=== PATIENT | female | born 1935 | race Caucasian/White ===

== ENCOUNTER 2017-03-14 02:17 | Inpatient (IN) | payer OTHER ==
[2017-03-14] VITALS (41 sets, daily range): BP systolic 102–166; BP diastolic 43–86; PULSE 61–97; TEMP 36.6–36.8; O2SAT 90–100; Ht 152.4 cm; Wt 71.9 kg
[~2017-03-14] VITALS: Ht 152.4 cm; Wt 71.9 kg
[~2017-03-14 02:17] MED LIST: ASPI81TA28 PO; CLC100 PO; GLC5 PO; LOSA1TAB38 PO; METO50TA7 PO; MRLP17 PO; NOTE:; OMEP20CA9 PO; PATADAY 2% OPB; TRAM-10 PO; TRIA0.1C20; XNX25 PO
[2017-03-14] MEDS ORDERED: NITROGLYCERIN 0.4 MG SL PER TAB CHARGE ONE (02:41)
--- NOTE | 2017-03-14 02:53 | EMERGENCY ROOM VISIT NOTE ---
History Report prepared by Wilman: Mino Ferreira Under the Supervision of: Dr. Clara Alexander D.O. First contact with patient: 02:27 Chief Complaint: CHEST PAIN Stated Complaint: CHEST PAIN History of Present Illness The patient is an 81 year old female who presents to the Emergency Room with complaints of intermittent chest pain that started around midnight. The patient has also been experiencing bilateral arm pain and shoulder pain. Her pain was rated 8/10 in severity at its worst. The patient has had the same pain three times over the past month. She notes that the pain was worse tonight. She was given 1 dose of Nitroglycerin and 324 mg Aspirin en route to the ED. The patient's pain initially resolved after receiving nitroglycerin but returned upon arrival to the ED. The patient had a heart attack with a stent placed in the mid LAD on 08/10/11. She also has a pacemaker. The patient follows up with Dr. Sanz (Livestock Showman) and Dr. Pino (Family Medicine). The patient also complains of a dry mouth. She notes that she was sick recently. Source of History: patient Onset: midnight Position: chest Symptom Intensity: 8/10 Timing: intermittent Note: Patient also complains of arm / shoulder pain. Review of Systems See HPI for pertinent positives & negatives. A total of 10 systems reviewed and were otherwise negative. Past Medical & Surgical Medical Problems: (1) ACS (acute coronary syndrome) (2) Benign hypertension (3) Carpal tunnel syndrome (4) Coronary artery disease (5) Diabetes mellitus type 2 (6) Diverticular disease of colon (7) H/O cardiac pacemaker (8) History of cholecystectomy (9) History of total hysterectomy (10) Hyperlipidemia Surgical Problems: (1) H/O percutaneous transluminal coronary angioplasty (2) Stented coronary artery Family History Cancer Diabetes mellitus Gallbladder disease Heart disease Hypertension Social History Smoking Status: Former Smoker Alcohol Use: none Marital Status: Housing Status: lives with family Occupation Status: unemployed Current/Historical Medications Scheduled Aspirin (Aspirin Ec), 81 MG PO DAILY Bioflavonoid Products (Vitamin C), 1 TAB PO DAILY Cholecalciferol (Vitamin D 400), 400 UNIT PO DAILY Docusate Sodium (Colace), 100 MG PO QAM Docusate Sodium (Colace), 200 MG PO HS Fish Oil ([place]-3), 1 CAP PO DAILY Ketoconazole (Ketoconazole), 1 APPLN TOP BID Losartan Potassium (Cozaar), 100 MG PO DAILY Metoprolol Succ (Toprol Xl) (Toprol-Xl), 50 MG PO DAILY Omeprazole (Prilosec), 40 MG PO BID Polyethylene Glycol 3350 (Miralax), 8.5 GM PO DAILY Tramadol (Ultram), 50 MG PO Q6HR PRN Triamcinolone Acetonide (Topic (Triderm), 1 APPLN TOP BID Vitamin E (Vitamin E 100 Iu), 100 INTER.UNIT PO DAILY Scheduled PRN Alprazolam (Xanax), 0.25 MG PO BID PRN for Anxiety Allergies Coded Allergies: MILADY Inhibitors (Verified Allergy, Unknown, ., 03/14/17) Adhesives (Verified Allergy, Unknown, ., 03/14/17) Doxycycline (Verified Allergy, Unknown, ., 03/14/17) Ethylene Diamine Tetraacetic Acid (Verified Allergy, Unknown, ., 03/14/17) Iodinated Diagnostic Agents (Verified Allergy, Unknown, ., 03/14/17) Methylparaben (Verified Allergy, Unknown, ., 03/14/17) Nystatin (Verified Allergy, Unknown, 03/14/17) Penicillins (Verified Allergy, Unknown, 03/14/17) Simvastatin (Verified Allergy, Unknown, ., 03/14/17) Tetracyclines (Verified Allergy, Unknown, 03/14/17) Triamcinolone (Verified Allergy, Unknown, ., 03/14/17) Physical Exam Vital Signs Date Time Temp Pulse Resp B/P Pulse Ox O2 Delivery O2 Flow Rate FiO2 03/14/17 05:40 80 16 165/82 96 Room Air 03/14/17 05:25 85 16 171/87 96 Room Air 03/14/17 04:00 157/68 03/14/17 03:52 92 18 100 Nasal Cannula 2.0 03/14/17 03:45 144/68 03/14/17 03:42 84 23 145/64 95 Room Air 03/14/17 03:42 145/64 03/14/17 03:37 84 22 97 03/14/17 03:32 79 20 98 03/14/17 03:22 63 25 97 03/14/17 03:20 106/53 03/14/17 03:12 66 21 97 03/14/17 03:07 68 17 98 03/14/17 03:00 118/69 03/14/17 02:59 92/75 03/14/17 02:57 78 22 95 03/14/17 02:49 03/14/17 02:48 93 20 154/82 96 Room Air 03/14/17 02:47 98 26 96 03/14/17 02:37 93 20 96 03/14/17 02:30 154/102 03/14/17 02:28 97 03/14/17 02:27 89 19 96 03/14/17 02:23 Room Air 03/14/17 02:20 171/86 03/14/17 02:17 96 Room Air 03/14/17 02:17 97 Room Air 03/14/17 02:17 36.9 93 24 171/86 96 Room Air Physical Exam HEENT: Head - normocephalic and atraumatic Pupils are equal, round, and reactive to light. Extraocular eye muscles are intact, and sclera are anicteric. Nose - moist nasal mucosa without discharge. Mouth - moist buccal mucosa. Oropharynx is nonerythematous and there is no tonsillar exudate or edema noted. Neck: Supple; no JVD, nuchal rigidity, cervical lymphadenopathy. Heart: Regular rate and rhythm. There is a normal S1 and S2 with no murmurs, clicks, or gallops appreciated. Lungs: Clear to auscultation bilaterally with no wheezes, rales, or rhonchi. Abdomen: Soft, completely nontender, nondistended, with good bowel sounds. There are no palpable pulsatile masses or hepatosplenomegaly. There is no guarding, rigidity, or rebound noted. Extremities: Trace pedal edema bilaterally. No evidence of cyanosis, or clubbing. There are easily palpable peripheral pulses. Skin: warm and dry with good turgor and no rashes. Medical Decision & Procedures ER Provider Diagnostic Interpretation: X-ray results as stated below per interpretation by me. Chest One View Portable: Pacemaker in place, narrow mediastinum, no pulmonary infiltrates, mild congestive heart failure. Laboratory Results Test 03/14/17 01:50 03/14/17 05:10 Prothrombin Time 10.7 SECONDS (9.0-12.0) Prothromb Time International Ratio 1.0 (0.9-1.1) Activated Partial Thromboplast Time 24.6 SECONDS (21.0-31.0) Partial Thromboplastin Ratio 0.9 Magnesium Level 2.2 mg/dl (1.8-2.4) Total Bilirubin 0.3 mg/dl (0.2-1) Aspartate Amino Transf (AST/SGOT) 19 U/L (15-37) Alanine Aminotransferase (ALT/SGPT) 26 U/L (12-78) Alkaline Phosphatase 81 U/L (45-117) Total Creatine Kinase 113 U/L (26-192) Creatine Kinase MB 2.6 ng/ml (0.5-3.6) Creatine Kinase MB Ratio 2.3 (0-3.0) Troponin I 0.090 ng/ml (0-0.045) Pro-B-Type Natriuretic Peptide 716 pg/ml (0-1800) Total Protein 7.3 gm/dl (6.4-8.2) Albumin 3.7 gm/dl (3.4-5.0) Globulin 3.6 gm/dl (2.5-4.0) Albumin/Globulin Ratio 1.0 (0.9-2) Kaolin Activated Coagulation Time 497 SECONDS (94-140) Laboratory results per my review. Medications Administered Medications (Trade) Dose Ordered Sig/Lucio Route Start Time Stop Time Status Last Admin Dose Admin Nitroglycerin (Nitrostat Tab) 0.4 mg STK-MED ONCE .ROUTE 03/14/17 02:41 03/14/17 02:42 DC 03/14/17 02:43 0.4 MG Morphine Sulfate (MoRPHine SULFATE INJ) 2 mg STK-MED ONCE .ROUTE 03/14/17 03:04 03/14/17 03:05 DC 03/14/17 03:08 2 MG Ondansetron HCl (Zofran Inj) 4 mg NOW STAT IV 03/14/17 03:05 03/14/17 03:06 DC 03/14/17 03:08 4 MG Heparin Sodium (Porcine) 5000 unit 5,000 unit STK-MED ONCE .ROUTE 03/14/17 03:25 03/14/17 03:26 DC 03/14/17 03:29 5,000 UNIT Heparin Sodium/ Dextrose (Heparin 25,000 Unit/500ml D5W) 500 ml @ 21 mls/hr [id number] PRN IV 03/14/17 03:30 03/14/17 06:00 DC 03/14/17 03:30 21 MLS/HR Heparin Sodium (Porcine) (Heparin Iv Bolus) 10,000 unit STK-MED ONCE .ROUTE 03/14/17 03:49 03/14/17 03:50 DC 03/14/17 03:49 6,000 UNIT Midazolam HCl (Versed Inj) 2 mg STK-MED ONCE .ROUTE 03/14/17 03:50 03/14/17 03:51 DC 03/14/17 03:50 1 MG Fentanyl Citrate (Fentanyl Inj) 100 mcg STK-MED ONCE .ROUTE 03/14/17 03:50 03/14/17 03:51 DC 03/14/17 03:50 100 MCG Methylprednisolone Sodium Succinate (Solu-Medrol IV) 125 mg STK-MED ONCE .ROUTE 03/14/17 03:54 03/14/17 03:55 DC 03/14/17 04:04 125 MG Diphenhydramine HCl (Benadryl Inj) 50 mg STK-MED ONCE .ROUTE 03/14/17 03:54 03/14/17 03:55 DC 03/14/17 04:04 50 MG Labetalol HCl (Normodyne IV) 5 mg STK-MED ONCE IV 03/14/17 04:43 03/14/17 04:44 DC 03/14/17 04:43 5 MG Eptifibatide (Integrilin Inj) 40 mg STK-MED ONCE IV 03/14/17 04:53 03/14/17 04:54 DC 03/14/17 04:53 40 MG Eptifibatide (Integrilin Inj) 75 mg STK-MED ONCE IV 03/14/17 04:53 03/14/17 04:54 DC 03/14/17 04:53 75 MG Procedure Medications administered include Nitroglycerin SL, Morphine Sulfate IV, Zofran IV. ECG Indication: chest pain Rate (beats per minute): 95 Rhythm: normal sinus Findings: ST depression (Lateral), no ectopy Comparison ECG Date: 2013 Change: ST depressions are new. ED Course 0240: Past medical records reviewed. The patient was evaluated in room A3. A complete history and physical exam was performed. An IV lock was initiated and labs are drones above. A twelve-lead EKG was obtained as described above. 0241: Nitroglycerin 0.4 mg SL. 0245: Repeat EKG obtained and compared to first EKG. Repeat EKG shows normal sinus at 93, worsened ST depression in the lateral leads and ST leads inferiorly , no ectopy. 0305: The patient is having increased pain. Third EKG will be acquired. 0305: Zofran 4 mg IV, Morphine Sulfate 2 mg IV. 0310: Third EKG: Normal sinus at 72, deeper ST segment depression with T wave inversions inferiorly. 0318: Discussed the case with Bairon Haji Livestock Showman. He recommends contacting Dr. Phillip (Interventional Cardiology). 0319: Heparin bolus and drip 0320: The patient is not feeling better after Morphine. Pain is currently rated 9/10 in severity. 0322: Discussed the case with Bairon [place]. He will be in the see the patient. 0325: Heparin Sodium 5000 unit/syringe 5 ml @ 10 mls/min. 0330: Heparin Sodium / Dextrose 500 ml @ 21 mls/hr. 0335: Heart Alert was called. 0345: The patient is still having severe discomfort. She is on a heparin drip. laboratory secretary team is assembling. 0351: Dr. Phillip is at bedside evaluating the patient. Medical Decision The patient is an 81 year old female who presents to the ED with chest pain. Differential diagnosis includes unstable angina, acute coronary syndrome, STEMI , GERD, aortic dissection. Laboratory interpretation: normal white count, stable H&H, BUN 21, creatinine 0.8, glucose 125, troponin 0.09, LFTs normal, coagulation studies normal. This is an 81-year-old female patient who presents to the emergency department with substernal chest discomfort that radiates to both arms since midnight. The patient has an elevated troponin. Her EKG was done and may Concerning for ischemia. I discussed the case with the trouble clerk and we have called a heart alert. The patient will go to the [facility] shortly. Consults Time Called: [phone] Consulting Physician: Bairon Haji Livestock Showman. Returned Call: [phone] Phillip (Interventional Cardiology). Additional Consults: Time Called: [phone] Consulted Physician: Bairon [place]. Returned Call: [phone] Additional Comments: He will be in the see the patient. Impression Primary Impression: NSTEMI (non-ST elevated myocardial infarction) Critical Care I have personally spent greater than 60 minutes of critical care time in the direct management of this patient. This includes bedside care, interpretation of diagnostic studies, and testing, discussion with consultants, patient, and family members, and other required patient management activities. This 60 minutes is in excess of all separately billable procedures. Scribe Attestation The scribe's documentation has been prepared under my direction and personally reviewed by me in its entirety. I confirm that the note above accurately reflects all work, treatment, procedures, and medical decision making performed by me. Departure Information Dispostion Other (Cardiac Catherization Lab) Referrals No Doctor, Assigned (PCP) Patient Instructions [facility]
[2017-03-14 02:59] LABS: BASO % 0.4 %; BASO ABS # 0.03 K/uL (0-0.2); COMPLETE YES; EOS % 1.7 %; HEMATOCRIT 43.6 % (37-47); IG% 0.2 %; LYMPH % 27.2 %; LYMPH ABS # 2.28 K/uL (1.2-3.4); MEAN CELL VOLUME 94.6 fL (80-100); MEAN CORPUSCULAR HEMOGLOBIN 31.7 pg (25-34); MEAN CORPUSCULAR HGB CONC 33.5 g/dl (32-36); MEAN PLATELET VOLUME 10.3 fL (7.4-10.4); NEUT % 59.5 %; PLATELET COUNT 270 K/uL (130-400); RED BLOOD COUNT 4.61 M/uL (4.2-5.4); WHITE BLOOD COUNT 8.39 K/uL (4.8-10.8)
[2017-03-14] MEDS ORDERED: MoRPHine SULFATE 2 MG/ML CARP ONE (03:04)
[2017-03-14] MEDS ORDERED: ONDANSETRON INJ 2 MG/ML 2 ML VIAL IV STA (03:05)
[2017-03-14] MEDS ORDERED: ONDANSETRON INJ 2 MG/ML 2 ML VIAL ONE (03:05)
[2017-03-14] MEDS ORDERED: MoRPHine SULFATE 4 MG/ML 1 ML CARP\\VIAL IV STA (03:05)
[2017-03-14 03:06] LABS: PARTIAL THROMBOPLASTIN RATIO 0.9; PROTHROMBIN TIME (PATIENT) 10.7 SECONDS (9.0-12.0)
[2017-03-14 03:12] LABS: BUN/CREATININE RATIO 23.9 (10-20); CALCIUM 9.7 mg/dl (8.5-10.1); CREATININE 0.89 mg/dl (0.60-1.20)
[2017-03-14] MEDS ORDERED: HEPARIN SOD 5000 UNIT/0.5 ML CARP ONE (03:25)
[2017-03-14] MEDS ORDERED: HEPARIN IV BOLUS 5,000 UNIT in SYRINGE 0 ML IV STA (03:25)
[2017-03-14] MEDS ORDERED: HEPARIN 25000 UNIT/500 ML D5W ONE (03:25)
[2017-03-14 03:30] LABS: CKMB/CK RATIO 2.3 (0-3.0); POTASSIUM 4.4 mmol/L (3.5-5.1)
[2017-03-14] MEDS ORDERED: HEPARIN 25,000 UNIT/500ML D5W 500 ML IV PRN (03:30)
[2017-03-14] MEDS ORDERED: OMEP40CA41 PO (03:30)
[2017-03-14] MEDS ORDERED: ALPR0.25 PO (03:30)
[2017-03-14] MEDS ORDERED: CHOL400C10 PO (03:32)
[2017-03-14] MEDS ORDERED: BIOF500C2 PO (03:32)
[2017-03-14] MEDS ORDERED: OMEG10007 PO (03:33)
[2017-03-14] MEDS ORDERED: VITA100C2 PO (03:33)
[2017-03-14] MEDS ORDERED: NZRCR TOP (03:35)
[2017-03-14] MEDS ORDERED: POLY335019 PO (03:36)
[2017-03-14] MEDS ORDERED: DOCU-94 PO ×2 (03:37)
[2017-03-14] MEDS ORDERED: TRIA0.1C2 TOP (03:39)
[2017-03-14] MEDS ORDERED: HEPARIN SOD (PORCINE) 1000 UNIT/ML 10 ML VIAL ONE (03:49)
[2017-03-14] MEDS ORDERED: NiCARDipine HCL INJ 2.5 MG/ML 10 ML AMP ONE (03:49)
[2017-03-14] MEDS ORDERED: NITROGLYCERIN/D5W 100MCG/ML 20ML SYR ONE (03:49)
[2017-03-14] MEDS ORDERED: FENTANYL CITRATE INJ 50 MCG/1 ML 2 ML VIAL ONE ×2 (03:50→05:27)
[2017-03-14] MEDS ORDERED: MIDAZOLAM HCL 1 MG/ML 2ML VIAL ONE (03:50)
[2017-03-14] MEDS ORDERED: METHYLPREDNISOLONE 125 MG VIAL ONE (03:54)
[2017-03-14] MEDS ORDERED: DiphenhydrAMINE HCL 50 MG/ML VIAL ONE (03:54)
[2017-03-14 04:09] LABS: MAGNESIUM 2.2 mg/dl (1.8-2.4)
--- NOTE | 2017-03-14 04:14 | Procedure Note ---
Pre-Mod Sedation Assessment General Date of Moderate Sedation: March 14, 2017. Vital Signs: Vital Signs Past 12 Hours Date Time Temp Pulse Resp B/P Pulse Ox O2 Delivery O2 Flow Rate FiO2 03/14/17 04:00 157/68 03/14/17 03:52 92 18 100 Nasal Cannula 2.0 03/14/17 03:45 144/68 03/14/17 03:42 84 23 145/64 95 Room Air 03/14/17 03:42 145/64 03/14/17 03:37 84 22 97 03/14/17 03:32 79 20 98 03/14/17 03:22 63 25 97 03/14/17 03:20 106/53 03/14/17 03:12 66 21 97 03/14/17 03:07 68 17 98 03/14/17 03:00 118/69 03/14/17 02:59 92/75 03/14/17 02:57 78 22 95 03/14/17 02:49 03/14/17 02:48 93 20 154/82 96 Room Air 03/14/17 02:47 98 26 96 03/14/17 02:37 93 20 96 03/14/17 02:30 154/102 03/14/17 02:28 97 03/14/17 02:27 89 19 96 03/14/17 02:23 Room Air 03/14/17 02:20 171/86 03/14/17 02:17 96 Room Air 03/14/17 02:17 97 Room Air 03/14/17 02:17 36.9 93 24 171/86 96 Room Air Review Cardiovascular: regular rate, rhythm, no edema, no JVD, + systolic murmur Abdomen: normal bowel sounds, non tender, soft, no pulsatile mass Lungs: lungs clear Pre-Sedation Airway Assessment Oral Cavity: Dentures Able to Visualize Vocal Cords: No Short Thick Neck: No Hx of Sleep Apnea: No Smoking Status: Former Smoker ASA Classification: Class III Procedure Planning Contraindications-for Mod Sed: None Yes Notes The planned sedation has been discussed with the patient and consent obtained. I have identified the patient, determined the appropriateness of sedation and have assessed the patient immediately prior to the procedure. All medicine(s) and interventions are by my order.
[2017-03-14] MEDS ORDERED: LABETALOL HCL IV 5 MG/ML 20ML IV ONE (04:43)
[2017-03-14] MEDS ORDERED: EPTIFIBATIDE 0.75 MG/ML 75MG VIAL IV ONE (04:53)
[2017-03-14] MEDS ORDERED: EPTIFIBATIDE 2 MG/ML 10 ML VIAL IV ONE (04:53)
[2017-03-14] MEDS ORDERED: CLOPIDOGREL BISULFATE 300 MG TAB PO ONE (05:27)
[2017-03-14] MEDS ORDERED: ALPRAZOLAM 0.25 MG TAB PO PRN (06:00)
[2017-03-14] MEDS ORDERED: TRAMADOL HCL 50 MG TAB PO PRN (06:00)
[2017-03-14] MEDS ORDERED: ATROPINE SULFATE 0.1 MG/ML 5ML SYR IV PRN (06:00)
[2017-03-14] MEDS ORDERED: DEXTROSE 50% 50 ML SYR IV PRN (06:00)
[2017-03-14] MEDS ORDERED: LORAZEPAM INJ 0.5 MG in SYRINGE 0 ML IV PRN (06:00)
[2017-03-14] MEDS ORDERED: POLYETHYLENE (MIRALAX) 17 GM PACK PO PRN (06:00)
[2017-03-14] MEDS ORDERED: EPTIFIBATIDE BOLUS / DRIP IV ONE (06:00)
[2017-03-14] MEDS ORDERED: GLUCOSE 40% GEL 15 GM TUBE PO PRN (06:00)
[2017-03-14] MEDS ORDERED: GLUCOSE 10 TABS/TUBE PO PRN (06:00)
[2017-03-14] MEDS ORDERED: MoRPHine SULFATE 2 MG/ML CARP IV PRN ×2 (06:00)
[2017-03-14] MEDS ORDERED: ACETAMINOPHEN 325 MG TAB PO PRN (06:00)
[2017-03-14] MEDS ORDERED: GLUCAGON FOR INJ 1 MG VIAL SQ PRN (06:00)
[2017-03-14] MEDS ORDERED: ONDANSETRON INJ 2 MG/ML 2 ML VIAL IV PRN ×2 (06:00→16:00)
--- NOTE | 2017-03-14 06:03 | Procedure Note ---
Post-Mod Sedation Assessment General Date of Moderate Sedation March 14, 2017. Vital Signs: Vital Signs Past 12 Hours Date Time Temp Pulse Resp B/P Pulse Ox O2 Delivery O2 Flow Rate FiO2 03/14/17 05:40 80 16 165/82 96 Room Air 03/14/17 05:25 85 16 171/87 96 Room Air 03/14/17 04:00 157/68 03/14/17 03:52 92 18 100 Nasal Cannula 2.0 03/14/17 03:45 144/68 03/14/17 03:42 84 23 145/64 95 Room Air 03/14/17 03:42 145/64 03/14/17 03:37 84 22 97 03/14/17 03:32 79 20 98 03/14/17 03:22 63 25 97 03/14/17 03:20 106/53 03/14/17 03:12 66 21 97 03/14/17 03:07 68 17 98 03/14/17 03:00 118/69 03/14/17 02:59 92/75 03/14/17 02:57 78 22 95 03/14/17 02:49 03/14/17 02:48 93 20 154/82 96 Room Air 03/14/17 02:47 98 26 96 03/14/17 02:37 93 20 96 03/14/17 02:30 154/102 03/14/17 02:28 97 03/14/17 02:27 89 19 96 03/14/17 02:23 Room Air 03/14/17 02:20 171/86 03/14/17 02:17 96 Room Air 03/14/17 02:17 97 Room Air 03/14/17 02:17 36.9 93 24 171/86 96 Room Air Review - Discharge Criteria Vital Signs Stable: Yes Alert/Oriented/Conversant: Yes Returned to Baseline Mental St: Yes Nausea Absent/Minimal: Yes Pain/Discomfort/Absent/Minimal: Yes Normal/Baseline Respirations: Yes Active Bleeding?: No Pt Received D/C Instructions: N/A Prescriptions Given: None Specific Proced. D/C Criteria Distal Pulses Present (Cardiac: Yes Groin site assessed-Card Cath: N/A Voided Prior To Discharge: N/A Discharged Patients Adult Escort/Transportation: N/A
[2017-03-14] MEDS ORDERED: LORAZEPAM 2 MG/ML 1 ML VIAL IV PRN (06:15)
[2017-03-14] MEDS ORDERED: EPTIFIBATIDE INJ 75 MG PREMIXED IV SCH (06:30)
[2017-03-14 06:31] LABS: BASO % 0.2 %; BASO ABS # 0.03 K/uL (0-0.2); EOS % 0.1 %; HEMATOCRIT 41.7 % (37-47); IG% 0.3 %; LYMPH % 4.7 %; MEAN CELL VOLUME 94.1 fL (80-100); MEAN CORPUSCULAR HEMOGLOBIN 30.7 pg (25-34); MEAN PLATELET VOLUME 10.3 fL (7.4-10.4); MONO % 1.7 %; PLATELET COUNT 247 K/uL (130-400); RED BLOOD COUNT 4.43 M/uL (4.2-5.4); WHITE BLOOD COUNT 14.77 K/uL (4.8-10.8)
[2017-03-14 06:32] LABS: COMPLETE YES; MEAN CORPUSCULAR HGB CONC 32.6 g/dl (32-36)
[2017-03-14] MEDS: INSULIN ASPART 100 UNITS/ML 3 ML PEN SC SCH ×4 (06:45→20:49)
[2017-03-14] MEDS ORDERED: SODIUM CHLORIDE 0.9% 1000ML 1,000 ML IV ONE (06:45)
--- NOTE | 2017-03-14 06:48 | Cardiac Catheterization ---
Procedure Note Procedure Date March 14, 2017. Pre-Procedure Diagnosis Non STEMI, Acute Coronary Syndrome, CAD AUC Score 9 Procedure(s) Performed Coronary Angiography, Left Heart Cath, LV Angiography, PTCA, Drug Eluting Stent Community Educator Dr. Phillip Group President(s) Estimated Blood Loss 25 ml Medication(s) Clopidogrel (600 mg orally post PCI), Fentanyl, Heparin, Integrilin, Labetalol, Nicardipine (Intra-arterial and intracoronary), Versed, Lidocaine 1% The patient was given 125 mg of intravenous methylprednisolone and 50 mg of intravenous diphenhydramine in the emergency department prior to going to the labor economics professor. This was because of a history of contrast dye allergy. She had also received aspirin prior to the procedure. Summary of Findings Clinical indications: Non ST elevation myocardial infarction. Inferior and anterolateral ST segment depressions on electrocardiogram. Persistent chest pain despite nitroglycerin and morphine. History of coronary artery disease. 2.5 x 12 mm Xience drug-eluting stent in mid LAD deployed in 2010. Mild atherosclerotic disease in left circumflex and right coronary artery at that time. CAD risk factors include hypertension, dyslipidemia, diabetes mellitus. Intolerant of statins. The patient is followed for primary care by Dr. Diaz Morton and for her cardiology care by Mr. Paras Sanz. She presented to the emergency department tonight with recurrent anginal chest and arm discomfort. Electrocardiogram with inferior and anterolateral ST depressions. History of dual-chamber pacemaker. Catheterization site: 6 Indonesian slender glide sheath right radial artery. Diagnostic catheter: 6 Indonesian brachial 3.5 diagnostic catheter. Interventional equipment: 6 Indonesian EBU 3.5 guide catheter, [place] guidewire, Medtronic Sprinter 2.5 x 12 mm balloon dilatation catheter, Medtronic Resolute Integrity 3.0 x 22 mm drug-eluting stent, Medtronic NC Euphora balloon dilatation catheter. Protocol: Following angiography coronary intervention was performed. Four balloon inflations to the proximal left circumflex maximum pressure of 8 atmospheres and maximum duration of 20 seconds. The stent was deployed at a pressure of 9 atmospheres for 45 seconds. It was redilated with the stent delivery balloon to a pressure of 14 atmospheres for 20 seconds. Three balloon inflations were performed with the noncompliant balloon to the stent to a maximum pressure of 20 atmospheres and maximum duration of 33 seconds. Intravenous heparin and Integrilin were administered prior to intervention. A therapeutic activated clotting time was documented. Intravenous labetalol was administered because of hypertension and elevated heart rate. Intra-arterial and intracoronary nicardipine were administered during the procedure. Hemostasis: Terumo TR band. Complications: None Findings: Fluoroscopy revealed the presence of the atrial and ventricular pacemaker leads, coronary calcifications, pacemaker generator, and LAD stent. The coronary circulation was right dominant. Large caliber left main coronary artery giving rise to medium caliber left anterior descending left circumflex coronary arteries. The proximal LAD had a 10% stenosis. The proximal LAD gave rise to very small caliber 1st diagonal artery. The early mid LAD had a 30% stenosis prior to the stent. In stent 0-10% restenosis. 30% stenosis following the stent. The stented region gave rise to a small caliber 2nd diagonal artery which had an 80% ostial stenosis. After the stent remainder of the mid and distal LAD had no obstructive disease. The LAD terminates at the apex as a small-caliber vessel. The proximal left circumflex coronary artery had a 99% stenosis. This was preceded by a long area of atherosclerotic disease. BHARTI 2 flow past the stenosis. The mid circumflex gave rise to a very small caliber 1st marginal artery and a long small caliber 2nd marginal artery. Following PCI the residual stenosis in the proximal circumflex was 0%. There is BHARTI 3 flow into the circumflex and its marginal branches. No evidence of dissection, thrombus, perforation, or distal embolic event. The right coronary was a medium caliber vessel. 10-20% proximal stenosis. Diffuse 20-30% stenoses in the mid segment. The distal RCA had a 20-30% stenosis. The distal RCA gave rise to very small caliber bifurcating posterior descending artery. It then gave rise to long small caliber 1st and 2nd posterolateral branches. Left ventricular angiography was performed prior to coronary angiography. It was performed with a hand injection using the brachial 3.5 catheter. This was a limited angiogram. The. All LV segments contracted normally. Estimated LV ejection fraction 65%. No significant mitral regurgitation. plan: The patient will be continued on aspirin, metoprolol, and losartan. She was given a loading dose of clopidogrel post PCI. She should remain on dual antiplatelet therapy for minimum of 6 months. Aspirin therapy indefinitely. She has a history of adverse reaction to statins. She will be admitted to the intensive care unit. Intravenous Integrilin for 6 hours post PCI. She will be admitted to the [facility] hospitalist service. [facility] cardiology consultation. The patient is followed by both [facility] primary care and [facility] cardiology. Serial electrocardiograms, cardiac enzymes, CBCs , metabolic profiles. Echocardiogram to further assess LV systolic function. Further management by the [facility] Hospitalist and Cardiology Services. The case was discussed by me with the [facility]. Hemodynamics Rest Ao: 149/65/103 mm Hg Final Ao: 136/61/95 mm Hg LV: 148/19 mm Hg. This was at rest prior to angiography. Recommendations Medical therapy and/or Counseling, PCI without planned CABG Specimens None Radiation Exposure (mGy) 2459 Contrast (mls) 190 mL of Visipaque Fluids (cc crystalloids) 143 Drains None Anesthesia Intravenous Versed and fentanyl. Lidocaine 1%. Procedural Complication(s) None Disposition ICU ACC Data Cardiac Status Clinical evaluation leading to the procedure CAD Presntation: Unstable angina, Non STEMI Anginal Classification: CCS IV Heart Failure: No Cardiogenic Shock w/in 24Hrs: No Cardiac Arrest w/in 24Hrs: No Imaging studies past 6 months: No Stress studies past 6 months: No Standard Exercise Stress Test: No Stress Echocardiogram: No Stress Testing w/SPECT MPI: No Cardiac CTA: No Coronary Anatomy Dominant: Right Left Main (% Stenosis): Normal LAD (% Stenosis): Proximal (10), Mid (30% stenoses before and after stent. In stent 0-10.) D1 (% Stenosis): Normal D2 (% Stenosis): Ostial (80) Circumflex (% Stenosis): Proximal (99) OM1 (% Stenosis): Normal OM2 (% Stenosis): Normal RCA (% Stenosis): Proximal (10-20), Mid (20-30), Distal (20-30) R PDA (% Stenosis): Normal R PL1 (% Stenosis): Normal R PL2 (% Stenosis): Normal Left Ventricular Angiography EF (%): 65 Wall Motion: Inferior (Normal), Apical (Normal), Anterior (Normal) Mitral Regurgitation: None Diagnostic Physician's Name: Sal Phillip M.D. Status: Emergency Closure Device Percutaneous Entry Location: Radial Closure Device: Radial Band Recommendations: Medical therapy and/or Counseling, PCI without planned CABG PCI Indication: PCI for high risk Non-STEMI Lesion Segment Name: Proximal left circumflex Culprit Artery: Yes Stenosis Prior to Rx (%): 99 Chronic Total Occlusion: No IVUS: No FFR: No Pre-Procedure BHARTI Flow: 2 Previously Treated Lesion: No Lesion Complexity: Non-High/Non-C Lesion Length (mm): 18 Thrombus Present: No Bifurcation Lesion: No Guidewire Across Lesion: Yes Guidewire: Stenosis Post-Procedure (%): 0 Post-Procedure BHARTI Flow: 3 Device(s) Deployed: Yes Type of Device(s): [place] [employer] 3 X 22 mm Resolute Integrity ANGELY. Post dilated with 3.25 X 12 mm non compliant balloon. Intraprocedure Events Significant Dissection: No Perforation: No
[2017-03-14 06:55] LABS: ESTIMATED AVERAGE GLUCOSE 134 mg/dl; HA1C FLAG Normal (Normal)
[2017-03-14 07:10] LABS: BUN/CREATININE RATIO 26.6 (10-20); CALCIUM 9.1 mg/dl (8.5-10.1); CREATININE 0.74 mg/dl (0.60-1.20)
--- NOTE | 2017-03-14 07:41 | DIAGNOSTIC IMAGING REPORT ---
CHEST ONE VIEW PORTABLE HISTORY: Central chest pain. COMPARISON: Chest 06/21/2014. FINDINGS: Calcified granuloma within the right lung apex. The heart is stable in size. Left-sided dual-chamber pacemaker. No focal lung consolidations to suggest pneumonia. No evidence for pulmonary edema. No pleural effusions. No pneumothorax. The lungs remain hyperexpanded. IMPRESSION: No significant change compared to the prior study. No acute process. Electronically signed by: Mane Garrido M.D. 03/14/2017 7:40 AM Dictated Date/Time: 03/14/2017 7:39 AM
[2017-03-14] MEDS: CLOPIDOGREL BISULFATE 75 MG TAB PO SCH ×2 (08:06→14:14)
[2017-03-14] MEDS: LOSARTAN POTASSIUM 50 MG TAB PO SCH ×2 (08:07→11:57)
[2017-03-14] MEDS: DOCUSATE SODIUM 100 MG CAP PO SCH ×3 (08:07→20:48)
[2017-03-14] MEDS: PANTOprazole SOD 40 MG TAB PO SCH ×2 (08:07→20:48)
[2017-03-14] MEDS: ASPIRIN 81 MG ECTAB PO SCH ×2 (08:07→14:14)
[2017-03-14] MEDS: METOPROLOL SUCC 50MG EXT REL TAB PO SCH (08:07)
[2017-03-14] MEDS: ONDANSETRON INJ 2 MG/ML 2 ML VIAL IV PRN ×2 (08:08→11:55)
--- NOTE | 2017-03-14 08:30 | HISTORY & PHYSICAL EXAMINATION ---
DATE OF ADMISSION: 03/14/2017 PRIMARY CARE DOCTOR: Dr. Pino. HX obtained from px and records. CHIEF COMPLAINT: Chest pain. HISTORY OF PRESENT ILLNESS: Medical history significant for CAD status post stenting, 3 AVB sp PPM<, hypertension, hyperlipidemia, statin intolerance, DM2, diet controlled, PVD as per records, anxiety disorder, chronic constipation. Recent confinement 2010 for non-ST elevation myocardial infarction sp LAD stent placement. PX also found to have third degree AVblock sp PPM. Retroperitoneal bleed complication during confinement. In the last month intermittent central chest pain symptoms during exertion, relieved by rest.rtion. Last night, the patient was reading when she had substernal discomfort, achy, going to both arms. No shortness of breath, no diaphoresis. Patient compliant with home medications. Given nitroglycerin, aspirin en route to the ER. Chest pain resolved upon arrival at the ER. At the Emergency Room, initial EKG showed ST depressions. Heart alert called because of recurrent chest pain symptoms. Patient brought to the cardiac geophysical laboratory supervisor. Occluded Left circumflex artery stented. MEDICAL HISTORY: As above. [place] [facility] [place]. Low dose Lipitor tried - px could not tolerate it. sinusitis episode sp Z-Trace last month. SURGICAL HISTORY: She has had hysterectomy, pacemaker placement, carpal tunnel surgery, hernia repair, and cholecystectomy. HOME MEDICATIONS: Include tramadol, vitamin D, fish oil, ketaconazole, Cozaar, Toprol, Prilosec, MiraLax, Triderm, Xanax, aspirin, vitamin C, vitamin D, and Colace. ALLERGIES: ADHESIVE, DOXYCYCLINE, METHYLPARABEN, NYSTATIN, TRIAMCINOLONE, SIMVASTATIN, PENICILLIN, TETRACYCLINE, MILADY INHIBITOR. FAMILY HISTORY: History of heart disease, cancer. PERSONAL AND SOCIAL HISTORY: Nonsmoker, no chronic intake of alcoholic beverages. Homemaker in her younger years. Lives alone. REVIEW OF SYSTEMS: As per HPI, all other ROS negative. PHYSICAL EXAMINATION: VITAL SIGNS: Blood pressure was noted to be 145/69, pulse rate 88, RR 22, temperature 36.9, sats 98 on 2 liters. GENERAL: Noted to be slightly anxious, obese, no respiratory distress. SKIN: Normal color. HEENT: Bayard palpebral conjunctivae, dry mucosa. NECK: Short neck. LUNGS: Decreased breath sounds. HEART: Regular rate and rhythm. ABDOMEN: Some distention, nontender. EXTREMITIES: No edema, no tenderness. NEUROLOGIC: No gross focality except for chronic lip asymmetry. LABORATORY DATA: Hemoglobin 14.6, hematocrit 33.6, white cells 8.39, platelets 270. Sodium 140, potassium 4.4, chloride 101, CO2 32, BUN 10, creatinine 0.8, glucose 125. Troponin was noted to be 0.09. IMAGING DATA: Chest x-ray as per my interpretation atelectasis, cardiomegaly. EKG on admission as per my interpretation : rate of 90, normal sinus rhythm, diffuse ST depression. ASSESSMENT: 1. Acute coronary syndrome status post percutaneous coronary intervention; history of coronary artery disease status post stenting 2. History of third-degree atrioventricular block status post pacemaker. 3. hypertension, slightly elevated 4. hyperlipidemia, statin intolerance 5. DM2, diet controlled well controlled as of A1c 6.2 last July 2016. 6. Chronic constipation. 7. History of retroperitoneal bleed (2010). PLAN: ICU monitoring post-PCI Management of cardiac issues as per Cardiology. ISS BG goal 140-180. Ppatient due for hemoglobin A1c check. Continue home laxative. DVT prophylaxis as per post-PCI orders. Full code. MTDD
[2017-03-14] MEDS ORDERED: ASPIRIN 81 MG ECTAB PO SCH (09:00)
--- NOTE | 2017-03-14 09:01 | ECHOCARDIOGRAM REPORT ---
*NOTICE TO RECEIVING REPUBLICAN AGENCY This information is strictly Confidential and protected under [place] law. [place] law prohibits you from making any further disclosure of this information unless further disclosure is expressly permitted by the written consent of the person to whom it pertains or is authorized by law. A general authorization for the release of medical or other information is not sufficient for this purpose. Hospital accepts no responsibility if the information is made available to any other person, INCLUDING THE PATIENT. Interpretation Summary * Name: ALEXANDER NICHOLSON Study Date: 03/14/2017 07:09 AM BP: 165/82 mmHg * Patient Location: [facility] HR: 80 * : 1935 (M/d/yyyy) Gender: Female Height: 60 in * Age: 81 yrs Ethnicity: CA Weight: 166 lb * Ordering Physician: Sal Phillip * Referring Physician: Self, Referred * Performed By: Liana Campbell RCS * * Reason For Study: AMI, S/P Cath * BSA: 1.7 m2 * The study was technically difficult. * Compared to prior study, changes are noted. * -- Conclusions -- * Ejection Fraction = 55-60%. * The base and mid lateral wall is hypokinetic. * There is mild mitral regurgitation. * Grade I diastolic dysfunction, (abnormal relaxation pattern). Procedure Details * A complete two-dimensional transthoracic echocardiogram was performed (2D, M-mode, Doppler and color flow Doppler). * Patient supine for imagining Left Ventricle * The left ventricle is normal in size. * There is mild concentric left ventricular hypertrophy. * Left ventricular systolic function is normal. * Ejection Fraction = 55-60%. * The base and mid lateral wall is hypokinetic. Right Ventricle * The right ventricle is normal size. * There is a pacemaker lead in the right ventricle. * The right ventricular systolic function is normal as assessed by tricuspid annular plane systolic excursion (TAPSE) (normal >1.5 cm). Atria * The left atrial size is normal. * Right atrial size is normal. * There is no evidence of atrial septal defect, but resolution does not allow assessment for a patent foramen ovale. Mitral Valve * The mitral valve is normal. * There is no mitral valve stenosis. * There is mild mitral regurgitation. Tricuspid Valve * The tricuspid valve is not well visualized. * There is no tricuspid stenosis. * Significant tricuspid regurgitation is absent. Aortic Valve * The aortic valve is not well visualized. * Aortic stenosis is absent. * There is no significant aortic regurgitation. Pulmonic Valve * The pulmonary valve is not well seen, but the Doppler examination is normal without significant regurgitation or stenosis. Great Vessels * The aortic root is normal size. Pericardium/Pleural * There is no pericardial effusion. Great Vessels * Normal inferior vena cava diameter and respiratory variation suggests normal central venous pressure. Left Ventricular Diastolic Function * Grade I diastolic dysfunction, (abnormal relaxation pattern). MMode 2D Measurements and Calculations IVSd 1.2 cm IVSs 1.6 cm LVIDd 4.7 cm LVIDs 2.8 cm LVPWd 1.2 cm LVPWs 1.8 cm IVS/LVPW 1.0 FS 39.0 % EDV(Teich) 100.0 ml ESV(Teich) 30.6 ml EF(Teich) 69.4 % EDV(cubed) 100.7 ml ESV(cubed) 22.9 ml EF(cubed) 77.3 % % IVS thick 32.6 % % LVPW thick 46.1 % LV mass(C)d 215.3 grams LV mass(C)dI 124.9 grams/m\S\2 LV mass(C)s 185.3 grams LV mass(C)sI 107.5 grams/m\S\2 CO(Teich) 5.9 l/min CI(Teich) 3.4 l/min/m\S\2 SV(Teich) 69.4 ml SI(Teich) 40.2 ml/m\S\2 CO(cubed) 6.6 l/min CI(cubed) 3.8 l/min/m\S\2 SV(cubed) 77.8 ml SI(cubed) 45.1 ml/m\S\2 Ao root diam 3.2 cm Ao root area 8.0 cm\S\2 ACS 1.9 cm LA dimension 3.7 cm LA/Ao 1.1 LVAd ap4 22.4 cm\S\2 LVLd ap4 7.0 cm EDV(MOD-sp4) 58.0 ml LVAs ap4 12.1 cm\S\2 LVLs ap4 6.3 cm ESV(MOD-sp4) 19.0 ml EF(MOD-sp4) 67.2 % LVAd ap2 26.7 cm\S\2 LVLd ap2 7.7 cm EDV(MOD-sp2) 77.0 ml LVAs ap2 14.0 cm\S\2 LVLs ap2 6.2 cm ESV(MOD-sp2) 27.0 ml EF(MOD-sp2) 64.9 % CO(MOD-sp4) 3.3 l/min CI(MOD-sp4) 1.9 l/min/m\S\2 SV(MOD-sp4) 39.0 ml SI(MOD-sp4) 22.6 ml/m\S\2 CO(MOD-sp2) 4.3 l/min CI(MOD-sp2) 2.5 l/min/m\S\2 SV(MOD-sp2) 50.0 ml SI(MOD-sp2) 29.0 ml/m\S\2 Doppler Measurements and Calculations MV E max krissy 80.2 cm/sec MV A max krissy 106.1 cm/sec MV E/A 0.76 MV P1/2t max krissy 100.2 cm/sec MV P1/2t 53.9 msec MVA(P1/2t) 4.1 cm\S\2 MV dec slope 544.3 cm/sec\S\2 MV dec time 0.15 sec Ao V2 max 138.2 cm/sec Ao max PG 7.6 mmHg Ao max PG (full) 3.2 mmHg LV V1 max PG 4.4 mmHg LV V1 max 104.9 cm/sec PA V2 max 103.5 cm/sec PA max PG 4.3 mmHg TR max krissy 155.9 cm/sec
[2017-03-14 09:37] LABS: CKMB/CK RATIO 11.9 (0-3.0); MAGNESIUM 1.8 mg/dl (1.8-2.4); PHOSPHORUS 3.3 mg/dl (2.5-4.9)
[2017-03-14] MEDS ORDERED: NURSING VERBAL MED ORDER ONE ×2 (09:45→13:30)
--- NOTE | 2017-03-14 10:21 | CARDIOLOGY CONSULTATION ---
DATE OF CONSULTATION: 03/14/2017 REFERRING PHYSICIAN: Dr. Goyo Norman. REASON FOR CONSULTATION: NSTEMI. HISTORY OF PRESENT ILLNESS: The patient is an 81-year-old female who presented to the Emergency Department with chest pain. The patient states she had 4 episodes of severe substernal chest pains in the days preceding her ER presentation. The pain typically lasted 15-30 minutes. She took an anxiety pill and sat down. The pain eventually resolved. She did not use any sublingual nitroglycerin. In the evening of her presentation, the patient awoke with severe chest pain radiating to her back. She became quite distressed and anxious. She came to the Emergency Department. She was treated with sublingual nitro, which initially relieved her discomfort; however, recurred promptly. Her ECG demonstrates diffuse ST depressions in the anterior lateral leads. I was contacted by the ER physician for further recommendations. Based on presentation and ECG findings, emergent cardiac catheterization was advised. Interventional cardiology, Dr. Phillip took the patient to the foundry laborer coreroom last night. The patient was found to have a 99% proximal circumflex stenosis. A drug-eluting stent was implanted without complication. Overnight, the patient has fared well. No recurrent chest pain this a.m. She has become nauseated after coughing up some phlegm. She received Zofran and is feeling somewhat better. There is a problem with a left anterior wrist hematoma related to her sheath insertion. TR band in place and a blood pressure cuff has been partially inflated for compression. Denies any shortness of breath. Denies any recent noncompliance with medications. No lightheadedness, dizziness, syncope or near syncope. Offers no other complaints at this time. REVIEW OF SYSTEMS: The pertinent positive noted above, a comprehensive 10-system review is otherwise negative. PAST MEDICAL HISTORY: 1. Atherosclerotic coronary artery disease, status post PCI to the LAD with a drug-eluting stent in the setting of an NSTEMI in August 2011. 2. Complete heart block, status post pacemaker implantation in August 2011. 3. Hypertension. 4. Dyslipidemia. 5. Diabetes type 2. 6. Colon polyps. 7. Moderately severe bilateral internal carotid artery disease. PAST SURGICAL HISTORY: 1. Cardiac catheterization with drug-eluting stent implantation in August 2011. 2. Pacemaker implantation in 2010. 3. Colonoscopy. 4. Laparoscopic tubal ligation. 5. Hysterectomy. 6. Cholecystectomy. 7. Hernia repair. SOCIAL HISTORY: She is . She is a nonsmoker. FAMILY HISTORY: Father with coronary artery disease. ALLERGIES: 1. ADHESIVE TAPE. 2. CHONDROITIN GLUCOSAMINE. 3. DOXYCYCLINE. 5. IODINE CONTRAST. 6. PENICILLIN. 7. SIMVASTATIN. 8. MILADY INHIBITORS. OUTPATIENT MEDICATIONS: 1. Nolan fish oil 1000 mg daily. 2. Atorvastatin 10 mg daily. 3. Glucotrol 2.5 mg daily. 4. Xanax 0.25 mg twice daily as needed. 5. Losartan 100 mg. 6. Toprol-XL 50 mg. 7. Aspirin 81 mg twice daily. 8. Omeprazole 20 mg daily. 9. Tramadol 50 mg every 6 hours as needed. 10. MiraLax as needed. EKG on admission is sinus rhythm with diffuse ST depressions in the anterior lateral leads. Repeat ECG performed this morning at 06:00 a.m. demonstrates sinus rhythm with inferior ST-T wave abnormality. LABORATORY DATA: Initial troponin 0.90. Sodium is 130, potassium 4.0, chloride 101, CO2 is 30, BUN is 20, and creatinine 0.74. White blood cell count 14.77, hemoglobin is 13.6, and platelet count is 247. INR is 1.0. Chest x-ray on admission: No significant findings. Telemetry demonstrates sinus rhythm, no dysrhythmia. Resting 2D transthoracic echo demonstrates preserved systolic function with lateral wall motion abnormality, no significant valvular disease. PHYSICAL EXAMINATION: VITAL SIGNS: Temperature is 36.9 degrees centigrade, pulse 84 beats per minute and regular, respiratory rate 20 breaths per minute, blood pressure 127/77 and SaO2 is 97% on room air. GENERAL: NAD, awake, alert and oriented x3. HEENT: Mucous membranes are moist. There is no scleral icterus. Conjunctivae are pink. NECK: Supple without JVD or HJR. No carotid bruit. HEART: Regular with a normal S1 and S2. No murmur, rub or gallop. LUNGS: Clear without rales, rhonchi or wheeze. ABDOMEN: Soft and nontender. No rebound or guarding. Normal bowel sounds. EXTREMITIES: Warm and dry without clubbing, cyanosis or edema. In the right upper extremity, anterior wrist hematoma noted. TR band in place. NEUROLOGIC: Demonstrates no focal deficit. FINAL IMPRESSION: 1. Non-ST elevation myocardial infarction with critical left circumflex culprit stenosis, status post drug-eluting stent implantation. 2. Lateral wall motion abnormality with preserved LV systolic function. 3. Dyslipidemia. 4. Hypertension -- controlled. 5. Diabetes type 2. 6. History of complete heart block status post pacemaker implantation. PLAN AND RECOMMENDATIONS: Plavix will be continued for a minimum of 1 year post-PCI uninterrupted. She will continue Toprol-XL, losartan, aspirin, and atorvastatin as previously ordered. I will not titrate her atorvastatin at this time due to history of prior intolerance. Management of TR band will be via interventional cardiology at this time. We will continue to monitor closely. Thank you for allowing me to take part in the care of your patient. JOSE LUIS
[2017-03-14] MEDS ORDERED: Integrelin infusion --> STOP ORDER ONE (12:00)
[2017-03-14] MEDS: POLYETHYLENE (MIRALAX) 17 GM PACK PO SCH (12:10)
--- NOTE | 2017-03-14 14:24 | Critical Care Progress Note ---
Critical Care Progress Note Date of Service March 14, 2017. ICU Day ICU Day Number: [address] Foster Subjective Patient complaining of nausea and vomiting this morning. She states that this is chronic but seems to be worse this morning. She denies any associated chest pain or back pain. She has chronic constipation and states that she does have some feelings of bloating this morning which is consistent with what she has had in the past. She is aware of no tachyarrhythmias. She has no shortness of breath and is oxygenating well on room air. She denies fever, chills, sweats, rigors. She has no other acute complaints at this time. Objective Vital Signs - as noted below Laboratory Data - as noted below Physical Exam: General - NAD Eyes - No icterus, gaze conjugate ENT - Mucosa moist, no lesions or candidiasis Neck - Supple, No JVD Lungs - No bronchospasm, rales, or rhonchi. Heart - Regular, rate controlled Abdomen - Soft, NT, ND, BS present Extremities - No edema, pedal pulses intact Neuro - A&OX3 Current SOFA Score SOFA Score Response (Comments) Value SaO2 / FIO2 67 - 141 3 Total 3 Assessment & Plan NSTEMI / CAD / ACS Status post percutaneous intervention by Dr. Phillip Drug-eluting stent placed to the proximal circumflex Patient developed postprocedure right radial hematoma Integrilin drip stopped secondary to hematoma Continue patient on aspirin and Plavix Patient was statin intolerance Continue losartan and metoprolol succinate Prior history CAD with PCI to the LAD with drug-eluting stent in August 2011 Further cardiac management by cardiology Appreciate cardiology comments by Dr. Hughes and Dr. Phillip Hemodynamically stable No further chest pain HISTORY OF COMPLETE HEART BLOCK IN THE PAST Pacemaker implantation August 2011 HISTORY OF RETROPERITONEAL BLEED No abdominal pain Hemodynamically stable Watch closely as patient received Integrilin DIABETES MELLITUS TYPE 2 Hemoglobin A1c 6.3 NovoLog sliding scale No home insulin CHRONIC CONSTIPATION Managed by Dr. Odette Wyman Continue bowel regimen Cautioned patient about bearing down GI Pantoprazole twice a day Patient reports that she has cut back to once daily at home Continue to monitor DVT PROPHYLAXIS No chemical prophylaxis secondary to Integrilin and radial hematoma TATIANA/SCDs CCT:0 minutes. Level for inpatient consult Thank you for including us in the care of this patient. Please refer to Dr. Foster's addendum for further recommendations I have personally evaluated and examined this patient. I agree with assessment and plan of Shawn Garcia PA-C. Integrilin infusion, Hx of spontaneous retroperitoneal bleed. ICU observation. Consults & Procedures Consultants: Cardiology - Dr. Phillip for cardiac catheterization. Dr. Hughes for management Procedures: Cardiac catheterization with placement of drug-eluting stent to proximal circumflex Data Medications: Current Inpatient Medications Medications (Trade) Dose Ordered Sig/Lucio Route Start Time Stop Time Status Last Admin Dose Admin Insulin Aspart (novoLOG ASPART) SLIDING SCALE If C... ACHS SC 03/14/17 06:45 04/13/17 06:59 Glucose (Glucose 40% Gel) 15-30 GRAMS 15 GRAMS... UD PRN PO 03/14/17 06:00 04/13/17 05:59 Glucose (Glucose Chew Tab) 4-8 Tablets 4 Tabl... UD PRN PO 03/14/17 06:00 04/13/17 05:59 Dextrose (Dextrose 50% 50ML Syringe) 25-50ML OF 50% DW IV FOR... UD PRN IV 03/14/17 06:00 04/13/17 05:59 Glucagon (Glucagon Inj) 1 mg UD PRN SQ 03/14/17 06:00 04/13/17 05:59 Alprazolam (Xanax Tab) 0.25 mg BID PRN PO 03/14/17 06:00 04/13/17 05:59 Docusate Sodium (coLACE CAP) 100 mg QAM PO 03/14/17 09:00 04/13/17 08:59 Docusate Sodium (coLACE CAP) 200 mg HS PO 03/14/17 21:00 04/13/17 20:59 Losartan Potassium (coZAAR TAB) 100 mg DAILY PO 03/14/17 09:00 04/13/17 08:59 03/14/17 11:57 100 MG Metoprolol Succinate (Toprol Xl Tab) 50 mg DAILY PO 03/14/17 09:00 04/13/17 08:59 03/14/17 08:07 50 MG Tramadol HCl (Ultram Tab) 50 mg Q6H PRN PO 03/14/17 06:00 04/13/17 05:59 Pantoprazole Sodium (Protonix Tab) 40 mg BID PO 03/14/17 09:00 04/13/17 08:59 03/14/17 08:07 40 MG Atropine Sulfate (Atropine Sulfate 0.1MG/Ml Inj) 0.5 mg ONE PRN IV 03/14/17 06:00 04/13/17 05:59 Ondansetron HCl (Zofran Inj) 4 mg Q6H PRN IV 03/14/17 06:00 04/13/17 05:59 03/14/17 11:55 4 MG Aspirin (Ecotrin Tab) 81 mg QAM PO 03/14/17 09:00 04/13/17 08:59 Clopidogrel Bisulfate (plAVix TAB) 75 mg QAM PO 03/14/17 09:00 04/13/17 08:59 Acetaminophen (Tylenol Tab) 650 mg Q4H PRN PO 03/14/17 06:00 04/13/17 05:59 Morphine Sulfate 2 mg 2 mg Q5M PRN IV 03/14/17 06:00 03/28/17 05:59 Lorazepam/Syringe (Ativan Inj/ Syringe) 0.25 ml @ 1 mls/min Q6H PRN IV 03/14/17 06:00 04/13/17 05:59 Lorazepam (Ativan Inj) 0.5 mg Q6H PRN IV 03/14/17 06:15 04/13/17 06:14 Polyethylene 17 gm 17 gm QAM PO 03/14/17 09:00 04/13/17 08:59 03/14/17 12:10 17 GM Sodium Chloride (Nss 1000ml) 1,000 ml @ 60 mls/hr [id number] ONCE IV 03/14/17 06:45 03/14/17 23:24 03/14/17 06:45 60 MLS/HR I & O: 24-Hour Column 03/14/17 07:59 Intake Total 46 ml Output Total 400 ml Balance -354 ml Vital Signs: Date Time Temp Pulse Resp B/P Pulse Ox O2 Delivery O2 Flow Rate FiO2 03/14/17 11:30 36.6 72 20 135/55 98 Nasal Cannula 2.0 03/14/17 11:30 83 97 03/14/17 11:30 Nasal Cannula 2.0 03/14/17 11:00 77 135/55 97 03/14/17 10:30 71 99 03/14/17 10:15 75 98 03/14/17 10:01 78 127/59 98 03/14/17 10:01 78 127/59 98 03/14/17 10:00 80 95 03/14/17 10:00 80 95 03/14/17 09:45 72 98 03/14/17 09:30 76 123/58 97 03/14/17 09:15 82 98 03/14/17 09:00 82 125/62 99 03/14/17 08:45 82 134/66 97 03/14/17 08:30 87 126/65 96 03/14/17 08:16 97 134/ 94 03/14/17 08:15 95 91 03/14/17 08:01 92 166/86 97 03/14/17 08:00 94 94 03/14/17 08:00 Nasal Cannula 03/14/17 07:46 88 141/73 98 03/14/17 07:45 85 96 03/14/17 07:31 90 102/69 98 03/14/17 07:30 86 98 03/14/17 07:30 Nasal Cannula 2.0 03/14/17 07:30 36.8 88 20 102/69 98 Nasal Cannula 2.0 03/14/17 07:15 82 134/59 03/14/17 07:00 87 146/59 97 03/14/17 06:35 84 20 127/77 97 Nasal Cannula 2.0 03/14/17 06:20 88 22 145/69 98 Nasal Cannula 2.0 03/14/17 06:13 89 20 150/70 99 Nasal Cannula 2.0 03/14/17 05:40 80 16 165/82 96 Room Air 03/14/17 05:25 85 16 171/87 96 Room Air 03/14/17 04:00 157/68 03/14/17 03:52 92 18 100 Nasal Cannula 2.0 03/14/17 03:45 144/68 03/14/17 03:42 84 23 145/64 95 Room Air 03/14/17 03:42 145/64 03/14/17 03:37 84 22 97 03/14/17 03:32 79 20 98 03/14/17 03:22 63 25 97 03/14/17 03:20 106/53 03/14/17 03:12 66 21 97 03/14/17 03:07 68 17 98 03/14/17 03:00 118/69 03/14/17 02:59 92/75 03/14/17 02:57 78 22 95 03/14/17 02:49 03/14/17 02:48 93 20 154/82 96 Room Air 03/14/17 02:47 98 26 96 03/14/17 02:37 93 20 96 03/14/17 02:30 154/102 03/14/17 02:28 97 03/14/17 02:27 89 19 96 03/14/17 02:23 Room Air 03/14/17 02:20 171/86 03/14/17 02:17 96 Room Air 03/14/17 02:17 97 Room Air 03/14/17 02:17 36.9 93 24 171/86 96 Room Air Laboratory Results: Last 24 Hours Test 03/14/17 01:50 03/14/17 04:40 03/14/17 04:54 03/14/17 05:10 White Blood Count 8.39 K/uL Red Blood Count 4.61 M/uL Hemoglobin 14.6 g/dL Hematocrit 43.6 % Mean Corpuscular Volume 94.6 fL Mean Corpuscular Hemoglobin 31.7 pg Mean Corpuscular Hemoglobin Concent 33.5 g/dl Platelet Count 270 K/uL Mean Platelet Volume 10.3 fL Neutrophils (%) (Auto) 59.5 % Lymphocytes (%) (Auto) 27.2 % Monocytes (%) (Auto) 11.0 % Eosinophils (%) (Auto) 1.7 % Basophils (%) (Auto) 0.4 % Neutrophils # (Auto) 5.00 K/uL Lymphocytes # (Auto) 2.28 K/uL Monocytes # (Auto) 0.92 K/uL Eosinophils # (Auto) 0.14 K/uL Basophils # (Auto) 0.03 K/uL RDW Standard Deviation 43.9 fL RDW Coefficient of Variation 12.7 % Immature Granulocyte % (Auto) 0.2 % Immature Granulocyte # (Auto) 0.02 K/uL Prothrombin Time 10.7 SECONDS Prothromb Time International Ratio 1.0 Activated Partial Thromboplast Time 24.6 SECONDS Partial Thromboplastin Ratio 0.9 Sodium Level 140 mmol/L Potassium Level 4.4 mmol/L Chloride Level 101 mmol/L Carbon Dioxide Level 32 mmol/L Anion Gap 7.0 mmol/L Blood Urea Nitrogen 21 mg/dl Creatinine 0.89 mg/dl Est Creatinine Clear Calc Drug Dose 45.0 ml/min Estimated GFR () 70.4 Estimated GFR (Non- 60.8 BUN/Creatinine Ratio 23.9 Random Glucose 125 mg/dl Calcium Level 9.7 mg/dl Magnesium Level 2.2 mg/dl Total Bilirubin 0.3 mg/dl Aspartate Amino Transf (AST/SGOT) 19 U/L Alanine Aminotransferase (ALT/SGPT) 26 U/L Alkaline Phosphatase 81 U/L Total Creatine Kinase 113 U/L Creatine Kinase MB 2.6 ng/ml Creatine Kinase MB Ratio 2.3 Troponin I 0.090 ng/ml Pro-B-Type Natriuretic Peptide 716 pg/ml Total Protein 7.3 gm/dl Albumin 3.7 gm/dl Globulin 3.6 gm/dl Albumin/Globulin Ratio 1.0 Kaolin Activated Coagulation Time 193 SECONDS 239 SECONDS 497 SECONDS Test 03/14/17 06:15 03/14/17 06:35 03/14/17 09:02 03/14/17 10:36 White Blood Count 14.77 K/uL Red Blood Count 4.43 M/uL Hemoglobin 13.6 g/dL Hematocrit 41.7 % Mean Corpuscular Volume 94.1 fL Mean Corpuscular Hemoglobin 30.7 pg Mean Corpuscular Hemoglobin Concent 32.6 g/dl Platelet Count 247 K/uL Mean Platelet Volume 10.3 fL Neutrophils (%) (Auto) 93.0 % Lymphocytes (%) (Auto) 4.7 % Monocytes (%) (Auto) 1.7 % Eosinophils (%) (Auto) 0.1 % Basophils (%) (Auto) 0.2 % Neutrophils # (Auto) 13.72 K/uL Lymphocytes # (Auto) 0.70 K/uL Monocytes # (Auto) 0.25 K/uL Eosinophils # (Auto) 0.02 K/uL Basophils # (Auto) 0.03 K/uL RDW Standard Deviation 43.7 fL RDW Coefficient of Variation 12.6 % Immature Granulocyte % (Auto) 0.3 % Immature Granulocyte # (Auto) 0.05 K/uL Sodium Level 138 mmol/L Potassium Level 4.0 mmol/L Chloride Level 101 mmol/L Carbon Dioxide Level 30 mmol/L Anion Gap 7.0 mmol/L Blood Urea Nitrogen 20 mg/dl Creatinine 0.74 mg/dl Est Creatinine Clear Calc Drug Dose 54.1 ml/min Estimated GFR () 88.1 Estimated GFR (Non- 76.0 BUN/Creatinine Ratio 26.6 Random Glucose 184 mg/dl Estimated Average Glucose 134 mg/dl Hemoglobin A1c 6.3 % Calcium Level 9.1 mg/dl Bedside Glucose 185 mg/dl 173 mg/dl Phosphorus Level 3.3 mg/dl Magnesium Level 1.8 mg/dl Total Creatine Kinase 435 U/L Creatine Kinase MB 51.9 ng/ml Creatine Kinase MB Ratio 11.9 Troponin I 13.300 ng/ml
--- NOTE | 2017-03-14 18:40 | Critical Care Consultation ---
Critical Care Consultation Date of Consultation: March 14, 2017. Attending Physician: Adiel Alvarez M.D. Reason for Consultation: Post PCI with drug-eluting stent to proximal circumflex History of Present Illness Attending: Dr. Foster This is a 81-year-old female was admitted for chest pain for the past 2-3 days and found to have 99% occlusion of the proximal circumflex artery. Intervention was performed by Dr. Phillip who place a drug-eluting stent to the proximal circumflex artery. The patient was transferred to intensive care unit postoperatively with Integrilin running. She developed a right radial hematoma and Integrilin.. The patient continues with ecchymosis at the right radial site but pain seems to be more improved. She does have pulse distal to the hematoma and no cyanosis of that hand. The patient also denies any significant edema that hand. The patient states that her chest pain is resolved. The patient does have history of prior CAD and prior stenting of the LAD. She also had complete heart block and had a pacemaker placed by Dr. Monteiro in 2010. She does report statin intolerance but cannot clearly calmly what that adverse reaction was. She has no shortness of breath. She is doing well on room air. The patient does report chronic constipation and states that sometimes she gets lightheaded when she is bearing down trying to have a bowel movement or pass gas. She does follow with Dr. Pino and states that he has been working with her in this regard. She did have a nuclear med scan which ruled out gastroparesis in 2010. She does complain of nausea and vomiting this morning with small amounts of food and states that this is happened in the past. She has no other recent illness. She denies history of thromboembolic disease. She has no recent recent travel. Past Medical/Surgical History Medical Problems: ACS (acute coronary syndrome) Benign hypertension Carpal tunnel syndrome Coronary artery disease Diabetes mellitus type 2 Diverticular disease of colon Hyperlipidemia Surgical Problems: H/O percutaneous transluminal coronary angioplasty Stented coronary artery LAD in 2010 Cardiac pacemaker placed in 2010 History of cholecystectomy History of total hysterectomy Family History Cancer Diabetes mellitus Gallbladder disease Heart disease Hypertension Social History Smoking Status: Never Smoker Smokeless Tobacco Use: No Alcohol Use: none Drug Use: none Marital Status: Housing Status: lives with family Occupation Status: unemployed Allergies Coded Allergies: MILADY Inhibitors (Verified Allergy, Unknown, ., 03/14/17) Adhesives (Verified Allergy, Unknown, ., 03/14/17) Doxycycline (Verified Allergy, Unknown, ., 03/14/17) Ethylene Diamine Tetraacetic Acid (Verified Allergy, Unknown, ., 03/14/17) Iodinated Diagnostic Agents (Verified Allergy, Unknown, ., 03/14/17) Methylparaben (Verified Allergy, Unknown, ., 03/14/17) Nystatin (Verified Allergy, Unknown, 03/14/17) Penicillins (Verified Allergy, Unknown, 03/14/17) Simvastatin (Verified Allergy, Unknown, ., 03/14/17) Tetracyclines (Verified Allergy, Unknown, 03/14/17) Triamcinolone (Verified Allergy, Unknown, ., 03/14/17) Home Medications Scheduled Aspirin (Aspirin Ec), 81 MG PO DAILY Bioflavonoid Products (Vitamin C), 1 TAB PO DAILY Cholecalciferol (Vitamin D 400), 400 UNIT PO DAILY Docusate Sodium (Colace), 100 MG PO QAM Docusate Sodium (Colace), 200 MG PO HS Fish Oil (Herrick-3), 1 CAP PO DAILY Ketoconazole (Ketoconazole), 1 APPLN TOP BID Losartan Potassium (Cozaar), 100 MG PO DAILY Metoprolol Succ (Toprol Xl) (Toprol-Xl), 50 MG PO DAILY Omeprazole (Prilosec), 40 MG PO BID Polyethylene Glycol 3350 (Miralax), 8.5 GM PO DAILY Tramadol (Ultram), 50 MG PO Q6HR PRN Triamcinolone Acetonide (Topic (Triderm), 1 APPLN TOP BID Vitamin E (Vitamin E 100 Iu), 100 INTER.UNIT PO DAILY Scheduled PRN Alprazolam (Xanax), 0.25 MG PO BID PRN for Anxiety Current Inpatient Medications Current Inpatient Medications Medications (Trade) Dose Ordered Sig/Lucio Route Start Time Stop Time Status Last Admin Dose Admin Insulin Aspart (novoLOG ASPART) SLIDING SCALE If C... ACHS SC 03/14/17 06:45 04/13/17 06:59 Glucose (Glucose 40% Gel) 15-30 GRAMS 15 GRAMS... UD PRN PO 03/14/17 06:00 04/13/17 05:59 Glucose (Glucose Chew Tab) 4-8 Tablets 4 Tabl... UD PRN PO 03/14/17 06:00 04/13/17 05:59 Dextrose (Dextrose 50% 50ML Syringe) 25-50ML OF 50% DW IV FOR... UD PRN IV 03/14/17 06:00 04/13/17 05:59 Glucagon (Glucagon Inj) 1 mg UD PRN SQ 03/14/17 06:00 04/13/17 05:59 Alprazolam (Xanax Tab) 0.25 mg BID PRN PO 03/14/17 06:00 04/13/17 05:59 Docusate Sodium (coLACE CAP) 100 mg QAM PO 03/14/17 09:00 04/13/17 08:59 03/14/17 14:14 100 MG Docusate Sodium (coLACE CAP) 200 mg HS PO 03/14/17 21:00 04/13/17 20:59 Losartan Potassium (coZAAR TAB) 100 mg DAILY PO 03/14/17 09:00 04/13/17 08:59 03/14/17 11:57 100 MG Metoprolol Succinate (Toprol Xl Tab) 50 mg DAILY PO 03/14/17 09:00 04/13/17 08:59 03/14/17 08:07 50 MG Tramadol HCl (Ultram Tab) 50 mg Q6H PRN PO 03/14/17 06:00 04/13/17 05:59 Pantoprazole Sodium (Protonix Tab) 40 mg BID PO 03/14/17 09:00 04/13/17 08:59 03/14/17 08:07 40 MG Atropine Sulfate (Atropine Sulfate 0.1MG/Ml Inj) 0.5 mg ONE PRN IV 03/14/17 06:00 04/13/17 05:59 Aspirin (Ecotrin Tab) 81 mg QAM PO 03/14/17 09:00 04/13/17 08:59 03/14/17 14:14 81 MG Clopidogrel Bisulfate (plAVix TAB) 75 mg QAM PO 03/14/17 09:00 04/13/17 08:59 03/14/17 14:14 75 MG Acetaminophen (Tylenol Tab) 650 mg Q4H PRN PO 03/14/17 06:00 04/13/17 05:59 Morphine Sulfate 2 mg 2 mg Q5M PRN IV 03/14/17 06:00 03/28/17 05:59 Lorazepam/Syringe (Ativan Inj/ Syringe) 0.25 ml @ 1 mls/min Q6H PRN IV 03/14/17 06:00 04/13/17 05:59 Lorazepam (Ativan Inj) 0.5 mg Q6H PRN IV 03/14/17 06:15 04/13/17 06:14 Polyethylene 17 gm 17 gm QAM PO 03/14/17 09:00 04/13/17 08:59 03/14/17 12:10 17 GM Sodium Chloride (Nss 1000ml) 1,000 ml @ 60 mls/hr [id number] ONCE IV 03/14/17 06:45 03/14/17 23:24 03/14/17 06:45 60 MLS/HR Ondansetron HCl (Zofran Inj) 4 mg Q4H PRN IV 03/14/17 16:00 04/13/17 15:59 Review of Systems A total of 12 systems was reviewed and is negative other than as listed above in the HPI Physical Exam Date Time Temp Pulse Resp B/P Pulse Ox O2 Delivery O2 Flow Rate FiO2 03/14/17 15:30 Nasal Cannula 2.0 03/14/17 15:30 36.6 65 20 132/56 95 Room Air 03/14/17 14:00 86 153/82 95 03/14/17 14:00 36.6 84 20 153/82 95 Room Air 03/14/17 13:21 75 94 03/14/17 13:16 83 148/64 92 03/14/17 13:03 74 126/67 03/14/17 13:01 82 135/65 93 03/14/17 13:00 76 03/14/17 12:00 87 157/78 97 03/14/17 11:30 36.6 72 20 135/55 98 Nasal Cannula 2.0 03/14/17 11:30 83 97 03/14/17 11:30 Nasal Cannula 2.0 03/14/17 11:00 77 135/55 97 03/14/17 10:30 71 99 03/14/17 10:15 75 98 03/14/17 10:01 78 127/59 98 03/14/17 10:01 78 127/59 98 03/14/17 10:00 80 95 03/14/17 10:00 80 95 03/14/17 09:45 72 98 03/14/17 09:30 76 123/58 97 03/14/17 09:15 82 98 03/14/17 09:00 82 125/62 99 03/14/17 08:45 82 134/66 97 03/14/17 08:30 87 126/65 96 03/14/17 08:16 97 134/ 94 03/14/17 08:15 95 91 03/14/17 08:01 92 166/86 97 03/14/17 08:00 94 94 03/14/17 08:00 Nasal Cannula 03/14/17 07:46 88 141/73 98 03/14/17 07:45 85 96 03/14/17 07:31 90 102/69 98 03/14/17 07:30 86 98 03/14/17 07:30 Nasal Cannula 2.0 03/14/17 07:30 36.8 88 20 102/69 98 Nasal Cannula 2.0 03/14/17 07:15 82 134/59 03/14/17 07:00 87 146/59 97 03/14/17 06:35 84 20 127/77 97 Nasal Cannula 2.0 03/14/17 06:20 88 22 145/69 98 Nasal Cannula 2.0 03/14/17 06:13 89 20 150/70 99 Nasal Cannula 2.0 03/14/17 05:40 80 16 165/82 96 Room Air 03/14/17 05:25 85 16 171/87 96 Room Air 03/14/17 04:00 157/68 03/14/17 03:52 92 18 100 Nasal Cannula 2.0 03/14/17 03:45 144/68 03/14/17 03:42 84 23 145/64 95 Room Air 03/14/17 03:42 145/64 03/14/17 03:37 84 22 97 03/14/17 03:32 79 20 98 03/14/17 03:22 63 25 97 03/14/17 03:20 106/53 03/14/17 03:12 66 21 97 03/14/17 03:07 68 17 98 03/14/17 03:00 118/69 03/14/17 02:59 92/75 03/14/17 02:57 78 22 95 03/14/17 02:49 03/14/17 02:48 93 20 154/82 96 Room Air 03/14/17 02:47 98 26 96 03/14/17 02:37 93 20 96 03/14/17 02:30 154/102 03/14/17 02:28 97 03/14/17 02:27 89 19 96 03/14/17 02:23 Room Air 03/14/17 02:20 171/86 03/14/17 02:17 96 Room Air 03/14/17 02:17 97 Room Air 03/14/17 02:17 36.9 93 24 171/86 96 Room Air GENERAL : No acute distress EYES: No icterus, gaze conjugate NOSE: No evidence of epistaxis MOUTH: No lesions or candidiasis NECK: Supple LUNGS: CTA B/L, no wheezes, rales or rhonchi HEART: Regular, rate controlled ABDOMEN: Soft, NT, ND, BS Present. No abdominal distention. No guarding. No flank or back pain EXTREMITIES: No LE edema, pedal pulses intact. TR band place a right radial artery with evidence of hematoma and ecchymosis. Pulses palpable distal to the TR band NEURO: A&OX3 Laboratory Results Last 24 Hours Test 03/14/17 01:50 03/14/17 04:40 03/14/17 04:54 03/14/17 05:10 White Blood Count 8.39 K/uL Red Blood Count 4.61 M/uL Hemoglobin 14.6 g/dL Hematocrit 43.6 % Mean Corpuscular Volume 94.6 fL Mean Corpuscular Hemoglobin 31.7 pg Mean Corpuscular Hemoglobin Concent 33.5 g/dl Platelet Count 270 K/uL Mean Platelet Volume 10.3 fL Neutrophils (%) (Auto) 59.5 % Lymphocytes (%) (Auto) 27.2 % Monocytes (%) (Auto) 11.0 % Eosinophils (%) (Auto) 1.7 % Basophils (%) (Auto) 0.4 % Neutrophils # (Auto) 5.00 K/uL Lymphocytes # (Auto) 2.28 K/uL Monocytes # (Auto) 0.92 K/uL Eosinophils # (Auto) 0.14 K/uL Basophils # (Auto) 0.03 K/uL RDW Standard Deviation 43.9 fL RDW Coefficient of Variation 12.7 % Immature Granulocyte % (Auto) 0.2 % Immature Granulocyte # (Auto) 0.02 K/uL Prothrombin Time 10.7 SECONDS Prothromb Time International Ratio 1.0 Activated Partial Thromboplast Time 24.6 SECONDS Partial Thromboplastin Ratio 0.9 Sodium Level 140 mmol/L Potassium Level 4.4 mmol/L Chloride Level 101 mmol/L Carbon Dioxide Level 32 mmol/L Anion Gap 7.0 mmol/L Blood Urea Nitrogen 21 mg/dl Creatinine 0.89 mg/dl Est Creatinine Clear Calc Drug Dose 45.0 ml/min Estimated GFR () 70.4 Estimated GFR (Non- 60.8 BUN/Creatinine Ratio 23.9 Random Glucose 125 mg/dl Calcium Level 9.7 mg/dl Magnesium Level 2.2 mg/dl Total Bilirubin 0.3 mg/dl Aspartate Amino Transf (AST/SGOT) 19 U/L Alanine Aminotransferase (ALT/SGPT) 26 U/L Alkaline Phosphatase 81 U/L Total Creatine Kinase 113 U/L Creatine Kinase MB 2.6 ng/ml Creatine Kinase MB Ratio 2.3 Troponin I 0.090 ng/ml Pro-B-Type Natriuretic Peptide 716 pg/ml Total Protein 7.3 gm/dl Albumin 3.7 gm/dl Globulin 3.6 gm/dl Albumin/Globulin Ratio 1.0 Kaolin Activated Coagulation Time 193 SECONDS 239 SECONDS 497 SECONDS Test 03/14/17 06:15 03/14/17 06:35 03/14/17 09:02 03/14/17 10:36 White Blood Count 14.77 K/uL Red Blood Count 4.43 M/uL Hemoglobin 13.6 g/dL Hematocrit 41.7 % Mean Corpuscular Volume 94.1 fL Mean Corpuscular Hemoglobin 30.7 pg Mean Corpuscular Hemoglobin Concent 32.6 g/dl Platelet Count 247 K/uL Mean Platelet Volume 10.3 fL Neutrophils (%) (Auto) 93.0 % Lymphocytes (%) (Auto) 4.7 % Monocytes (%) (Auto) 1.7 % Eosinophils (%) (Auto) 0.1 % Basophils (%) (Auto) 0.2 % Neutrophils # (Auto) 13.72 K/uL Lymphocytes # (Auto) 0.70 K/uL Monocytes # (Auto) 0.25 K/uL Eosinophils # (Auto) 0.02 K/uL Basophils # (Auto) 0.03 K/uL RDW Standard Deviation 43.7 fL RDW Coefficient of Variation 12.6 % Immature Granulocyte % (Auto) 0.3 % Immature Granulocyte # (Auto) 0.05 K/uL Sodium Level 138 mmol/L Potassium Level 4.0 mmol/L Chloride Level 101 mmol/L Carbon Dioxide Level 30 mmol/L Anion Gap 7.0 mmol/L Blood Urea Nitrogen 20 mg/dl Creatinine 0.74 mg/dl Est Creatinine Clear Calc Drug Dose 54.1 ml/min Estimated GFR () 88.1 Estimated GFR (Non- 76.0 BUN/Creatinine Ratio 26.6 Random Glucose 184 mg/dl Estimated Average Glucose 134 mg/dl Hemoglobin A1c 6.3 % Calcium Level 9.1 mg/dl Bedside Glucose 185 mg/dl 173 mg/dl Phosphorus Level 3.3 mg/dl Magnesium Level 1.8 mg/dl Total Creatine Kinase 435 U/L Creatine Kinase MB 51.9 ng/ml Creatine Kinase MB Ratio 11.9 Troponin I 13.300 ng/ml Test 03/14/17 15:25 Bedside Glucose 141 mg/dl Diagnostic Results CHEST ONE VIEW PORTABLE HISTORY: Central chest pain. COMPARISON: Chest 06/21/2014. FINDINGS: Calcified granuloma within the right lung apex. The heart is stable in size. Left-sided dual-chamber pacemaker. No focal lung consolidations to suggest pneumonia. No evidence for pulmonary edema. No pleural effusions. No pneumothorax. The lungs remain hyperexpanded. IMPRESSION: No significant change compared to the prior study. No acute process. Electronically signed by: Mane Garrido M.D. 03/14/2017 7:40 AM Assessment & Plan NSTEMI / CAD / ACS Status post percutaneous intervention by Dr. Phillip Drug-eluting stent placed to the proximal circumflex Troponin peaked at 13.3 post procedure Patient developed postprocedure right radial hematoma Integrilin drip stopped secondary to hematoma Continue patient on aspirin and Plavix Patient was statin intolerance Continue losartan and metoprolol succinate Prior history CAD with PCI to the LAD with drug-eluting stent in August 2011 Further cardiac management by cardiology Appreciate cardiology comments by Dr. Hughes and Dr. Phillip Hemodynamically stable No further chest pain HISTORY OF COMPLETE HEART BLOCK IN THE PAST Pacemaker implantation August 2011 HISTORY OF RETROPERITONEAL BLEED No abdominal pain Hemodynamically stable Watch closely as patient received Integrilin ELECTROLYTES Sodium 138 Potassium 4 Calcium 9.1 Magnesium 1.8 Phosphorus 3.3 Follow serial labs ID Elevated white count but no fever and hemodynamically stable Most likely leukemoid reaction Continue to follow No indication for antibiotics at this time RENAL BUN 20 Creatinine 0.74 Patient diet advanced Follow serial labs DIABETES MELLITUS TYPE 2 Hemoglobin A1c 6.3 NovoLog sliding scale No home insulin CHRONIC CONSTIPATION Managed by Dr. Odette Wyman Continue bowel regimen Cautioned patient about bearing down GI Pantoprazole twice a day Patient reports that she has cut back to once daily at home Continue to monitor DVT PROPHYLAXIS No chemical prophylaxis secondary to Integrilin and radial hematoma TATIANA/SCDs CCT:0 minutes. Level for inpatient consult Thank you for including us in the care of this patient. Please refer to Dr. Foster's addendum for further recommendations I have personally evaluated and examined this patient. I agree with assessment and plan of Shawn Garcia PA-C. Integrilin infusion, Hx of spontaneous retroperitoneal bleed. ICU observation.
[2017-03-15] VITALS (19 sets, daily range): BP systolic 78–159; BP diastolic 29–88; PULSE 58–91; TEMP 36.1–37; O2SAT 91–100
[2017-03-15 04:58] LABS: BASO % 0.1 %; BASO ABS # 0.01 K/uL (0-0.2); COMPLETE YES; EOS % 0.5 %; HEMATOCRIT 38.4 % (37-47); IG% 0.2 %; LYMPH % 14.1 %; LYMPH ABS # 1.47 K/uL (1.2-3.4); MEAN CELL VOLUME 96.5 fL (80-100); MEAN CORPUSCULAR HEMOGLOBIN 30.7 pg (25-34); MEAN CORPUSCULAR HGB CONC 31.8 g/dl (32-36); MEAN PLATELET VOLUME 10.2 fL (7.4-10.4); NEUT % 74.1 %; PLATELET COUNT 212 K/uL (130-400); RED BLOOD COUNT 3.98 M/uL (4.2-5.4); WHITE BLOOD COUNT 10.44 K/uL (4.8-10.8)
[2017-03-15 05:21] LABS: CALCIUM 8.9 mg/dl (8.5-10.1); CREATININE 0.87 mg/dl (0.60-1.20); MAGNESIUM 2.1 mg/dl (1.8-2.4); POTASSIUM 3.9 mmol/L (3.5-5.1)
[2017-03-15 05:43] LABS: CKMB/CK RATIO 11.6 (0-3.0); PHOSPHORUS 3.5 mg/dl (2.5-4.9)
[2017-03-15] MEDS: INSULIN ASPART 100 UNITS/ML 3 ML PEN SC SCH ×4 (06:45→21:00)
[2017-03-15] MEDS: LOSARTAN POTASSIUM 50 MG TAB PO SCH ×2 (07:17→08:26)
[2017-03-15] MEDS: METOPROLOL SUCC 50MG EXT REL TAB PO SCH ×2 (07:18→08:25)
--- NOTE | 2017-03-15 07:50 | Progress Note ---
Internal Med Progress Note Date of Service: March 15, 2017. Provider Documentation: SUBJECTIVE: Patient is seen and examined at bedside. She states feeling well. Denies any chest pain, SOB, dizziness, Palpitations, abd pain. Offers no other complaints. OBJECTIVE: Vital Signs-as noted below Physical Exam: General Appearance:Moderately built and nourished, no apparent distress Head: normocephalic, Atraumatic Eyes: normal inspection, EOMI, PERRL Neck: supple, Trachea midline Respiratory/Chest: Normal breath sounds, CTA Cardiovascular: S1, S2, No murmur Abdomen/GI:Soft, Non tender, Bowel sounds present Extremities/Musculoskelatal:normal inspection, Trace edema Neurologic/Psych:grossly no focal neurological deficits Skin: normal color, warm Lab data as noted below. ASSESSMENT & PLAN: NSTEMI H/O CAD with ANGELY to LAD in Aug 2011 S/P PCI by Dr. Phillip ANGELY to proximal circumflex Developed postprocedure right radial hematoma, Integrilin drip discontinued Continue aspirin, Plavix, BB, losartan No statin secondary to intolerance Appreciate cardiology help Currently denies chest pain H/O COMPLETE HEART BLOCK S/P Pacemaker implantation August 2011 H/O RETROPERITONEAL BLEED Stable Monitor Hb DIABETES II HbA1c: 6.3 ISS, Accu checks CHRONIC CONSTIPATION Continue bowel regimen HLP: H/O Statin intolerance On fish oil at home DVT PX: Lovenox SQ Vital Signs: Date Time Temp Pulse Resp B/P Pulse Ox O2 Delivery O2 Flow Rate FiO2 03/15/17 10:00 62 18 100/43 92 Room Air 03/15/17 08:00 78 16 118/65 93 Room Air 03/15/17 08:00 Room Air 03/15/17 07:23 36.4 74 18 122/66 97 Room Air 03/15/17 06:00 36.1 58 20 78/29 98 03/15/17 05:01 73 18 128/88 100 03/15/17 04:06 86 159/68 95 03/15/17 04:00 99 Nasal Cannula 2.0 03/15/17 03:00 60 95/55 100 03/15/17 02:06 36.2 03/15/17 02:00 59 19 94/42 99 03/15/17 02:00 59 94/42 99 03/15/17 01:00 60 20 95/39 99 03/15/17 00:00 99 Nasal Cannula 2.0 03/15/17 00:00 61 18 97/42 100 03/14/17 23:40 99 Nasal Cannula 03/14/17 23:00 61 102/43 98 03/14/17 22:45 62 99 03/14/17 22:30 67 99 03/14/17 22:15 80 98 03/14/17 21:00 73 18 135/61 100 03/14/17 20:00 93 Room Air 03/14/17 20:00 36.6 03/14/17 20:00 68 18 133/59 90 03/14/17 19:00 72 16 148/67 96 03/14/17 15:30 Nasal Cannula 2.0 03/14/17 15:30 36.6 65 20 132/56 95 Room Air 03/14/17 14:00 86 153/82 95 03/14/17 14:00 36.6 84 20 153/82 95 Room Air 03/14/17 13:21 75 94 03/14/17 13:16 83 148/64 92 03/14/17 13:03 74 126/67 03/14/17 13:01 82 135/65 93 03/14/17 13:00 76 03/14/17 12:00 87 157/78 97 03/14/17 11:30 36.6 72 20 135/55 98 Nasal Cannula 2.0 03/14/17 11:30 83 97 03/14/17 11:30 Nasal Cannula 2.0 03/14/17 11:00 77 135/55 97 Lab Results: Results Past 24 Hours Test 03/14/17 15:25 03/14/17 20:21 03/14/17 20:49 03/15/17 04:40 Range/Units Bedside Glucose 141 123 70-90 mg/dl Troponin I 25.200 17.400 0-0.045 ng/ml White Blood Count 10.44 4.8-10.8 K/uL Red Blood Count 3.98 4.2-5.4 M/uL Hemoglobin 12.2 12.0-16.0 g/dL Hematocrit 38.4 37-47 % Mean Corpuscular Volume 96.5 80-100 fL Mean Corpuscular Hemoglobin 30.7 25-34 pg Mean Corpuscular Hemoglobin Concent 31.8 32-36 g/dl Platelet Count 212 130-400 K/uL Mean Platelet Volume 10.2 7.4-10.4 fL Neutrophils (%) (Auto) 74.1 % Lymphocytes (%) (Auto) 14.1 % Monocytes (%) (Auto) 11.0 % Eosinophils (%) (Auto) 0.5 % Basophils (%) (Auto) 0.1 % Neutrophils # (Auto) 7.74 1.4-6.5 K/uL Lymphocytes # (Auto) 1.47 1.2-3.4 K/uL Monocytes # (Auto) 1.15 0.11-0.59 K/uL Eosinophils # (Auto) 0.05 0-0.5 K/uL Basophils # (Auto) 0.01 0-0.2 K/uL RDW Standard Deviation 45.9 36.4-46.3 fL RDW Coefficient of Variation 13.1 11.5-14.5 % Immature Granulocyte % (Auto) 0.2 % Immature Granulocyte # (Auto) 0.02 0.00-0.02 K/uL Sodium Level 142 136-145 mmol/L Potassium Level 3.9 3.5-5.1 mmol/L Chloride Level 105 98-107 mmol/L Carbon Dioxide Level 32 21-32 mmol/L Anion Gap 5.0 3-11 mmol/L Blood Urea Nitrogen 20 7-18 mg/dl Creatinine 0.87 0.60-1.20 mg/dl Est Creatinine Clear Calc Drug Dose 44.8 ml/min Estimated GFR () 72.4 Estimated GFR (Non- 62.5 BUN/Creatinine Ratio 23.0 10-20 Random Glucose 103 70-99 mg/dl Calcium Level 8.9 8.5-10.1 mg/dl Phosphorus Level 3.5 2.5-4.9 mg/dl Magnesium Level 2.1 1.8-2.4 mg/dl Total Creatine Kinase 421 26-192 U/L Creatine Kinase MB 48.7 0.5-3.6 ng/ml Creatine Kinase MB Ratio 11.6 0-3.0 Triglycerides Level 180 0-150 mg/dl Cholesterol Level 226 0-200 mg/dl HDL Cholesterol 45 mg/dl LDL Cholesterol, Calculated 145 mg/dl VLDL Cholesterol, Calculated 36 mg/dl Cholesterol/HDL Ratio 5.0 Test 03/15/17 06:36 Range/Units Bedside Glucose 93 70-90 mg/dl
[2017-03-15] MEDS: ASPIRIN 81 MG ECTAB PO SCH (08:24)
[2017-03-15] MEDS: DOCUSATE SODIUM 100 MG CAP PO SCH ×2 (08:24→21:14)
[2017-03-15] MEDS: CLOPIDOGREL BISULFATE 75 MG TAB PO SCH (08:24)
[2017-03-15] MEDS: PANTOprazole SOD 40 MG TAB PO SCH ×2 (08:24→21:14)
[2017-03-15] MEDS: POLYETHYLENE (MIRALAX) 17 GM PACK PO SCH (08:25)
[2017-03-15] MEDS ORDERED: GEMFIBROZIL 600 MG TAB PO SCH (09:00)
[2017-03-15] MEDS ORDERED: ENOXAPARIN 40 MG/0.4 ML SYR SQ SCH (14:00)
--- NOTE | 2017-03-15 16:54 | Cardiology Follow-Up ---
Subjective General Date of Service: March 15, 2017. Pt evaluation today including: conversation w/ patient, physical exam, chart review, lab review, review of studies, review of inpatient medication list History of Present Illness The patient is a 81 year old female seen in follow up. No chest pain or SOB. Tolerating diet and medications. Offers no complaints. Allergies Coded Allergies: MILADY Inhibitors (Verified Allergy, Unknown, ., 03/14/17) Adhesives (Verified Allergy, Unknown, ., 03/14/17) Doxycycline (Verified Allergy, Unknown, ., 03/14/17) Ethylene Diamine Tetraacetic Acid (Verified Allergy, Unknown, ., 03/14/17) Iodinated Diagnostic Agents (Verified Allergy, Unknown, ., 03/14/17) Methylparaben (Verified Allergy, Unknown, ., 03/14/17) Nystatin (Verified Allergy, Unknown, 03/14/17) Penicillins (Verified Allergy, Unknown, 03/14/17) Simvastatin (Verified Allergy, Unknown, ., 03/14/17) Tetracyclines (Verified Allergy, Unknown, 03/14/17) Triamcinolone (Verified Allergy, Unknown, ., 03/14/17) Social History Smoking Status: Never Smoker Hx Tobacco Use In Past Year?: No Hx Alcohol Use - Type And Amou: No Hx Substance Use - Type And Am: No Problem List Medical Problems: (1) NSTEMI (non-ST elevated myocardial infarction) Status: Acute Review of Systems Respiratory: No cough, No dyspnea at rest, No dyspnea on exertion, No hemoptysis, No shortness of breath, No sputum, No wheezing Cardiac: No PND, No chest pain, No edema, No orthopnea, No palpitations Physical Exam Vital Signs Last Vital Signs Documentation Date Time Temp Pulse Resp B/P Pulse Ox O2 Delivery O2 Flow Rate FiO2 03/15/17 15:49 36.7 70 18 96/54 94 Room Air 03/15/17 04:00 2.0 Physical Exam Constitutional: General Apperance: well-nourished Level of Distress: NAD Head: normocephalic Neck: supple, trachea midline Lungs: Respiratory effort: no dyspnea Auscultation: breath sounds normal, no wheezing, no rales/crackles, no rhonchi Cardiovascular: Heart Auscultation: RRR, normal S1, normal S2, no murmurs, no rubs, no gallops Peripheral Pulses: Radial Pulse: normal on the right, pertinent finding (RUE wrist and forearm hematoma) Abdomen: Bowel Sounds: normal Inspection & Palpation: soft, non-distended, no tenderness, guarding & rebound Extremities: no cyanosis, no edema, no clubbing, no ulcers Neurologic: Gait & Station: pertinent finding (No focal deficit) Cranial Nerves: grossly intact Assessment and Plan Assessment and Plan FINAL IMPRESSION: 1. Non-ST elevation myocardial infarction with critical left circumflex culprit stenosis, status post drug-eluting stent implantation 03/14/2017. 2. Lateral wall motion abnormality with preserved LV systolic function. 3. RUE wrist and forearm hematoma 4. Hypertension -- controlled. 5. Dyslipidemia 6. History of complete heart block status post pacemaker implantation. 7. DM-2 PLAN AND RECOMMENDATIONS: Continue plavix for a minimum of 1 year post-PCI uninterrupted. Restart atorvastatin today. Continue Toprol-XL, losartan, aspirin, and as previously ordered. Possible discharge in 24 - 48 hours. Laboratory Results Last 24 Hours Test 03/14/17 20:21 03/14/17 20:49 03/15/17 04:40 03/15/17 06:36 Troponin I 25.200 ng/ml 17.400 ng/ml Bedside Glucose 123 mg/dl 93 mg/dl White Blood Count 10.44 K/uL Red Blood Count 3.98 M/uL Hemoglobin 12.2 g/dL Hematocrit 38.4 % Mean Corpuscular Volume 96.5 fL Mean Corpuscular Hemoglobin 30.7 pg Mean Corpuscular Hemoglobin Concent 31.8 g/dl Platelet Count 212 K/uL Mean Platelet Volume 10.2 fL Neutrophils (%) (Auto) 74.1 % Lymphocytes (%) (Auto) 14.1 % Monocytes (%) (Auto) 11.0 % Eosinophils (%) (Auto) 0.5 % Basophils (%) (Auto) 0.1 % Neutrophils # (Auto) 7.74 K/uL Lymphocytes # (Auto) 1.47 K/uL Monocytes # (Auto) 1.15 K/uL Eosinophils # (Auto) 0.05 K/uL Basophils # (Auto) 0.01 K/uL RDW Standard Deviation 45.9 fL RDW Coefficient of Variation 13.1 % Immature Granulocyte % (Auto) 0.2 % Immature Granulocyte # (Auto) 0.02 K/uL Sodium Level 142 mmol/L Potassium Level 3.9 mmol/L Chloride Level 105 mmol/L Carbon Dioxide Level 32 mmol/L Anion Gap 5.0 mmol/L Blood Urea Nitrogen 20 mg/dl Creatinine 0.87 mg/dl Est Creatinine Clear Calc Drug Dose 44.8 ml/min Estimated GFR () 72.4 Estimated GFR (Non- 62.5 BUN/Creatinine Ratio 23.0 Random Glucose 103 mg/dl Calcium Level 8.9 mg/dl Phosphorus Level 3.5 mg/dl Magnesium Level 2.1 mg/dl Total Creatine Kinase 421 U/L Creatine Kinase MB 48.7 ng/ml Creatine Kinase MB Ratio 11.6 Triglycerides Level 180 mg/dl Cholesterol Level 226 mg/dl HDL Cholesterol 45 mg/dl LDL Cholesterol, Calculated 145 mg/dl VLDL Cholesterol, Calculated 36 mg/dl Cholesterol/HDL Ratio 5.0 Test 03/15/17 11:22 03/15/17 16:09 Bedside Glucose 125 mg/dl 123 mg/dl
[2017-03-15] MEDS ORDERED: ATORVASTATIN 10 MG TAB PO SCH (21:00)
[2017-03-16 03:15] VITALS: BP 154/81; PULSE 81; TEMP 36.4; O2SAT 91
[2017-03-16 05:51] LABS: BASO % 0.3 %; BASO ABS # 0.02 K/uL (0-0.2); COMPLETE YES; EOS % 1.9 %; HEMATOCRIT 39.4 % (37-47); IG% 0.3 %; LYMPH % 20.7 %; LYMPH ABS # 1.55 K/uL (1.2-3.4); MEAN CELL VOLUME 96.8 fL (80-100); MEAN CORPUSCULAR HEMOGLOBIN 31.4 pg (25-34); MEAN CORPUSCULAR HGB CONC 32.5 g/dl (32-36); MEAN PLATELET VOLUME 10.5 fL (7.4-10.4); MONO % 11.2 %; NEUT % 65.6 %; PLATELET COUNT 211 K/uL (130-400); RED BLOOD COUNT 4.07 M/uL (4.2-5.4)
[2017-03-16 06:29] LABS: BUN/CREATININE RATIO 24.9 (10-20); CALCIUM 9.5 mg/dl (8.5-10.1); CREATININE 0.87 mg/dl (0.60-1.20); MAGNESIUM 2.1 mg/dl (1.8-2.4)
[2017-03-16] MEDS: INSULIN ASPART 100 UNITS/ML 3 ML PEN SC SCH (07:00)
[2017-03-16] MEDS: DOCUSATE SODIUM 100 MG CAP PO SCH (07:07)
[2017-03-16] MEDS: CLOPIDOGREL BISULFATE 75 MG TAB PO SCH (07:07)
[2017-03-16] MEDS: PANTOprazole SOD 40 MG TAB PO SCH (07:07)
[2017-03-16] MEDS: METOPROLOL SUCC 50MG EXT REL TAB PO SCH (07:07)
[2017-03-16] MEDS: ASPIRIN 81 MG ECTAB PO SCH (07:07)
[2017-03-16] MEDS: LOSARTAN POTASSIUM 50 MG TAB PO SCH (07:08)
[2017-03-16] MEDS: POLYETHYLENE (MIRALAX) 17 GM PACK PO SCH (07:08)
--- NOTE | 2017-03-16 08:29 | Progress Note ---
Internal Med Progress Note Date of Service: March 16, 2017. Provider Documentation: SUBJECTIVE: Patient is seen and examined at bedside. Doing well. Denies any chest pain, SOB , dizziness, Palpitations, abd pain. Family at bedside. OBJECTIVE: Vital Signs-as noted below Physical Exam: General Appearance:Moderately built and nourished, no apparent distress Head: normocephalic, Atraumatic Eyes: normal inspection, EOMI, PERRL Neck: supple, Trachea midline Respiratory/Chest: Normal breath sounds, CTA Cardiovascular: S1, S2, No murmur Abdomen/GI:Soft, Non tender, Bowel sounds present Extremities/Musculoskelatal:normal inspection, Trace edema Neurologic/Psych:grossly no focal neurological deficits Skin: normal color, warm Lab data as noted below. ASSESSMENT & PLAN: NSTEMI H/O CAD with ANGELY to LAD in Aug 2011 S/P PCI by Dr. Phillip ANGELY to proximal left circumflex Developed postprocedure right radial hematoma, Integrilin drip discontinued Continue aspirin, Plavix, BB, losartan Lipitor started at reduced dose secondary to h/o simvastatin intolerance Appreciate cardiology help Currently denies chest pain H/O COMPLETE HEART BLOCK S/P Pacemaker implantation August 2011 H/O RETROPERITONEAL BLEED Stable Hb Monitor Hb DIABETES II HbA1c: 6.3 ISS, Accu checks CHRONIC CONSTIPATION Continue bowel regimen HLP: H/O Simvastatin intolerance On fish oil at home Lipitor started DVT PX: Lovenox SQ DISPOSITION: Discussed with son, denies need for home health services. Follow up with on 03/22/17 at 10:45 Am [place] Follow up with Dr.Rebecca Estes, Cardiology on 03/22/17 at 2:45 pm [facility] Vital Signs: Date Time Temp Pulse Resp B/P Pulse Ox O2 Delivery O2 Flow Rate FiO2 03/16/17 04:00 Room Air 03/16/17 03:15 36.4 81 18 154/81 91 Room Air 03/15/17 23:59 Room Air 03/15/17 23:45 36.7 72 18 126/57 91 Room Air 03/15/17 20:00 94 Room Air 03/15/17 19:42 36.6 69 18 117/53 92 Room Air 03/15/17 16:00 94 Room Air 03/15/17 15:49 36.7 70 18 96/54 94 Room Air 03/15/17 12:00 Room Air 03/15/17 10:42 36.4 62 18 92 03/15/17 10:00 62 18 100/43 92 Room Air Lab Results: Results Past 24 Hours Test 03/15/17 11:22 03/15/17 16:09 03/15/17 20:15 03/16/17 05:34 Range/Units Bedside Glucose 125 123 93 70-90 mg/dl White Blood Count 7.50 4.8-10.8 K/uL Red Blood Count 4.07 4.2-5.4 M/uL Hemoglobin 12.8 12.0-16.0 g/dL Hematocrit 39.4 37-47 % Mean Corpuscular Volume 96.8 80-100 fL Mean Corpuscular Hemoglobin 31.4 25-34 pg Mean Corpuscular Hemoglobin Concent 32.5 32-36 g/dl Platelet Count 211 130-400 K/uL Mean Platelet Volume 10.5 7.4-10.4 fL Neutrophils (%) (Auto) 65.6 % Lymphocytes (%) (Auto) 20.7 % Monocytes (%) (Auto) 11.2 % Eosinophils (%) (Auto) 1.9 % Basophils (%) (Auto) 0.3 % Neutrophils # (Auto) 4.93 1.4-6.5 K/uL Lymphocytes # (Auto) 1.55 1.2-3.4 K/uL Monocytes # (Auto) 0.84 0.11-0.59 K/uL Eosinophils # (Auto) 0.14 0-0.5 K/uL Basophils # (Auto) 0.02 0-0.2 K/uL RDW Standard Deviation 46.6 36.4-46.3 fL RDW Coefficient of Variation 13.1 11.5-14.5 % Immature Granulocyte % (Auto) 0.3 % Immature Granulocyte # (Auto) 0.02 0.00-0.02 K/uL Sodium Level 141 136-145 mmol/L Potassium Level 4.0 3.5-5.1 mmol/L Chloride Level 104 98-107 mmol/L Carbon Dioxide Level 33 21-32 mmol/L Anion Gap 4.0 3-11 mmol/L Blood Urea Nitrogen 22 7-18 mg/dl Creatinine 0.87 0.60-1.20 mg/dl Est Creatinine Clear Calc Drug Dose 44.8 ml/min Estimated GFR () 72.4 Estimated GFR (Non- 62.5 BUN/Creatinine Ratio 24.9 10-20 Random Glucose 116 70-99 mg/dl Calcium Level 9.5 8.5-10.1 mg/dl Magnesium Level 2.1 1.8-2.4 mg/dl Test 03/16/17 06:30 Range/Units Bedside Glucose 109 70-90 mg/dl
[2017-03-16 08:47] VITALS: BP_SYST 155; PULSE 71; TEMP 36.6; O2SAT 95
[2017-03-16] MEDS ORDERED: PLV75 PO (08:56)
[2017-03-16] MEDS ORDERED: LPT10 PO (08:56)
--- NOTE | 2017-03-16 09:02 | Discharge Summary ---
Discharge Summary Date of Service March 16, 2017. Discharge Summary Admission Date: March 14, 2017 at 05:47 Discharge Date: March 16, 2017 Discharge Disposition: Home Principal Diagnosis: NSTEMI S/P PCI Procedures: ANGELY to proximal left circumflex Consultations: Cardiology Pending Studies/Follow-Up: Follow up with on 03/22/17 at 10:45 Am [place] Follow up with Dr.Rebecca Estes, Cardiology on 03/22/17 at 2:45 pm [facility] Medication Reconciliation New Medications: Atorvastatin (Atorvastatin Calcium) 10 Mg Tab 10 MG PO HS for 30 Days, #30 TAB 2 Refills Clopidogrel Bisulfate (Clopidogrel) 75 Mg Tab 75 MG PO QAM for 30 Days, #30 TAB 2 Refills Continued Medications: Alprazolam (Xanax) 0.25 Mg Tab 0.25 MG PO BID PRN for Anxiety, TAB Aspirin (Aspirin Ec) 81 Mg Tab 81 MG PO DAILY Bioflavonoid Products (Vitamin C) 1 Chw Chw 1 TAB PO DAILY Cholecalciferol (Vitamin D 400) 400 Unit Chw 400 UNIT PO DAILY Docusate Sodium (Colace) 100 Mg Cap 100 MG PO QAM Docusate Sodium (Colace) 100 Mg Cap 200 MG PO HS, 2 Refills Fish Oil ([place]-3) 1 Ea Cap 1 CAP PO DAILY, CAP Ketoconazole (Ketoconazole) 45 Appln/15 Gm Cr 1 APPLN TOP BID apply to affected area Losartan Potassium (Cozaar) 100 Mg Tab 100 MG PO DAILY, TAB Metoprolol Succ (Toprol Xl) (Toprol-Xl) 50 Mg Tabcr 50 MG PO DAILY, #30 TAB Omeprazole (Prilosec) 40 Mg Cap 40 MG PO BID, CAP Polyethylene Glycol 3350 (Miralax) 1 Pow Pow 8.5 GM PO DAILY, #255 GM Tramadol (Ultram) 50 Mg Tab 50 MG PO Q6HR PRN, 0 Refills PRN PAIN Triamcinolone Acetonide (Topic (Triderm) 0.1 % Cre 1 APPLN TOP BID apply to affected area Vitamin E (Vitamin E 100 Iu) 100 Unit Cap 100 INTER.UNIT PO DAILY, CAP Admission Information HPI (per Admitting provider): CHIEF COMPLAINT: Chest pain. HISTORY OF PRESENT ILLNESS: Medical history significant for CAD status post stenting, 3 AVB sp PPM<, hypertension, hyperlipidemia, statin intolerance, DM2, diet controlled, PVD as per records, anxiety disorder, chronic constipation. Recent confinement 2010 for non-ST elevation myocardial infarction sp LAD stent placement. PX also found to have third degree AVblock sp PPM. Retroperitoneal bleed complication during confinement. In the last month intermittent central chest pain symptoms during exertion, relieved by rest.rtion. Last night, the patient was reading when she had substernal discomfort, achy, going to both arms. No shortness of breath, no diaphoresis. Patient compliant with home medications. Given nitroglycerin, aspirin en route to the ER. Chest pain resolved upon arrival at the ER. At the Emergency Room, initial EKG showed ST depressions. Heart alert called because of recurrent chest pain symptoms. Patient brought to the cardiac pharmaceutical laboratory technician. Occluded Left circumflex artery stented. Physical Exam (per Admitting): VITAL SIGNS: Blood pressure was noted to be 145/69, pulse rate 88, RR 22, temperature 36.9, sats 98 on 2 liters. GENERAL: Noted to be slightly anxious, obese, no respiratory distress. SKIN: Normal color. HEENT: [place] palpebral conjunctivae, dry mucosa. NECK: Short neck. LUNGS: Decreased breath sounds. HEART: Regular rate and rhythm. ABDOMEN: Some distention, nontender. EXTREMITIES: No edema, no tenderness. NEUROLOGIC: No gross focality except for chronic lip asymmetry. LABORATORY DATA: Hemoglobin 14.6, hematocrit 33.6, white cells 8.39, platelets 270. Sodium 140, potassium 4.4, chloride 101, CO2 32, BUN 10, creatinine 0.8, glucose 125. Troponin was noted to be 0.09. Hospital Course NSTEMI H/O CAD with ANGELY to LAD in Aug 2011 S/P PCI by Dr. Phillip ANGELY to proximal left circumflex Developed postprocedure right radial hematoma, Integrilin drip discontinued Continue aspirin, Plavix, BB, losartan Lipitor started at reduced dose secondary to h/o simvastatin intolerance Appreciate cardiology help Currently denies chest pain H/O COMPLETE HEART BLOCK S/P Pacemaker implantation August 2011 H/O RETROPERITONEAL BLEED Stable Hb Monitor Hb DIABETES II HbA1c: 6.3 ISS, Accu checks CHRONIC CONSTIPATION Continue bowel regimen HLP: H/O Simvastatin intolerance On fish oil at home Lipitor started DVT PX: Lovenox SQ DISPOSITION: Discussed with son, denies need for home health services. Follow up with on 03/22/17 at 10:45 Am [place] Follow up with Dr.Rebecca Estes, Cardiology on 03/22/17 at 2:45 pm [facility] Total time spent on discharge = 36 minutes This includes examination of the patient, discharge planning, medication reconciliation, and communication with other providers. Discharge Instructions Discharge Instructions Date of Service March 16, 2017. Admission Reason for Admission: ACS Discharge Discharge Diagnosis / Problem: NSTEMI S/P PCI Discharge Goals Goal(s): Decrease discomfort, Improve function Activity Recommendations Activity Limitations: per Instructions/Follow-up section Lifting Limitations: until after follow-up appointment (No lifting weights) Exercise/Sports Limitations: gradually increase as tolerated . Instructions / Follow-Up Instructions / Follow-Up Follow up with on 03/22/17 at 10:45 Am [facility] Follow up with Dr.Rebecca Estes, Cardiology on 03/22/17 at 2:45 pm [facility] Home Care: * Take your medications exactly as directed. Don't skip doses. * Remember that recovery after a heart attack takes time. Plan to rest for at lease 4-8 weeks while you recover. Then return to normal activity when your doctor says it's okay. * Ask your doctor about joining a heart rehabilitation program. * Tell your doctor if you are feeling depressed. Feelings of sadness are common after a heart attack, but it is important that you speak to someone if you are feeling overwhelmed by these feelings. * If you are having chest pain, call 911 for an ambulance. Do NOT drive yourself to the hospital. * Ask your family members to learn CPR. * Learn to take your own blood pressure and pulse. Keep a record of your results. Ask your doctor when you should seek emergency medical attention. He or she will tell you which blood pressure reading is dangerous. Lifestyle Changes: * Maintain a healthy weight. Get help to lose any extra pounds. * Cut back on salt. * Limit canned, dried, packaged, and fast foods. * Don't add salt to your food. * Season foods with herbs instead of salt when you cook. * Break the smoking habit. Enroll in a stop-smoking program to improve your chances of success. * Limit fatty foods. * Check your lipid levels regularly. (Your doctor can show you how to do this.) * Build up your activity according to your doctor's recommendation. * Ask your doctor when it's okay to resume sexual activity. * Tell your doctor about any erectile dysfunction (ED) medication you are taking. Some ED medications are not safe if you take certain heart medications. * Try to manage stress. Follow Up: It is important for you to keep your follow up appointments with your medical provider. Current Hospital Diet Patient's current hospital diet: AHA Diet (Heart Healthy), Diabetes Type 2 Diet Discharge Diet Recommended Diet: AHA Diet (Heart Healthy), Diabetes Type 2 Diet Procedures Procedures Performed: ANGELY to left Circumflex Pending Studies Studies pending at discharge: no Laboratory Results Hemoglobin A1c Test 03/14/17 06:15 Range/Units Estimated Average Glucose 134 mg/dl Hemoglobin A1c 6.3 H 4.5-5.6 % Lipid Panel Test 03/15/17 04:40 Range/Units Triglycerides Level 180 H 0-150 mg/dl Cholesterol Level 226 H 0-200 mg/dl HDL Cholesterol 45 mg/dl Cholesterol/HDL Ratio 5.0 LDL Cholesterol, Calculated 145 mg/dl Medical Emergencies . Who to Call and When: Medical Emergencies: If at any time you feel your situation is an emergency, please call 911 immediately. Call 911 immediately or go to your nearest Emergency Room if you experience any of the following: Warning Signs and Symptoms of a Heart Attack * Chest pain that is not relieved by medication * Shortness of breath . Non-Emergent Contact Non-Emergency issues call your: Primary Care Provider, Movie [employer] Usher Call Non-Emergent contact if: you have a fever, your pain is not controlled, your pain is worsening, your pain is unusual for you, wound has increased drainage, wound has increased pain, you have any medication questions . . "Provider Documentation" section prepared by Kaiden Ambriz. . AMI Core Measures Reason no ASA as I/P: Treatment provided - N/A Reason no ASA at D/C: Treatment provided - N/A Reason no statin as I/P: Treatment provided - N/A Reason no statin at D/C: Treatment provided - N/A VTE Core Measure Inpt VTE Proph given/why not?: Enoxaparin (Lovenox)SQ
[2017-03-16 09:35] VITALS: BP 155/81; PULSE 71; TEMP 36.6; O2SAT 95
--- NOTE | 2017-03-16 10:00 | Cardiology Follow-Up ---
Subjective General Date of Service: March 16, 2017. Pt evaluation today including: conversation w/ patient, conversation w/ family , physical exam, chart review, lab review, review of studies, conversation w/ contaminated land consultant, review of inpatient medication list History of Present Illness The patient is a 81 year old female seen in follow up. No chest pain or SOB. Tolerating diet and medications. Son present at bedside. Offers no complaints. Allergies Coded Allergies: MILADY Inhibitors (Verified Allergy, Unknown, ., 03/14/17) Adhesives (Verified Allergy, Unknown, ., 03/14/17) Doxycycline (Verified Allergy, Unknown, ., 03/14/17) Ethylene Diamine Tetraacetic Acid (Verified Allergy, Unknown, ., 03/14/17) Iodinated Diagnostic Agents (Verified Allergy, Unknown, ., 03/14/17) Methylparaben (Verified Allergy, Unknown, ., 03/14/17) Nystatin (Verified Allergy, Unknown, 03/14/17) Penicillins (Verified Allergy, Unknown, 03/14/17) Simvastatin (Verified Allergy, Unknown, ., 03/14/17) Tetracyclines (Verified Allergy, Unknown, 03/14/17) Triamcinolone (Verified Allergy, Unknown, ., 03/14/17) Social History Smoking Status: Never Smoker Hx Tobacco Use In Past Year?: No Hx Alcohol Use - Type And Amou: No Hx Substance Use - Type And Am: No Problem List Medical Problems: (1) NSTEMI (non-ST elevated myocardial infarction) Status: Acute Review of Systems Respiratory: No cough, No dyspnea at rest, No hemoptysis, No shortness of breath, No sputum, No wheezing Cardiac: No PND, No chest pain, No edema, No orthopnea, No palpitations Physical Exam Vital Signs Last Vital Signs Documentation Date Time Temp Pulse Resp B/P Pulse Ox O2 Delivery O2 Flow Rate FiO2 03/16/17 09:35 36.6 71 18 95 Room Air 03/16/17 08:47 155/ 03/15/17 04:00 2.0 Physical Exam Constitutional: General Apperance: well-nourished Level of Distress: NAD Head: normocephalic Neck: supple, trachea midline Lungs: Respiratory effort: no dyspnea Auscultation: breath sounds normal, no wheezing, no rales/crackles, no rhonchi Cardiovascular: Heart Auscultation: RRR, normal S1, normal S2, no murmurs, no rubs, no gallops Peripheral Pulses: Radial Pulse: normal on the right, pertinent finding (RUE wrist and forearm hematoma) Abdomen: Bowel Sounds: normal Inspection & Palpation: soft, non-distended, no tenderness, guarding & rebound Extremities: no cyanosis, no edema, no clubbing, no ulcers Neurologic: Gait & Station: pertinent finding (No focal deficit) Cranial Nerves: grossly intact Assessment and Plan Assessment and Plan FINAL IMPRESSION: 1. Non-ST elevation myocardial infarction with critical left circumflex culprit stenosis, status post drug-eluting stent implantation 03/14/2017. 2. Lateral wall motion abnormality with preserved LV systolic function. 3. RUE wrist and forearm hematoma - stable / resolving 4. Hypertension -- controlled. 5. Dyslipidemia 6. History of complete heart block status post pacemaker implantation. 7. DM-2 PLAN AND RECOMMENDATIONS: Continue plavix for a minimum of 1 year post-PCI uninterrupted. Continue low dose atorvastatin with h/o statin intolerance. Consider addition of PCSK9 inhibitor as outpatient. Continue Toprol-XL, losartan, aspirin, and as previously ordered. Outpatient cardiology follow up in 1-2 weeks. Laboratory Results Last 24 Hours Test 03/15/17 11:22 03/15/17 16:09 03/15/17 20:15 03/16/17 05:34 Bedside Glucose 125 mg/dl 123 mg/dl 93 mg/dl White Blood Count 7.50 K/uL Red Blood Count 4.07 M/uL Hemoglobin 12.8 g/dL Hematocrit 39.4 % Mean Corpuscular Volume 96.8 fL Mean Corpuscular Hemoglobin 31.4 pg Mean Corpuscular Hemoglobin Concent 32.5 g/dl Platelet Count 211 K/uL Mean Platelet Volume 10.5 fL Neutrophils (%) (Auto) 65.6 % Lymphocytes (%) (Auto) 20.7 % Monocytes (%) (Auto) 11.2 % Eosinophils (%) (Auto) 1.9 % Basophils (%) (Auto) 0.3 % Neutrophils # (Auto) 4.93 K/uL Lymphocytes # (Auto) 1.55 K/uL Monocytes # (Auto) 0.84 K/uL Eosinophils # (Auto) 0.14 K/uL Basophils # (Auto) 0.02 K/uL RDW Standard Deviation 46.6 fL RDW Coefficient of Variation 13.1 % Immature Granulocyte % (Auto) 0.3 % Immature Granulocyte # (Auto) 0.02 K/uL Sodium Level 141 mmol/L Potassium Level 4.0 mmol/L Chloride Level 104 mmol/L Carbon Dioxide Level 33 mmol/L Anion Gap 4.0 mmol/L Blood Urea Nitrogen 22 mg/dl Creatinine 0.87 mg/dl Est Creatinine Clear Calc Drug Dose 44.8 ml/min Estimated GFR () 72.4 Estimated GFR (Non- 62.5 BUN/Creatinine Ratio 24.9 Random Glucose 116 mg/dl Calcium Level 9.5 mg/dl Magnesium Level 2.1 mg/dl Test 03/16/17 06:30 Bedside Glucose 109 mg/dl
== END 2017-03-16 10:10 | disposition home or self-care (01) | DRG 247 ==
LOC: ENRESERVDT → ENRESERVTM → EDBD 02:17 → C.EDA 02:18 → C.MSICU 05:47 → C.2E 03-15 11:21
PROVIDERS: ADMIT Internal Medicine; ATTEND Internal Medicine
PROC: B2111ZZ Fluoroscopy of Multiple Coronary Arteries using Low Osmolar Contrast (ICD-10-PCS; principal; 2017-03-14 03:56)
PROC: 027034Z Dilation of Coronary Artery, One Artery with Drug-eluting Intraluminal Device, Percutaneous Approach (ICD-10-PCS; principal; 2017-03-14 03:56)
PROC: 4A023N7 Measurement of Cardiac Sampling and Pressure, Left Heart, Percutaneous Approach (ICD-10-PCS; principal; 2017-03-14 03:56)
PROC: B2151ZZ Fluoroscopy of Left Heart using Low Osmolar Contrast (ICD-10-PCS; principal; 2017-03-14 03:56)
DX: I21.4 Non-ST elevation (NSTEMI) myocardial infarction (principal); L76.32 Postprocedural hematoma of skin and subcutaneous tissue following other procedure; I44.2 Atrioventricular block, complete; Y92.239 Unspecified place in hospital as the place of occurrence of the external cause; G56.00 Carpal tunnel syndrome, unspecified upper limb; E78.5 Hyperlipidemia, unspecified; I24.9 Acute ischemic heart disease, unspecified; I51.89 Other ill-defined heart diseases; I65.23 Occlusion and stenosis of bilateral carotid arteries; I73.9 Peripheral vascular disease, unspecified; F41.9 Anxiety disorder, unspecified; K59.09 Other constipation; R07.89 Other chest pain; E11.9 Type 2 diabetes mellitus without complications; I10 Essential (primary) hypertension; I25.10 Atherosclerotic heart disease of native coronary artery without angina pectoris; Z95.0 Presence of cardiac pacemaker; Z95.5 Presence of coronary angioplasty implant and graft; Z88.8 Allergy status to other drugs, medicaments and biological substances; Z87.891 Personal history of nicotine dependence; Z87.19 Personal history of other diseases of the digestive system; Z79.84 Long term (current) use of oral hypoglycemic drugs; Z79.899 Other long term (current) drug therapy; Z79.82 Long term (current) use of aspirin; Z79.891 Long term (current) use of opiate analgesic

== ENCOUNTER 2020-10-29 08:46 | Inpatient (IN) ==
[2020-10-29] MEDS ORDERED: IBUPROFEN 600 MG TAB PO STA (09:05)
--- NOTE | 2020-10-29 09:19 | Emergency Department Note ---
History of Present Illness General Chief complaint: Back Injury/Pain Source: patient, family (Son who we talked to on the phone), RN notes reviewed and old records reviewed Mode of arrival: EMS Limitations: no limitations History of Present Illness Maximum Pain Intensity: 0 This patient comes in with back pain. She lives at home although she does have significant dementia. She seen yesterday by Dr. Ms. Allison and was diagnosed with a lumbar compression fracture. Apparently the back pain is been going on for a while. Is difficult to get a reliable history otherwise she says she has not been eating or drinking much. She denies any chest pain or shortness of. She said it hurt in her back or her leg when I move her right leg there is no visible swelling she has no focal numbness or weakness. Denies urinary symptoms. No fever. She lives alone. Home Medications Medication Instructions Recorded Confirmed Type tramadol [Ultram] 50 mg PO Q6H PRN #30 tab 10/28/20 10/29/20 Rx Allergies Allergy/AdvReac Type Severity Reaction Status Date / Time MILADY Inhibitors Allergy Unknown . Verified 10/29/20 09:59 adhesive Allergy Unknown . Verified 10/29/20 09:59 doxycycline Allergy Unknown . Verified 10/29/20 09:59 Iodinated Contrast Media Allergy Unknown . Verified 10/29/20 09:59 methylparaben Allergy Unknown . Verified 10/29/20 09:59 nystatin Allergy Unknown Verified 10/29/20 09:59 Penicillins Allergy Unknown Verified 10/29/20 09:59 simvastatin Allergy Unknown . Verified 10/29/20 09:59 Tetracyclines Allergy Unknown Verified 10/29/20 09:59 triamcinolone Allergy Unknown . Verified 10/29/20 09:59 Ethylene Diamine Tetraacetic Allergy Unknown . Uncoded 10/29/20 09:59 Acid Past Med/Surg History Medical History (Updated 10/29/20 @ 15:30 by Gavin Moss MD) ACS (acute coronary syndrome) Bilateral carotid artery stenosis Coronary artery disease IMPRESSION: 1. 2 cm hypodensity within the posterior right cerebellar hemisphere suggestive of an acute to subacute infarct. If indicated, an MRI of the brain could be obtained. 2. No acute intracranial hemorrhage or mass effect. Dementia FRANCISCO (generalized anxiety disorder) H/O cardiac pacemaker HLD (hyperlipidemia) HTN (hypertension) Lumbar spinal stenosis T2DM (type 2 diabetes mellitus) Surgical History (Updated 10/29/20 @ 10:52 by Donna Whitehead PA-C) H/O cardiac pacemaker H/O percutaneous transluminal coronary angioplasty History of carpal tunnel release left History of cholecystectomy open 1954 History of colonoscopy History of hysterectomy History of tubal ligation History of umbilical hernia repair Stented coronary artery 2010 90% LAD, 60% second diag - PCI/ANGELY Family History Mother Lung cancer Father Myocardial infarction Social History (Updated 10/29/20 @ 10:55 by Donna Whitehead PA-C) Smoking Status: Former smoker Tobacco Type: Cigarettes Second Hand Exposure: No; Do You Dip or Chew Tobacco: No; Tobacco Cessation Education Requested by Patient: No Hx Alcohol Use: No Hx Substance Use: No Preferred Language: Northern Irish Communication Ability: Effective Bone Char Puller Required: No Beliefs That Will Affect Care: None marital status: / Current Living Situation: Alone Other Information That Helps Us Care for You: No Feels Safe at Home: Yes Safety Concerns: Feels Safe At This Time Assistive Devices: Denture - Upper, Denture - Lower and Glasses Assistive Devices Comment: life alert wristband Review of Systems A total of 10 systems reviewed and were otherwise negative Physical Exam Vital Signs Vital Signs - 24 hr 10/29/20 08:46 10/29/20 10:30 Temperature 37.1 C Temperature Source Oral Pulse Rate 90 Pulse Rate [Apical] 79 Respiratory Rate 16 18 Respiratory Effort / Characteristics Non-Labored Spontaneous Respiratory Depth Normal Respiratory Pattern Regular Blood Pressure 196/98 H Blood Pressure [Left Arm] 131/86 Blood Pressure Mean 130 Blood Pressure Mean [Left Arm] 101 Blood Pressure Position Lying Pulse Oximetry 96 92 Oxygen Delivery Method Room Air Room Air Sepsis Recent Fever Within 48 Hours No Sepsis New/Unexplained Change in Mental Status N/A Sepsis Action Taken by Nursing No Action Required General: Well developed well nourished in no acute distress, breathing comfortably on room air. Normal speech. She is alert to person and place but not date HEENT: Normal cephalic atraumatic. Pupils are equal round and reactive to light. Extraocular movements are intact. Oropharynx is pink with moist mucous membranes. No swelling of the mouth lips or tongue. Neck: Supple with a midline trachea. No meningeal signs or stiffness, no JVD or bruits. No Stridor. Chest: Clear to auscultation bilaterally. No wheezes or rhonchi. No increased work of breathing. Heart: Regular rate and rhythm without murmurs or gallops. Abdomen: Soft nontender, nondistended without rebound guarding or rigidity. Extremities: No cyanosis clubbing or edema. No calf tenderness or assymetry Spine/Back. She is tender to palpation in the central lower back. No CVA tenderness Skin: Good turgor without rashes. Neurologic exam: Cranial nerves two through 12 are intact. Motor and sensation are intact and symmetrical throughout. Course Administered Medications Sodium Chloride (Nss 1000ml) 1,000 mls @ 75 mls/hr IV .[id number] NOAH Stop: 10/30/20 02:17 Last Infusion: 10/29/20 14:17 Dose: 0 mls/hr Documented by: [id number] Admin: 10/29/20 13:26 Dose: 75 mls/hr Documented by: [id number] Polyethylene Glycol (Polyethylene (Miralax) 17 Gm Pack) 17 gm PO DAILY NOAH Stop: 11/28/20 13:14 Last Admin: 10/29/20 14:10 Dose: Not Given Documented by: [id number] Senna/Docusate Sodium (Docusate Sodium/Senna 50/8.6mg Tab) 1 tab PO BID [facility] Stop: 11/28/20 13:14 Last Admin: 10/29/20 14:10 Dose: Not Given Documented by: [id number] Discontinued Medications Ibuprofen (Ibuprofen 600 Mg Tab) 600 mg PO NOW [facility] Stop: 10/29/20 09:06 Last Admin: 10/29/20 09:18 Dose: 600 mg Documented by: [id number] Medical Decision Making Differential Diagnosis Back pain, lumbar compression fracture, UTI, hydronephrosis, intra-abdominal process, electrolyte or metabolic abnormalities, Covid, dementia Medical Records Attestation: I reviewed the patient's medical records. Home Medications Current Medication List: was personally reviewed by me Laboratory Data Attestation: I reviewed the patient's lab results. Result diagrams: 10/29/20 09:20 10/29/20 09:20 Lab Results 10/29/20 10/29/20 10/29/20 Range/Units 09:20 09:20 09:29 WBC 12.94 H (4.8-10.8) K/uL RBC 4.28 (4.2-5.4) M/uL Hgb 13.3 (12.0-16.0) g/dL Hct 41.0 (37-47) % MCV 95.8 (80-100) fL MCH 31.1 (25-34) pg MCHC 32.4 (32-36) g/dL RDW Std Deviation 47.5 H (36.4-46.3) fL RDW Coeff of Leny 13.5 (11.5-14.5) % Plt Count 262 (130-400) K/uL MPV 10.3 (7.4-10.4) fL Immature Gran % (Auto) 0.4 % Neut % (Auto) 82.8 % Lymph % (Auto) 7.2 % Caroline % (Auto) 8.4 % Eos % (Auto) 1.0 % Baso % (Auto) 0.2 % Neut # (Auto) 10.71 H (1.4-6.5) K/uL Lymph # (Auto) 0.93 L (1.2-3.4) K/uL Caroline # (Auto) 1.09 H (0.11-0.59) K/uL Eos # (Auto) 0.13 (0-0.5) K/uL Baso # (Auto) 0.03 (0-0.2) K/uL Immature Gran # (Auto) 0.05 H (0.00-0.02) K/uL Sodium 141 (136-145) mmol/L Potassium 3.6 (3.5-5.1) mmol/L Chloride 104 (98-107) mmol/L Carbon Dioxide 30 (21-32) mmol/L Anion Gap 8.0 (3-11) BUN 26 H (7-18) mg/dl Creatinine 0.67 (0.6-1.2) mg/dl Est Cr Clr Drug Dosing Not Reportable Est GFR ( Amer) 93.6 Est GFR (Non-Af Amer) 80.7 BUN/Creatinine Ratio 39.5 H (10-20) Glucose 115 H (70-99) mg/dl Lactate 0.9 (0.4-2.0) mmol/L Calcium 9.0 (8.5-10.1) mg/dl Total Bilirubin 0.7 (0.2-1) mg/dl AST 24 (15-37) U/L ALT 19 (12-78) U/L Alkaline Phosphatase 93 (45-117) U/L Total Protein 7.1 (6.4-8.2) gm/dl Albumin 2.7 L (3.4-5.0) gm/dl Globulin 4.4 H (2.5-4.0) gm/dl Albumin/Globulin Ratio 0.6 L (0.9-2) SARS-CoV-2 Ag (Rapid) (Negative) 10/29/20 Range/Units 10:51 WBC (4.8-10.8) K/uL RBC (4.2-5.4) M/uL Hgb (12.0-16.0) g/dL Hct (37-47) % MCV (80-100) fL MCH (25-34) pg MCHC (32-36) g/dL RDW Std Deviation (36.4-46.3) fL RDW Coeff of Leny (11.5-14.5) % Plt Count (130-400) K/uL MPV (7.4-10.4) fL Immature Gran % (Auto) % Neut % (Auto) % Lymph % (Auto) % Caroline % (Auto) % Eos % (Auto) % Baso % (Auto) % Neut # (Auto) (1.4-6.5) K/uL Lymph # (Auto) (1.2-3.4) K/uL Caroline # (Auto) (0.11-0.59) K/uL Eos # (Auto) (0-0.5) K/uL Baso # (Auto) (0-0.2) K/uL Immature Gran # (Auto) (0.00-0.02) K/uL Sodium (136-145) mmol/L Potassium (3.5-5.1) mmol/L Chloride (98-107) mmol/L Carbon Dioxide (21-32) mmol/L Anion Gap (3-11) BUN (7-18) mg/dl Creatinine (0.6-1.2) mg/dl Est Cr Clr Drug Dosing Est GFR ( Amer) Est GFR (Non-Af Amer) BUN/Creatinine Ratio (10-20) Glucose (70-99) mg/dl Lactate (0.4-2.0) mmol/L Calcium (8.5-10.1) mg/dl Total Bilirubin (0.2-1) mg/dl AST (15-37) U/L ALT (12-78) U/L Alkaline Phosphatase (45-117) U/L Total Protein (6.4-8.2) gm/dl Albumin (3.4-5.0) gm/dl Globulin (2.5-4.0) gm/dl Albumin/Globulin Ratio (0.9-2) SARS-CoV-2 Ag (Rapid) Negative (Negative) Imaging Data Attestation: I personally reviewed and interpreted this imaging study as follows: Radiologist's Impression: CT OF THE ABDOMEN AND PELVIS WITHOUT CONTRAST CLINICAL HISTORY: Abdominal pain. Confusion. COMPARISON STUDY: CT of the abdomen and pelvis August 12, 2011. TECHNIQUE: Axial images of the abdomen and pelvis were obtained without IV contrast. Images were reviewed in the axial, sagittal, and coronal planes. Automated exposure control was utilized for the study. A dose lowering technique was utilized adhering to the principles of ALARA. FINDINGS: Pacer leads are partially imaged. There is a small hiatal hernia. No pneumatosis, free air or portal venous gas is present. Evaluation of the abdomen and pelvis is suboptimal on this unenhanced exam. The liver, spleen, adrenal glands and pancreas are unremarkable. There is no biliary ductal dilatation status post cholecystectomy. There is no evidence for a bowel obstruction. A large amount of stool within the rectum is noted with a moderate amount stool within the colon. Sigmoid diverticulosis is present without evidence for acute diverticulitis. There is no evidence for a bowel obstruction. Eventration of the anterior abdominal wall is again noted. This is unchanged. Right renal lesions are suboptimally assessed on this unenhanced exam. A 2.8 cm water attenuation lesion within the lower pole of the right kidney likely reflects a cyst. An adjacent 2 cm intermediate attenuation lesion on image 186 is indeterminate. Note is made of mild prevertebral vertebral infiltration. An L1 compression fracture involving the superior endplate with 25% loss of vertebral body height is noted. There is also a subtle L3 fracture which extends to the vertebral body with slight loss of height. No acute pelvic or proximal femoral fracture is present. IMPRESSION: 1. L1 vertebral compression fracture with 25% loss of vertebral body height. This is acute to subacute. 2. Acute to subacute L3 fracture with slight loss of vertebral body height. Associated prevertebral infiltration. 3. 2 cm lesion within lower pole of the right kidney. This is suboptimally assessed on this unenhanced exam. This could reflect a hyperdense cyst or solid renal lesion. Nonemergent renal ultrasound is recommended. Adjacent water attenuation lesion favors a cyst. 4. Large amount stool within the rectum. Moderate amount stool within the colon. No bowel obstruction. ECG Data Attestation: I personally reviewed and interpreted this ECG as follows: Indication: + weakness Rate (beats per minute): 77 Rhythm: + normal sinus ECG Intervals/blocks: + Normal QRS, + Normal QT and + Normal OH ECG Broadbent: + Normal ECG ST segments: + Normal ST segments ECG Findings: no PACs and no PVCs Comparison ECG Date: from (01/13/19) Change: no significant change MDM Narrative This patient comes in as described above. She was placed on a court recording monitor and room #A12. She has dementia and has has ongoing back pain. I do worry about her ability to care for self she says she has not been eating or drinking. We did do a significant work-up here including blood work urinalysis and further imaging. She did receive 50 mcg of fentanyl on route by EMS and got somewhat hypoxemic with this. She is not on oxygen at present and is no longer hypoxemic. White count is mildly elevated. Urinalysis is pending. BUN is mildly elevated she could be dehydrated. CAT scan does show the lumbar fracture but no other findings. It sounds like she is not doing well at home she is not drinking I think she is a little dehydrated she was given some IV fluids. She is nothing to suggest acute coronary syndrome or arrhythmia. I do think she needs to be admitted for pain management and possible placement. I have consulted the hospitalist to see her. Continuous cardiac monitoring: Order was placed in the EMR for continuous cardi ac monitoring. The patient was noted to be in normal sinus rhythm with a rate 85 Impression & Plan Weakness, Fall, Fracture of lumbar spine, Acute dehydration Discharge Plan Visit Data Chief Complaint: Back Injury/Pain ED Provider: Gavin Moss ED Midlevel Provider: Jed Berman Discharge Problem: Weakness, Fall, Fracture of lumbar spine, Acute dehydration Patient Disposition: Admitted As Inpatient Discharge Instructions Interventions: ED Discharge Assessment Last Done: 10/29/20 12:24 Discharge Problem: Fall Qualifiers: Encounter type: initial encounter Qualified Code(s): W19.XXXA - Unspecified fall, initial encounter Fracture of lumbar spine Qualifiers: Encounter type: subsequent encounter Lumbar vertebra fracture level: L1 Fracture type: closed Fracture morphology: unspecified fracture morphology Fracture healing: with routine healing Qualified Code(s): S32.019D - Unspecified fracture of first lumbar vertebra, subsequent encounter for fracture with routine healing
--- NOTE | 2020-10-29 09:29 | Communication Note ---
Date of Service: October 29, 2020 Patient seen in conjunction with Dr. Moss, I will discuss case with him and place orders.
[2020-10-29 09:33] LABS: Basophils # (auto) 0.03 K/uL (0-0.2); Basophils % (auto) 0.2 %; Eosinophils # (auto) 0.13 K/uL (0-0.5); Hemoglobin 13.3 g/dL (12.0-16.0); Immature Granulocytes # (auto) 0.05 K/uL (0.00-0.02); Immature Granulocytes % (auto) 0.4 %; Lymphocytes # (auto) 0.93 K/uL (1.2-3.4); Lymphocytes % (auto) 7.2 %; Mean Corpuscular Hemoglobin 31.1 pg (25-34); Mean Corpuscular Hgb Conc 32.4 g/dL (32-36); Mean Corpuscular Volume 95.8 fL (80-100); Mean Platelet Volume 10.3 fL (7.4-10.4); Monocytes # (auto) 1.09 K/uL (0.11-0.59); Monocytes % (auto) 8.4 %; Neutrophils # (auto) 10.71 K/uL (1.4-6.5); Neutrophils % (auto) 82.8 %; Platelet Count 262 K/uL (130-400); RDW Coefficient of Variation 13.5 % (11.5-14.5); RDW Standard Deviation 47.5 fL (36.4-46.3); Red Blood Count 4.28 M/uL (4.2-5.4); White Blood Count 12.94 K/uL (4.8-10.8)
[2020-10-29 09:51] LABS: Alanine Aminotransferase 19 U/L (12-78); Albumin Level 2.7 gm/dl (3.4-5.0); Aspartate Aminotransferase 24 U/L (15-37); BUN Creatinine Ratio 39.5 (10-20); Blood Urea Nitrogen 26 mg/dl (7-18); Carbon Dioxide 30 mmol/L (21-32); Chloride 104 mmol/L (98-107); Est GFR (African American) 93.6; Est GFR (Non-African American) 80.7; Glucose 115 mg/dl (70-99); Potassium 3.6 mmol/L (3.5-5.1); Sodium 141 mmol/L (136-145)
[2020-10-29 09:54] LABS: Albumin Globulin Ratio 0.6 (0.9-2); Alkaline Phosphatase 93 U/L (45-117); Bilirubin,Total 0.7 mg/dl (0.2-1); Globulin 4.4 gm/dl (2.5-4.0); Total Protein 7.1 gm/dl (6.4-8.2)
--- NOTE | 2020-10-29 10:27 | CT Scan Report ---
CT OF THE ABDOMEN AND PELVIS WITHOUT CONTRAST CLINICAL HISTORY: Abdominal pain. Confusion. COMPARISON STUDY: CT of the abdomen and pelvis August 12, 2011. TECHNIQUE: Axial images of the abdomen and pelvis were obtained without IV contrast. Images were revi ewed in the axial, sagittal, and coronal planes. Automated exposure control was utilized for the lamberto dy. A dose lowering technique was utilized adhering to the principles of ALARA. FINDINGS: Pacer leads are partially imaged. There is a small hiatal hernia. No pneumatosis, free air or portal venous gas is present. Evaluation of the abdomen and pelvis is suboptimal on this unenhance d exam. The liver, spleen, adrenal glands and pancreas are unremarkable. There is no biliary ductal d ilatation status post cholecystectomy. There is no evidence for a bowel obstruction. A large amount o f stool within the rectum is noted with a moderate amount stool within the colon. Sigmoid diverticulo sis is present without evidence for acute diverticulitis. There is no evidence for a bowel obstructio n. Eventration of the anterior abdominal wall is again noted. This is unchanged. Right renal lesions are suboptimally assessed on this unenhanced exam. A 2.8 cm water attenuation lesion within the lower pole of the right kidney likely reflects a cyst. An adjacent 2 cm intermediate attenuation lesion on image 186 is indeterminate. Note is made of mild prevertebral vertebral infiltration. An L1 compress ion fracture involving the superior endplate with 25% loss of vertebral body height is noted. There i s also a subtle L3 fracture which extends to the vertebral body with slight loss of height. No acute pelvic or proximal femoral fracture is present. IMPRESSION: 1. L1 vertebral compression fracture with 25% loss of vertebral body height. This is acute to subacut e. 2. Acute to subacute L3 fracture with slight loss of vertebral body height. Associated prevertebral i nfiltration. 3. 2 cm lesion within lower pole of the right kidney. This is suboptimally assessed on this unenhance d exam. This could reflect a hyperdense cyst or solid renal lesion. Nonemergent renal ultrasound is r ecommended. Adjacent water attenuation lesion favors a cyst. 4. Large amount stool within the rectum. Moderate amount stool within the colon. No bowel obstruction . ACT 112: Negative or not required by law. Electronically signed by: Riley Guidry M.D. 10/29/2020 10:26 AM
--- NOTE | 2020-10-29 11:59 | History & Physical Report ---
Date of Service October 29, 2020 Assessment & Plan (1) Ambulatory dysfunction: (2) Closed compression fracture of L1 vertebra: Admit to Med/Surg unknown etiology of acute/subacute fx of L1/L3 consult Dr. Knowles PT/OT lidoderm patch ICE Scheduled APAP, Prn Tramadol obtain vit d level (3) Leukocytosis: possible underlying infection pt does not meet SIRS criteria per son significant decline in mental status past 2 months obtain UA, CXR, blood culture empirically tx with IV rocephin until culture returns (pt has had keflex in past per [facility]) (4) Dementia: decline in cognition rapidly over past 2 months per son, prior was just forgetful obtain Head CT, r/o infection obtain TSH, B12, RPR speech therapy (5) Constipation: per son, pt with chronic constipation issues CT a/p reveal moderate stool in colon and rectum start miralax, senna -s If no BM by tomorrow consider fleet enema (6) Coronary artery disease: hx of CAD with prior PCI in 2010 has not been taking any of her meds Per [facility] was prescribed losartan, crestor, metoprolol and asa (7) HTN (hypertension): hx of HTN, again not taking any meds prior was on losartan 100 daily and metoprolol succ 50mg daily monitor BP, currently 131/86 (8) T2DM (type 2 diabetes mellitus): previously on oral hypogylcemics last a1c 6.1 in 2019 a1c in a.m. bsg in ED 115 await a1c in a.m. - no insulin coverage added for now (9) DVT prophylaxis: SQ Lovenox - if CT head negative Disposition: admit to med/surg, case management consulted, pt lives at home with dementia, may require placement Follow up: PCP Dr. Pino upon discharge, looks like last follow up was in 2019 Pt was seen and examined in collaboration with Dr. Caballero, please see addendum History of Present Illness Chief Complaint: Back pain times several days. Primary Care Provider: Diaz Pino MD This is an 84-year-old female who has significant past medical history of T2DM, CAD, HTN, HLD, bilateral carotid artery stenosis, advanced dementia, pacemaker, lumbar spinal stenosis, generalized anxiety disorder who presents to ED secondary to back pain times several days. She was seen and evaluated in ED yesterday which showed an L1 compression fracture. She was discharged to home. Patient lives at home by herself. She is for the past 2 to 3 years. History obtained mostly from son. History difficult with patient secondary to dementia. According to son she has a life alert bracelet. She pressed her life alert bracelet this morning and explained to them she had severe back pain. EMS was then summoned and she was brought back to the ED. According to son she typically ambulates with a walker. Lives by herself and typically is independent of ADLs. He is noticed over the past 2 months a significant decline in her mental status. He admits that she complains of back pain for most of her life and used to see a chiropractor. He also states that she has chronic constipation. He denies any known COVID-19 contacts. ROS unreliable secondary to cognition. Per son patient has not taken any of her medications for at least the past year. "I have tried everything to get her to take her meds." In ED CBC and CMP was generally unremarkable. It did reveal mild leukocytosis at 12.94k, BUN 26, creatinine 0.67, glucose 115, albumin 2.7. SARS-CoV-[address] abdomen pelvis reveals L1 vertebral compression fracture with 25% loss of vertebral height, acute to subacute. Acute to subacute L3 fracture with slight loss of vertebral body height. 2 cm lesion within lower pole of right kidney. Nonemergent ultrasound recommended. Large amount of stool within the rectum. Moderate amount of stool within the colon. Yesterday CT of lumbar spine performed which again confirmed L1 compression fx. In ED she received 600mg of Ibuprofen. Allergies Allergy/AdvReac Type Severity Reaction Status Date / Time MILADY Inhibitors Allergy Unknown . Verified 10/29/20 09:59 adhesive Allergy Unknown . Verified 10/29/20 09:59 doxycycline Allergy Unknown . Verified 10/29/20 09:59 Iodinated Contrast Media Allergy Unknown . Verified 10/29/20 09:59 methylparaben Allergy Unknown . Verified 10/29/20 09:59 nystatin Allergy Unknown Verified 10/29/20 09:59 Penicillins Allergy Unknown Verified 10/29/20 09:59 simvastatin Allergy Unknown . Verified 10/29/20 09:59 Tetracyclines Allergy Unknown Verified 10/29/20 09:59 triamcinolone Allergy Unknown . Verified 10/29/20 09:59 Ethylene Diamine Tetraacetic Allergy Unknown . Uncoded 10/29/20 09:59 Acid Home Medications Medication Instructions Recorded Confirmed Type tramadol [Ultram] 50 mg PO Q6H PRN #30 tab 10/28/20 10/29/20 Rx Past Med/Surg History Medical History (Updated 10/29/20 @ 15:30 by Gavin Moss MD) ACS (acute coronary syndrome) Bilateral carotid artery stenosis Coronary artery disease IMPRESSION: 1. 2 cm hypodensity within the posterior right cerebellar hemisphere suggestive of an acute to subacute infarct. If indicated, an MRI of the brain could be obtained. 2. No acute intracranial hemorrhage or mass effect. Dementia FRANCISCO (generalized anxiety disorder) H/O cardiac pacemaker HLD (hyperlipidemia) HTN (hypertension) Lumbar spinal stenosis T2DM (type 2 diabetes mellitus) Surgical History (Updated 10/29/20 @ 10:52 by Donna Whitehead PA-C) H/O cardiac pacemaker H/O percutaneous transluminal coronary angioplasty History of carpal tunnel release left History of cholecystectomy open 1954 History of colonoscopy History of hysterectomy History of tubal ligation History of umbilical hernia repair Stented coronary artery 2010 90% LAD, 60% second diag - PCI/ANGELY Family History Mother Lung cancer Father Myocardial infarction Social History (Updated 10/29/20 @ 10:55 by Donna Whitehead PA-C) Smoking Status: Former smoker Tobacco Type: Cigarettes Second Hand Exposure: No; Do You Dip or Chew Tobacco: No; Tobacco Cessation Education Requested by Patient: No Hx Alcohol Use: No Hx Substance Use: No Preferred Language: Beninese Communication Ability: Effective Billet Checker Required: No Beliefs That Will Affect Care: None marital status: / Current Living Situation: Alone Other Information That Helps Us Care for You: No Feels Safe at Home: Yes Safety Concerns: Feels Safe At This Time Assistive Devices: Denture - Upper, Denture - Lower and Glasses Assistive Devices Comment: life alert wristband Review of Systems Review of Systems: All systems reviewed & are unremarkable except as noted in HPI & below Physical Exam Physical Exam: Constitutional: Elderly, female, vitals as above, NAD, sitting up in bed, pleasant, answers questions, very tangential Head: Normocephalic, Atraumatic Eyes: PERRL, conjunctivae normal, anicteric sclerae ENMT: external ear and nose normal, oropharynx normal dry mucous membranes Neck: trachea midline, no thyromegaly normal visual inspection Respiratory: normal respiratory effort, lungs clear to auscultation, no wheeze, rales, rhonchi. Normal insp/exp effort, no accessory muscle use Cardiovascular: RRR, no murmur, no edema Vessels: no JVD or carotid bruit Chest: normal inspection of chest Abdomen: normal bowel sounds, soft, nontender, no hepatosplenomegaly, mildly distended but no pain Musculoskeletal: no cyanosis or clubbing, active range of motion x4, extremities motor strength 5/5, right lower extremity 4/5, unable to assess posterior thorax as patient would not cooperate with exam Skin: no rashes, warm and dry normal turgor , life alert bracelet to RUE Neurologic: PERRL, EOMI, accommodation nl, no face palsy, no dysarthria CN's II-XI intact bilaterally and moves all extremities Psychiatric: A+Ox 1 to self only, euthymic affect : deferred Results & Data Results & Data ([facility]) Vital Signs (Past 12 Hours) Vital Signs Temp Pulse Pulse Resp BP BP Pulse Ox 10/29/20 10:30 79 18 131/86 92 10/29/20 08:46 37.1 C 90 16 196/98 H 96 Laboratory Results Short CBC 10/29/20 Range/Units 09:20 WBC 12.94 H (4.8-10.8) K/uL Hgb 13.3 (12.0-16.0) g/dL Hct 41.0 (37-47) % Plt Count 262 (130-400) K/uL BMP 10/29/20 09:20 Sodium 141 Potassium 3.6 Chloride 104 Carbon Dioxide 30 BUN 26 H Creatinine 0.67 Glucose 115 H Calcium 9.0 Liver Function 10/29/20 Range/Units 09:20 Total Bilirubin 0.7 (0.2-1) mg/dl AST 24 (15-37) U/L ALT 19 (12-78) U/L Alkaline Phosphatase 93 (45-117) U/L Albumin 2.7 L (3.4-5.0) gm/dl Diagnostic Findings CT abd/pelvis: FINDINGS: Pacer leads are partially imaged. There is a small hiatal hernia. No pneumatosis, free air or portal venous gas is present. Evaluation of the abdomen and pelvis is suboptimal on this unenhanced exam. The liver, spleen, adrenal glands and pancreas are unremarkable. There is no biliary ductal dilatation status post cholecystectomy. There is no evidence for a bowel obstruction. A large amount of stool within the rectum is noted with a moderate amount stool within the colon. Sigmoid diverticulosis is present without evidence for acute diverticulitis. There is no evidence for a bowel obstruction. Eventration of the anterior abdominal wall is again noted. This is unchanged. Right renal lesions are suboptimally assessed on this unenhanced exam. A 2.8 cm water attenuation lesion within the lower pole of the right kidney likely reflects a cyst. An adjacent 2 cm intermediate attenuation lesion on image 186 is indeterminate. Note is made of mild prevertebral vertebral infiltration. An L1 compression fracture involving the superior endplate with 25% loss of vertebral body height is noted. There is also a subtle L3 fracture which extends to the vertebral body with slight loss of height. No acute pelvic or proximal femoral fracture is present. IMPRESSION: 1. L1 vertebral compression fracture with 25% loss of vertebral body height. This is acute to subacute. 2. Acute to subacute L3 fracture with slight loss of vertebral body height. Associated prevertebral infiltration. 3. 2 cm lesion within lower pole of the right kidney. This is suboptimally assessed on this unenhanced exam. This could reflect a hyperdense cyst or solid renal lesion. Nonemergent renal ultrasound is recommended. Adjacent water attenuation lesion favors a cyst. 4. Large amount stool within the rectum. Moderate amount stool within the colon. No bowel obstruction. Lumbar Spine CT: IMPRESSION: 1. Mild subacute superior endplate L1 compression fracture 2. Multilevel spondylytic changes with moderate spinal stenosis at the L2-3 level, severe spinal stenosis at the L3-4 level, and mild to moderate spinal stenosis at the L4-5 level. Medications Administered Discontinued Medications Ibuprofen (Ibuprofen 600 Mg Tab) 600 mg PO NOW STA Stop: 10/29/20 09:06 Last Admin: 10/29/20 09:18 Dose: 600 mg Documented by: [id number] Code Status & VTE Plan Code Status Full Code Discussed with son - pt does not have advance directive but would want temporary attempts for resuscitation VTE Prophylaxis Plan VTE Prophylaxis will be ordered: Yes Supervising Physician Co-Signing Physician Notes Attending addendum The patient was seen and examined in medical telemetry unit She is an 84-year-old female with significant past medical history including dementia was admitted with ambulatory dysfunction with increasing confusion She was noted to have possible acute to subacute right cerebellar hemisphere infarction She has been noncooperative during my time of examination She remained hemodynamically stable On examination Not in any acute distress at rest but is very uncooperative Denies any significant pain and/or distress Hemodynamically stable Chest-clear to auscultate bilaterally Heart-S1, S2 regular Abdomen-benign Extremities-negative for any edema PARLIAMENTARY ARCHIVIST-alert and awake. Confused and noncooperative. Moves all extremities Admission labs and imaging studies reviewed Possible right cerebellar infarction-has been on aspirin and Plavix as per neurology ,neurology consulted Ambulatory dysfunction-we will get PT and OT evaluation Closed compression fracture of L1 and other vertebrae without any radiculopathy. Dementia with acute confusion Ceftriaxone for possible UTI Stable CAD Agree with the assessment and plan as outlined above by JENNIFFER Valderrama Dr (1) Closed compression fracture of L1 vertebra Encounter type: initial encounter Qualified Code(s): S32.010A - Wedge compression fracture of first lumbar vertebra, initial encounter for closed fracture
--- NOTE | 2020-10-29 12:54 | CT Scan Report ---
CT OF THE HEAD WITHOUT CONTRAST CLINICAL HISTORY: confusion COMPARISON STUDY: Head CT July 27, 2019. CT DOSE: 537.48 mGy.cm TECHNIQUE: Helical axial images of the head were obtained without IV contrast. Automated exposure con trol was utilized for the study. A dose lowering technique was utilized adhering to the principles o f ALARA. FINDINGS: No acute intracranial hemorrhage, midline shift or mass effect is present. Ventricular syst em is normal. Basal cisterns are patent. There are no extra axial collections. Note is made of a 2 cm hypodensity within the posterior aspect of the right cerebellar hemisphere. This is new since head C T July 27, 2019. White matter hypodensities are unchanged and suggest small vessel disease. Ther e are no significant calvarial abnormalities. Visualized portions of the sinuses and mastoid air cell s are clear. IMPRESSION: 1. 2 cm hypodensity within the posterior right cerebellar hemisphere suggestive of an acute to subacu te infarct. If indicated, an MRI of the brain could be obtained. 2. No acute intracranial hemorrhage or mass effect. ACT 112: Negative or not required by law. Electronically signed by: Riley Guidry M.D. 10/29/2020 12:53 PM
[2020-10-29] MEDS ORDERED: POLYETHYLENE (MIRALAX) 17 GM PACK PO PRN (12:58)
[2020-10-29] MEDS ORDERED: traMADol HCL 50 MG TABLET PO PRN (12:58)
[2020-10-29] MEDS ORDERED: SODIUM CHLORIDE 0.9% 1000ML 1,000 ML IV SCH (12:58)
[2020-10-29] MEDS ORDERED: ONDANSETRON INJ 2 MG/ML 2 ML VIAL IV PRN (12:58)
[2020-10-29] MEDS ORDERED: MAGNESIUM HYDROXIDE SUSP 30 ML UDC PO PRN (12:58)
[2020-10-29] MEDS ORDERED: ALUMINUM/MAGNESIUM SUSP 30 ML UDC PO PRN (12:58)
[2020-10-29] MEDS ORDERED: cefTRIAXone SODIUM 1,000 MG in DEXTROSE 5% 50 ML IV SCH (13:15)
--- NOTE | 2020-10-29 13:17 | XRay Report ---
XR hip RT 2V w pelvis CLINICAL HISTORY: Right hip pain. COMPARISON: Pelvis radiograph January 13, 2019. FINDINGS: Large amount stool within the rectum is noted. The sacroiliac joints and symphysis pubis a re intact. No acute fracture within the pelvis or hips is identified. No suspicious osseous lesion is identified by CT. There is severe osteoarthritis of the right hip. Moderate osteoarthritis of the le ft hip is noted. Extensive vascular calcification is incidentally noted. IMPRESSION: 1. No acute fracture within the pelvis or hips. 2. Severe osteoarthritis of the right hip. Moderate osteoarthritis of the left hip. ACT 112: Negative or not required by law. Electronically signed by: Riley Guidry M.D. 10/29/2020 1:16 PM
[2020-10-29] MEDS ORDERED: ASPIRIN 300 MG SUPP PR ONE (13:36)
[2020-10-29] MEDS ORDERED: PHARMACIST DISCHARGE MED REC CONSULT PRN (13:37)
--- NOTE | 2020-10-29 13:41 | Communication Note ---
Date of Service: October 29, 2020 1330 Pt currently in 387-2 and re examined. she is actually more alert now and less confused, upset about the passing of her a few years back. She did receive fentanyl in ambulance so could be contributing to worsened confusion. CT Head w/o contrast ordered 12/09 to reported increased confusion in dementia pt x 2 months. IMPRESSION: 1. 2 cm hypodensity within the posterior right cerebellar hemisphere suggestive of an acute to subacute infarct. If indicated, an MRI of the brain could be obtained. 2. No acute intracranial hemorrhage or mass effect. Transfer to med/tele for telemetry monitoring consult neurology - Dr. Pastrana - will discuss with neuro ASA 300mg [place] x 1 now, aspirin 81mg and plavix 75mg daily starting tomorrow - pt currently not on asa therapy NPO until dysphagia screen passed - alerted by JANICE Delgadillo unable to do on 3rd floor obtain echocardiogram, carotid doppler allergy to IVP so will avoid CTA h/n pt with pacemaker 2010 - unable to obtain MRI Repeat Head CT in a.m. PT/OT/ST already consulted will interrogate pacer - last done looks like 2018 - last follow up with Cardiology per my assessment NIH 2 - only because of cognition but pt also with dementia so unreliable, otherwise no neurofocal deficits Nonemergent follow up as outpatient: 2 cm lesion within lower pole of the right kidney. This is suboptimally assessed on this unenhanced exam. This could reflect a hyperdense cyst or solid renal lesion. Nonemergent renal ultrasound is recommended. Adjacent water attenuation lesion favors a cyst. Attending Addendum: Chart and the imaging studies reviewed. Agree with the assessment and plan. DR Wallace Caballero
[2020-10-29] MEDS: POLYETHYLENE (MIRALAX) 17 GM PACK PO SCH (14:10)
[2020-10-29] MEDS: DOCUSATE SODIUM/SENNA 50/8.6MG TAB PO SCH ×2 (14:10→20:01)
--- NOTE | 2020-10-29 15:59 | Ultrasound Report ---
CAROTID ARTERY ULTRASOUND CLINICAL HISTORY: Cerebrovascular accident. COMPARISON STUDY: None. TECHNIQUE: Real-time, grayscale, and color Doppler sonography of the carotid and vertebral arteries w as performed. Images were viewed in the transverse and longitudinal planes. FINDINGS: There is extensive atherosclerotic plaque. Velocity measurements are listed below. COMMON CAROTID PEAK SYSTOLIC VELOCITY (CM/S): RIGHT 71 LEFT 84 ICA PEAK SYSTOLIC VELOCITY (CM/S): RIGHT 145 LEFT 132 Systolic ratio between the right internal to common carotid artery is mildly elevated at 2. The systo lic ratio between the left internal to common carotid artery is at the upper limits of normal, measur ing 1.6. Antegrade flow is seen in the vertebral arteries. The external carotid arteries are patent. Blood pressure in the right arm measured 195/98. Blood pressure in the left arm measured 178/74. IMPRESSION: 1. Findings suggestive of 50-69% stenosis of the proximal right internal carotid artery. 2. Findings suggestive of approximately 50% stenosis of the proximal left internal carotid artery alt sukh evaluation is difficult given extensive atherosclerotic plaque with shadowing. 3. Elevated blood pressure, as above. ACT 112: Negative or not required by law. Electronically signed by: Riley Guidry M.D. 10/29/2020 3:58 PM
--- NOTE | 2020-10-29 16:19 | Neurology Consultation ---
Date of Consultation October 29, 2020 Assessment & Plan (1) Dementia: 1. repeat CT head in 24-48 hours - unable to obtain MRI due to pacemaker 2. interrogate pacer if not done recently 3. B12, folate, thiamine level 4. PT/OT for discharge needs 5. possible CVA await results of CT head 6. social work supervisor need to be involved if she is living alone - needs intervention 7. back pain unclear when she fell or what the cause of he fall 8. ultram on patient medication list would not give to a patient of this age 9. orthopedics for compression fracture evaluation 10. possible Zio as outpatient if stroke is present 11. aspirin 81 mg should be added 12. follow up with neurology Teresa Guevara PAC 4-6 weeks after discharge from hospital or rehab Present on Admission?: Yes Supervising Physician Co-Signing Physician Notes I have seen and discussed above patient with Dr Adiel Pastrana, neurology I have examined Mrs. Mujica today with Teresa Guevara PA-C and I reviewed the above note, imaging studies pertinent laboratory studies and what records we have available from her [employer] chart She clearly has had a progressive cognitive decline and 2 years ago was felt to be unsafe to live alone and is now gone a year without taking any medications according to the chart and at some point had a fall sufficient to cause a compression fracture although the duration of this is unclear and she now denies any pain. She is oriented to the fact she is in the hospital beyond this her only complaint is numbness of her hands this may be longstanding and her examination shows perhaps a mild left facial asymmetry, and some unreliable sensory loss in the lower extremities very large fiber modalities no real drift pronation sign or anything that would correlate with the presence of what is been described as a subacute infarction in the right cerebellar hemisphere We did go over some CT scans from the [employer] system and I believe there is a similar appearing area of infarction on the study in 2018 but it is smaller although the exact cuts were not the same Our suggestions are to get some metabolic studies as her nutritional status is probably been declining, to get her back on aspirin, to repeat the CT scan to see if this is an infarction is going to enlarged although I frankly doubt it is suspected as probably older may be pre-existing 1 and at some point perhaps getting a ZIO Patch on an outpatient basis as there is no real compelling evidence for an arterial source of emboli or cardiac source of emboli on the studies that have been done Dr. Gallegos will be made aware of her case and will be doing some chart review but I do not think this can be much value in him making daily rounds Obviously social service needs to get involved here as it is clear she can no longer maintain herself in the home environment She will likely begin to develop more "sundowning" the longer she is here in the hospital Adiel Pastrana MD History of Present Illness Reason for Consultation: acute subacute CVA on CT head Requesting Physician: Nura Caballero MD Attending Physician: Nura Caballero MD History of Present Illness Leigh Ann is an 84 year old female with a PMH- DM2, CAD, HTN, HLD, bilateral carotid artery stenosis, advanced dementia, pacemaker, lumbar spinal stenosis, generalized anxiety disorder who presents to ED secondary to back pain times several days. She was brought in the day prior and was found to have an L1 compression fracture and was then discharged to home. She is and states her son lives with her. She does wear a life alert bracelet. She pressed her life alert bracelet this morning and explained to them she had severe back pain and she was brought back to the ED. According to son she typically ambulates with a walker and independent with ADL. notes in the chart indicated she lives alone. Son described a decline in past 2 months in her MS. Her son states she stopped taking her medications about a year ago. So it is unclear how she is eating and her albumin level is low. denies CP, SOB, abdominal pain, one sided weakness, +numbness bilateral hands, +back pain Allergies Allergy/AdvReac Type Severity Reaction Status Date / Time MILADY Inhibitors Allergy Unknown . Verified 10/29/20 09:59 adhesive Allergy Unknown . Verified 10/29/20 09:59 doxycycline Allergy Unknown . Verified 10/29/20 09:59 Iodinated Contrast Media Allergy Unknown . Verified 10/29/20 09:59 methylparaben Allergy Unknown . Verified 10/29/20 09:59 nystatin Allergy Unknown Verified 10/29/20 09:59 Penicillins Allergy Unknown Verified 10/29/20 09:59 simvastatin Allergy Unknown . Verified 10/29/20 09:59 Tetracyclines Allergy Unknown Verified 10/29/20 09:59 triamcinolone Allergy Unknown . Verified 10/29/20 09:59 Ethylene Diamine Tetraacetic Allergy Unknown . Uncoded 10/29/20 09:59 Acid Home Medications Medication Instructions Recorded Confirmed Type tramadol [Ultram] 50 mg PO Q6H PRN #30 tab 10/28/20 10/29/20 Rx Patient History Medical History (Updated 10/29/20 @ 15:30 by Gavin Moss MD) ACS (acute coronary syndrome) Bilateral carotid artery stenosis Coronary artery disease IMPRESSION: 1. 2 cm hypodensity within the posterior right cerebellar hemisphere suggestive of an acute to subacute infarct. If indicated, an MRI of the brain could be obtained. 2. No acute intracranial hemorrhage or mass effect. Dementia FRANCISCO (generalized anxiety disorder) H/O cardiac pacemaker HLD (hyperlipidemia) HTN (hypertension) Lumbar spinal stenosis T2DM (type 2 diabetes mellitus) Surgical History (Updated 10/29/20 @ 10:52 by Donna Whitehead PA-C) H/O cardiac pacemaker H/O percutaneous transluminal coronary angioplasty History of carpal tunnel release left History of cholecystectomy open 1954 History of colonoscopy History of hysterectomy History of tubal ligation History of umbilical hernia repair Stented coronary artery 2010 90% LAD, 60% second diag - PCI/ANGELY Family History Mother Lung cancer Father Myocardial infarction Social History (Updated 10/29/20 @ 10:55 by Donna Whitehead PA-C) Smoking Status: Former smoker Tobacco Type: Cigarettes Second Hand Exposure: No; Do You Dip or Chew Tobacco: No; Tobacco Cessation Education Requested by Patient: No Hx Alcohol Use: No Hx Substance Use: No Preferred Language: Spanish Communication Ability: Effective 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 Beliefs That Will Affect Care: None marital status: / Current Living Situation: Alone Other Information That Helps Us Care for You: No Feels Safe at Home: Yes Safety Concerns: Feels Safe At This Time Assistive Devices: Denture - Upper, Denture - Lower and Glasses Assistive Devices Comment: life alert wristband Review of Systems Review of Systems: All systems reviewed & are unremarkable except as noted in HPI & below and All systems reviewed & are unremarkable except as noted in Subjective Physical Exam Physical Exam: Physical Exam: Constitutional: appearance pleasantly confused Ears, Nose, Mouth and Throat: mucous membranes moist, no injection and skin normal, eyes normal Cardiovascular: normal S-1 and S-2 and regular rate and rhythm Respiratory: course breath sounds Musculoskeletal: no peripheral edema and good distal pulses Skin: no stigmata of neurocutaneous disease noted and normal and intact Eyes: extraocular muscles intact (EOMI) and pupils equal, round and reactive to light (PERRL) NEUROLOGIC EXAMINATION: Mental status: Alert and interactive Oriented to full date and location Oriented to person Speech no aphasia, knows she is in the hospital thinks it is summer, but when shown snow states winter, does no know what holiday this month Cranial Nerves slight left facial droop Reflexes: Deep tendon reflexes were symmetrical and graded 2/5. down going toes Sensory: no sensory deficits, light cool, vibration Coordination: finger to nose, heel to katz intact Gait/Stance: Posture lying in bed. Gait no assess Motor: Negative for pronator drift of out stretched arms with eyes closed. Strength: hand cognos consultant biceps triceps 4+/5, left hand cognos consultant 4/5, hip flex plantar flex ext 5/5 Results & Data ([facility]) Vital Signs (Past 12 Hours) Vital Signs Temp Pulse Pulse Pulse Resp BP BP 10/29/20 15:00 36.7 C 104 H 20 121/68 10/29/20 12:57 36.3 C L 84 18 176/74 H 10/29/20 12:00 77 18 10/29/20 10:30 79 18 131/86 10/29/20 08:46 37.1 C 90 16 196/98 H Pulse Ox 10/29/20 15:00 91 10/29/20 12:57 98 10/29/20 12:00 99 10/29/20 10:30 92 10/29/20 08:46 96 Laboratory Results Abnormal lab results 10/29/20 10/29/20 Range/Units 09:20 09:20 WBC 12.94 H (4.8-10.8) K/uL RDW Std Deviation 47.5 H (36.4-46.3) fL Neut # (Auto) 10.71 H (1.4-6.5) K/uL Lymph # (Auto) 0.93 L (1.2-3.4) K/uL [place] # (Auto) 1.09 H (0.11-0.59) K/uL Immature Gran # (Auto) 0.05 H (0.00-0.02) K/uL BUN 26 H (7-18) mg/dl BUN/Creatinine Ratio 39.5 H (10-20) Glucose 115 H (70-99) mg/dl Albumin 2.7 L (3.4-5.0) gm/dl Globulin 4.4 H (2.5-4.0) gm/dl Albumin/Globulin Ratio 0.6 L (0.9-2) Diagnostic Findings carotid doppler-. Findings suggestive of 50-69% stenosis of the proximal right internal carotid artery.2. Findings suggestive of approximately 50% stenosis of the proximal left internal carotid artery although evaluation is difficult given extensive atherosclerotic plaque with shadowing. EF 65-70% no ASD CT head- 2 cm hypodensity within the posterior right cerebellar hemisphere suggestive of an acute to subacute infarct. If indicated, an MRI of the brain could be obtained. No acute intracranial hemorrhage or mass effect.
[2020-10-29 16:47] LABS: Appearance Urine Cloudy (Clear); Bacteria Urine Automated 1+ (Negative); Bilirubin Urine Negative (Negative); Blood Urine Negative (Negative); Color Urine Dark Yellow; Epithelial Cell Urine Auto >30 /lpf (0-5); Glucose Urine UA Negative (Negative); Ketones Urine 2+ (Negative); Leukocyte Esterase Urine 1+ (Negative); Nitrite Urine Negative (Negative); Protein Urine Negative (Negative); RBC Urine Automated 0-4 /hpf (0-4); Specific Gravity Urine 1.028 (1.000-1.030); Urobilinogen Urine Negative (Negative)
--- NOTE | 2020-10-29 17:14 | Electrocardiogram Report ---
Test Reason : Blood Pressure : / mmHG Vent. Rate : 077 BPM Atrial Rate : 077 BPM P-R Int : 178 ms QRS Dur : 086 ms QT Int : 394 ms P-R-T Axes : 062 014 038 degrees QTc Int : 445 ms Normal sinus rhythm Normal ECG When compared with ECG of 13-JAN-2019 15:50, No significant change was found Confirmed by Enrique Doshi ([id number]) on 10/29/2020 5:13:47 PM Referred By: REFERRED SELF Confirmed By:Enrique Doshi
[2020-10-29] MEDS ORDERED: cefTRIAXone SODIUM 350 MG/ML IM IM ONE (18:21)
[2020-10-29] MEDS ORDERED: cefTRIAXone SODIUM 1,000 MG in SYRINGE 0 ML IM ONE (18:30)
[2020-10-29] MEDS: LIDOCAINE 5% 1 PATCH TD SCH (19:58)
[2020-10-29] MEDS: ACETAMINOPHEN 325 MG TAB PO SCH ×2 (19:59→20:15)
[2020-10-29] MEDS: ENOXAPARIN INJ 30 MG/0.3 ML SYR SQ SCH (21:34)
[2020-10-30] MEDS ORDERED: HALOPERIDOL LACTATE 5 MG/ML 1 ML VIAL IM STA (02:02)
[2020-10-30] MEDS ORDERED: HALOPERIDOL LACTATE 5 MG/ML 1 ML VIAL ONE (02:04)
[2020-10-30] MEDS ORDERED: ACETAMINOPHEN 1000 MG/100 ML IV IV PRN (03:16)
[2020-10-30 08:26] LABS: Basophils # (auto) 0.04 K/uL (0-0.2); Basophils % (auto) 0.5 %; Eosinophils # (auto) 0.16 K/uL (0-0.5); Eosinophils % (auto) 1.9 %; Hematocrit (blood only) 39.8 % (37-47); Hemoglobin 13.1 g/dL (12.0-16.0); Immature Granulocytes # (auto) 0.03 K/uL (0.00-0.02); Immature Granulocytes % (auto) 0.4 %; Lymphocytes # (auto) 1.07 K/uL (1.2-3.4); Lymphocytes % (auto) 12.6 %; Mean Corpuscular Hemoglobin 31.6 pg (25-34); Mean Corpuscular Hgb Conc 32.9 g/dL (32-36); Mean Corpuscular Volume 96.1 fL (80-100); Mean Platelet Volume 10.3 fL (7.4-10.4); Monocytes # (auto) 0.84 K/uL (0.11-0.59); Monocytes % (auto) 9.9 %; Neutrophils # (auto) 6.32 K/uL (1.4-6.5); Neutrophils % (auto) 74.7 %; Platelet Count 282 K/uL (130-400); RDW Coefficient of Variation 13.5 % (11.5-14.5); RDW Standard Deviation 47.7 fL (36.4-46.3); Red Blood Count 4.14 M/uL (4.2-5.4); White Blood Count 8.46 K/uL (4.8-10.8)
[2020-10-30] MEDS ORDERED: CLOPIDOGREL BISULFATE 75 MG TAB PO SCH (09:00)
[2020-10-30] MEDS ORDERED: ROSUVASTATIN CALCIUM 10 MG TAB PO SCH (09:00)
[2020-10-30 09:01] LABS: Estimated Average Glucose 137 mg/dl; Hemoglobin A1C 6.4 % (4.5-5.6)
--- NOTE | 2020-10-30 09:03 | CT Scan Report ---
CT head/brain wo con CLINICAL HISTORY: Stroke COMPARISON STUDY: 10/29/2020 TECHNIQUE: Axial CT of the brain is performed from the vertex to the skull base. IV contrast was not administered for this examination. A dose lowering technique was utilized adhering to the principles of ALARA. CT DOSE: 537.48 mGy.cm FINDINGS: There is a persistent hypodensity within the right posterior inferior cerebellum suspicious for a PIC A distribution infarct. There is no evidence of acute hemorrhage. There is no evidence of midline wander ft. There are no calvarial fractures. There are and moderate white matter hypodensities likely on a small vessel basis. There is an old rig ht basal ganglia lacunar infarct. There is no evidence of pathologic ventricular dilatation. There is no evidence of acute sinusitis IMPRESSION: 1. No significant change from the prior study 2. Persistent right posterior cerebellar hypodensities suggestive of a PICA distribution infarct. 3. No evidence of acute hemorrhage ACT 112: Negative or not required by law. Electronically signed by: Reynaldo Bansal M.D. 10/30/2020 9:02 AM
[2020-10-30 09:09] LABS: BUN Creatinine Ratio 31.9 (10-20); Calcium 9.1 mg/dl (8.5-10.1); Creatinine Clr Calc Pharmacy 59.8 ml/min; Est GFR (Non-African American) 83.7; Potassium 3.9 mmol/L (3.5-5.1)
[2020-10-30 09:19] LABS: Thyroid Stimulating Hormone 1.18 uIu/ml (0.300-4.500)
--- NOTE | 2020-10-30 09:44 | Orthopedic Consultation ---
Date of Consultation October 30, 2020 Assessment & Plan (1) Closed compression fracture of L1 vertebra: Patient does have severe spinal stenosis with evidence of a possible acute compression fracture. We will order her a brace to wear when up and ambulating as we begin physical therapy. I would certainly try to avoid any surgical intervention in light of her health history of mental status. Present on Admission?: Yes History of Present Illness Reason for Consultation: Back pain Attending Physician: Adiel Alvarez MD History of Present Illness This is an 84-year-old female who presents with back pain. Unsure of mechanism. She has evidence of an L1 compression fracture with modest superior endplate collapse. Today she states she has quite a bit of axial back pain with motion she is fearful to move about the bed. She denies any leg pain. Allergies Allergy/AdvReac Type Severity Reaction Status Date / Time MILADY Inhibitors Allergy Unknown . Verified 10/29/20 09:59 adhesive Allergy Unknown . Verified 10/29/20 09:59 doxycycline Allergy Unknown . Verified 10/29/20 09:59 Iodinated Contrast Media Allergy Unknown . Verified 10/29/20 09:59 methylparaben Allergy Unknown . Verified 10/29/20 09:59 nystatin Allergy Unknown Verified 10/29/20 09:59 Penicillins Allergy Unknown Verified 10/29/20 09:59 simvastatin Allergy Unknown . Verified 10/29/20 09:59 Tetracyclines Allergy Unknown Verified 10/29/20 09:59 triamcinolone Allergy Unknown . Verified 10/29/20 09:59 Ethylene Diamine Tetraacetic Allergy Unknown . Uncoded 10/29/20 09:59 Acid Home Medications Medication Instructions Recorded Confirmed Type tramadol [Ultram] 50 mg PO Q6H PRN #30 tab 10/28/20 10/29/20 Rx Patient History Medical History (Updated 10/29/20 @ 15:30 by Gavin Moss MD) ACS (acute coronary syndrome) Bilateral carotid artery stenosis Coronary artery disease IMPRESSION: 1. 2 cm hypodensity within the posterior right cerebellar hemisphere suggestive of an acute to subacute infarct. If indicated, an MRI of the brain could be obtained. 2. No acute intracranial hemorrhage or mass effect. Dementia FRANCISCO (generalized anxiety disorder) H/O cardiac pacemaker HLD (hyperlipidemia) HTN (hypertension) Lumbar spinal stenosis T2DM (type 2 diabetes mellitus) Surgical History (Updated 10/29/20 @ 10:52 by Donna Whitehead PA-C) H/O cardiac pacemaker H/O percutaneous transluminal coronary angioplasty History of carpal tunnel release left History of cholecystectomy open 5 History of colonoscopy History of hysterectomy History of tubal ligation History of umbilical hernia repair Stented coronary artery 2010 90% LAD, 60% second diag - PCI/ANGELY Family History Mother Lung cancer Father Myocardial infarction Social History (Updated 10/29/20 @ 10:55 by Donna Whitehead PA-C) Smoking Status: Former smoker Tobacco Type: Cigarettes Second Hand Exposure: No; Do You Dip or Chew Tobacco: No; Tobacco Cessation Education Requested by Patient: No Hx Alcohol Use: No Hx Substance Use: No Preferred Language: Andorran Communication Ability: Effective Vp Revenue Cycle Required: No Beliefs That Will Affect Care: None marital status: / Current Living Situation: Alone Other Information That Helps Us Care for You: No Feels Safe at Home: Yes Safety Concerns: Feels Safe At This Time Assistive Devices: Denture - Upper, Denture - Lower and Glasses Assistive Devices Comment: life alert wristband Physical Exam Physical Exam: On exam she is good strength testing lower extremities. She is very hesitant to bend forward and having inspect her lumbar spine. Do not appreciate any abnormal skin markings. She does complain of significant discomfort with motion. Results & Data ([facility]) Vital Signs (Past 12 Hours) Vital Signs Temp Pulse Pulse Resp BP Pulse Ox 10/30/20 08:14 36.8 C 88 18 180/69 H 95 10/30/20 08:00 86 10/30/20 05:17 100 H 10/29/20 22:38 36.8 C 115 H 20 185/68 H 92 (1) Closed compression fracture of L1 vertebra Encounter type: initial encounter Qualified Code(s): S32.010A - Wedge compression fracture of first lumbar vertebra, initial encounter for closed fracture
[2020-10-30] MEDS: cefTRIAXone SODIUM 1,000 MG in DEXTROSE 5% 50 ML IV SCH (10:35)
[2020-10-30] MEDS: POLYETHYLENE (MIRALAX) 17 GM PACK PO SCH (10:36)
[2020-10-30] MEDS: ACETAMINOPHEN 325 MG TAB PO SCH ×3 (10:36→20:09)
[2020-10-30] MEDS: LIDOCAINE 5% 1 PATCH TD SCH (12:00)
[2020-10-30] MEDS: ASPIRIN 81 MG ECTAB PO SCH (12:02)
[2020-10-30] MEDS: DOCUSATE SODIUM/SENNA 50/8.6MG TAB PO SCH ×2 (12:02→20:09)
[2020-10-30] MEDS: ENOXAPARIN INJ 30 MG/0.3 ML SYR SQ SCH (20:09)
--- NOTE | 2020-10-30 22:15 | Hospitalist Progress Note ---
Date of Service October 30, 2020 Assessment & Plan (1) Stroke: CT head showed apparent acute vs subacute ischemic stroke right posterior cerebellum (as well as small vessel disease and old right basal ganglia lacunar infarct) Carotid duplex showed 50-69% stenosis of right ICA and 50% stenosis left ICA. Echo did not show any mural thrombi. LDL-c = 120. Cardiac rhythm on telemetry SR with PAC's. PT / OT DENTAL PRACTITIONER. Neuro consulted. Unable to get MRI due to pacemaker. Rx with aspirin, high-intensity statin. Continue cardiac monitoring. (2) Bilateral carotid artery stenosis: Carotid duplex showed 50-69% stenosis of right ICA and 50% stenosis left ICA. Continue aspirin and statin. (3) Coronary artery disease: Denies anginal symptoms. Currently receiving aspirin and statin. Permissive hypertension in light of acute vs subacute stroke. Consider adding beta joy in 1-2 days. (4) HTN (hypertension): Permissive hypertension in light of acute vs subacute stroke. Consider adding beta joy in 1-2 days. (5) Dehydration: BUN elevated at time of admission. Received IV fluids. Follow. 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 Apparently not on any therapy at this time. Hgb A1c 6.4. Random blood sugars as high as 209. Insulin coverage as necessary. (7) Abnormal urinalysis: UA showed WBC's, 1+ leuk esterase, 1+ bacteria, many epithelial cells. Possible UTI (present on admission). Urine culture pending. Continue ceftriaxone. (8) Closed compression fracture of L1 vertebra: Seen by Ortho. Conservative management recommended. (9) Osteoporosis: L1 compression fracture. 25-OH vitamin D level = 15.9. Will need calcium + vitamin D supplementation. (10) Altered mental status: Confused, ? more than baseline. Apparent underlying dementia per history provided by son. Possible metabolic encephalopathy secondary to dehydration or possible UTI. Monitor. (11) Dementia: Reported cognitive decline over past several months. Monitor for delirium. (12) Ambulatory dysfunction: Possible fall at home. PT / OT. Fall precautions. (13) DVT prophylaxis: SQ enoxaparin. (14) Discharge planning issues: Discharge disposition to be determined. May need skilled care or long-term placement for safety. Family Medicine follow-up with Dr. Pino. Admission and Anticipated Discharge Date Admission Date: October 29, 2020 Subjective Recheck for lumbar compression fractures and other problems. Patient seen in their room around 1620. Confused. Not always cooperative with staff. Removed telemetry pack. Continues to have severe back pain. Review of Systems: Constitutional- no fever. Cardiac- no chest pain. Pulmonary- no cough or SOB. GI- no nausea, vomiting, diarrhea, melena, hematochezia. - no urinary symptoms. Otherwise, as noted above. Physical Exam Constitutional: no acute distress Eyes: + anicteric sclerae Respiratory: normal respiratory effort, lungs clear to auscultation Cardiovascular: Rate/Rhythm: regular rate and regular rhythm Vessels: no JVD Extremities: no calf tenderness and no edema Gastrointestinal (Abdomen): normal bowel sounds, soft, nontender, no hepatosplenomegaly Musculoskeletal: Spine: + pain with thoraco-lumbar ROM Extremities: no cyanosis Skin: no rashes, warm and dry Psychiatric: Orientation: alert; + not oriented x 3 Affect: + depressed affect and + anxious affect Thought Process: + tangential thought process and + perseveration Results & Data Results & Data ([facility]) Vital Signs (Past 12 Hours) Vital Signs Temp Pulse Resp BP BP Pulse Ox 10/30/20 19:12 36.6 C 84 17 167/83 H 95 10/30/20 15:47 36.7 C 82 18 156/81 H 94 10/30/20 11:02 37.0 C 94 H 20 171/76 H 91 Laboratory Results Laboratory Results - last 24 hr 10/30/20 10/30/20 10/30/20 07:36 08:05 08:05 WBC RBC Hgb Hct MCV MCH MCHC RDW Std Deviation RDW Coeff of Leny Plt Count MPV Immature Gran % (Auto) Neut % (Auto) Lymph % (Auto) [place] % (Auto) Eos % (Auto) Baso % (Auto) Neut # (Auto) Lymph # (Auto) [place] # (Auto) Eos # (Auto) Baso # (Auto) Immature Gran # (Auto) Sodium 144 Potassium 3.9 Chloride 108 H Carbon Dioxide 30 Anion Gap 6.0 BUN 19 H Creatinine 0.60 Est Cr Clr Drug Dosing 59.8 Est GFR ( Amer) 97.0 Est GFR (Non-Af Amer) 83.7 BUN/Creatinine Ratio 31.9 H Glucose 97 POC Glucose 102 H Estimat Average Glucose Hemoglobin A1c Calcium 9.1 Triglycerides 89 Cholesterol 182 LDL Cholesterol, Calc 120 VLDL Cholesterol, Calc 18 HDL Cholesterol 44 Cholesterol/HDL Ratio 4 Vitamin B1 Vitamin B12 25-OH Vitamin D Total Folate > 20.00 TSH 1.180 RPR 10/30/20 10/30/20 10/30/20 08:05 08:05 08:05 WBC 8.46 RBC 4.14 L Hgb 13.1 Hct 39.8 MCV 96.1 MCH 31.6 MCHC 32.9 RDW Std Deviation 47.7 H RDW Coeff of Leny 13.5 Plt Count 282 MPV 10.3 Immature Gran % (Auto) 0.4 Neut % (Auto) 74.7 Lymph % (Auto) 12.6 [place] % (Auto) 9.9 Eos % (Auto) 1.9 Baso % (Auto) 0.5 Neut # (Auto) 6.32 Lymph # (Auto) 1.07 L [place] # (Auto) 0.84 H Eos # (Auto) 0.16 Baso # (Auto) 0.04 Immature Gran # (Auto) 0.03 H Sodium Potassium Chloride Carbon Dioxide Anion Gap BUN Creatinine Est Cr Clr Drug Dosing Est GFR ( Amer) Est GFR (Non-Af Amer) BUN/Creatinine Ratio Glucose POC Glucose Estimat Average Glucose 137 Hemoglobin A1c 6.4 H Calcium Triglycerides Cholesterol LDL Cholesterol, Calc VLDL Cholesterol, Calc HDL Cholesterol Cholesterol/HDL Ratio Vitamin B1 Pending Vitamin B12 25-OH Vitamin D Total Folate TSH RPR 10/30/20 10/30/20 10/30/20 08:05 08:05 08:05 WBC RBC Hgb Hct MCV MCH MCHC RDW Std Deviation RDW Coeff of Leny Plt Count MPV Immature Gran % (Auto) Neut % (Auto) Lymph % (Auto) [place] % (Auto) Eos % (Auto) Baso % (Auto) Neut # (Auto) Lymph # (Auto) [place] # (Auto) Eos # (Auto) Baso # (Auto) Immature Gran # (Auto) Sodium Potassium Chloride Carbon Dioxide Anion Gap BUN Creatinine Est Cr Clr Drug Dosing Est GFR ( Amer) Est GFR (Non-Af Amer) BUN/Creatinine Ratio Glucose POC Glucose Estimat Average Glucose Hemoglobin A1c Calcium Triglycerides Cholesterol LDL Cholesterol, Calc VLDL Cholesterol, Calc HDL Cholesterol Cholesterol/HDL Ratio Vitamin B1 Vitamin B12 1746 H 25-OH Vitamin D Total 15.9 L Folate TSH RPR Pending 10/30/20 10/30/20 10/30/20 11:24 16:26 20:44 WBC RBC Hgb Hct MCV MCH MCHC RDW Std Deviation RDW Coeff of Leny Plt Count MPV Immature Gran % (Auto) Neut % (Auto) Lymph % (Auto) [place] % (Auto) Eos % (Auto) Baso % (Auto) Neut # (Auto) Lymph # (Auto) [place] # (Auto) Eos # (Auto) Baso # (Auto) Immature Gran # (Auto) Sodium Potassium Chloride Carbon Dioxide Anion Gap BUN Creatinine Est Cr Clr Drug Dosing Est GFR ( Amer) Est GFR (Non-Af Amer) BUN/Creatinine Ratio Glucose POC Glucose 209 H 109 H 136 H Estimat Average Glucose Hemoglobin A1c Calcium Triglycerides Cholesterol LDL Cholesterol, Calc VLDL Cholesterol, Calc HDL Cholesterol Cholesterol/HDL Ratio Vitamin B1 Vitamin B12 25-OH Vitamin D Total Folate TSH RPR (1) Closed compression fracture of L1 vertebra Encounter type: initial encounter Qualified Code(s): S32.010A - Wedge compression fracture of first lumbar vertebra, initial encounter for closed fracture
[2020-10-31] MEDS: cefTRIAXone SODIUM 1,000 MG in DEXTROSE 5% 50 ML IV SCH (07:48)
[2020-10-31] MEDS: ASPIRIN 81 MG ECTAB PO SCH (07:49)
[2020-10-31] MEDS: LIDOCAINE 5% 1 PATCH TD SCH (07:49)
[2020-10-31] MEDS: DOCUSATE SODIUM/SENNA 50/8.6MG TAB PO SCH ×2 (07:55→19:17)
[2020-10-31] MEDS: POLYETHYLENE (MIRALAX) 17 GM PACK PO SCH (07:56)
[2020-10-31] MEDS: ROSUVASTATIN CALCIUM 20 MG TAB PO SCH (07:56)
[2020-10-31] MEDS: ACETAMINOPHEN 325 MG TAB PO SCH ×3 (07:56→19:21)
[2020-10-31] MEDS ORDERED: ERGOCALCIFEROL 50,000 UNITS 1250 MCG CAP PO SCH (09:00)
--- NOTE | 2020-10-31 16:46 | Hospitalist Progress Note ---
Date of Service October 31, 2020 Assessment & Plan (1) Stroke: CT head showed apparent acute vs subacute ischemic stroke right posterior cerebellum (as well as small vessel disease and old right basal ganglia lacunar infarct) Carotid duplex showed 50-69% stenosis of right ICA and 50% stenosis left ICA. Echo did not show any mural thrombi. LDL-c = 120. Cardiac rhythm on telemetry SR with PAC's (not wearing telemetry pack much of the time). PT / OT / WEB MARKETING COORDINATOR consulted. PT eval- 1 person assist, 6 clicks mobility score 44% functional loss. OT eval- poor balance, 6 clicks ADL's 75% functional loss. WEB MARKETING COORDINATOR eval- pt not cooperative with assessment. Neuro consulted. Unable to get MRI due to pacemaker. Rx with aspirin, high-intensity statin. Continue cardiac monitoring as patient allows. (2) Bilateral carotid artery stenosis: Carotid duplex showed 50-69% stenosis of right ICA and 50% stenosis left ICA. Continue aspirin and statin. (3) Coronary artery disease: Denies anginal symptoms. Currently receiving aspirin and statin. Initially allowed permissive hypertension in light of acute vs subacute stroke. Start low dose beta joy. (4) HTN (hypertension): Initially allowed permissive hypertension in light of acute vs subacute stroke. Start low dose beta joy. (5) Dehydration: BUN elevated at time of admission. Received IV fluids. Follow. 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 Apparently not on any therapy at this time. Hgb A1c 6.4. Random blood sugars as high as 209. Tight control not indicated given advanced age and cormorbidities. Insulin coverage as necessary. (7) Abnormal urinalysis: UA showed WBC's, 1+ leuk esterase, 1+ bacteria, many epithelial cells. Possible UTI (present on admission). Urine culture pending. Continue ceftriaxone. (8) Closed compression fracture of L1 vertebra: Seen by Ortho. Conservative management recommended. Continue analgesics, back brace, PT, OT. (9) Osteoporosis: L1 compression fracture. 25-OH vitamin D level = 15.9. Will need calcium + vitamin D supplementation. (10) Altered mental status: Confused, ? more than baseline. Underlying dementia per history provided by son (onset years ago, worse over last 2 months). Possible metabolic encephalopathy secondary to dehydration or possible UTI. Monitor. (11) Dementia: Reported cognitive decline over past several months. Monitor for delirium. (12) Ambulatory dysfunction: Suspected fall at home. PT / OT. Fall precautions. (13) DVT prophylaxis: SQ enoxaparin. (14) Discharge planning issues: Discharge disposition to be determined. May need skilled care or long-term placement for safety. Family Medicine follow-up with Dr. Pino. Contact: Dann (son) [phone] Given update today by phone. Admission and Anticipated Discharge Date Admission Date: October 29, 2020 Subjective Recheck for lumbar compression fractures and other problems. Patient seen in their room around 0950. Back pain seems to be better. Confused. Won't keep telemetry pack on most of the time. Does not like to be bothered by staff for routine care. Review of Systems: very limited; pt inclined not to answer questions this morning Constitutional- no fever. Cardiac- Pulmonary- GI- passed form stool this morning. - Otherwise, as noted above. Physical Exam Physical Exam: [patient refused complete exam] Constitutional: no acute distress Eyes: + anicteric sclerae Cardiovascular: Extremities: no edema Musculoskeletal: Spine: + kyphosis Extremities: no cyanosis Gait: + abnormal gait (slow / unsteady with walker) Skin: no rashes, warm and dry Psychiatric: Orientation: alert; + not oriented x 3 Thought Content: + par anoid and + delusions Insight: + poor insight Judgement: + poor judgement Results & Data Results & Data ([facility]) Vital Signs (Past 12 Hours) Vital Signs Temp Pulse Resp BP Pulse Ox 10/31/20 07:42 36.8 C 99 H 18 195/72 H 95 Laboratory Results Laboratory Results - last 24 hr 10/30/20 10/31/20 20:44 11:30 POC Glucose 136 H 160 H (1) Closed compression fracture of L1 vertebra Encounter type: initial encounter Qualified Code(s): S32.010A - Wedge compression fracture of first lumbar vertebra, initial encounter for closed fracture
[2020-10-31] MEDS: ENOXAPARIN INJ 30 MG/0.3 ML SYR SQ SCH (19:17)
[2020-10-31] MEDS: DICLOFENAC SOD 1% GEL 100 GM TUBE EXT PRN (19:21)
[2020-11-01] MEDS: LIDOCAINE 5% 1 PATCH TD SCH (09:09)
[2020-11-01] MEDS: ROSUVASTATIN CALCIUM 20 MG TAB PO SCH (09:10)
[2020-11-01] MEDS: ASPIRIN 81 MG ECTAB PO SCH (09:10)
[2020-11-01] MEDS: METOPROLOL SUCC 25MG EXT REL TAB PO SCH (09:10)
[2020-11-01] MEDS: DOCUSATE SODIUM/SENNA 50/8.6MG TAB PO SCH ×2 (09:10→19:52)
[2020-11-01] MEDS: POLYETHYLENE (MIRALAX) 17 GM PACK PO SCH (09:11)
[2020-11-01] MEDS: ACETAMINOPHEN 325 MG TAB PO SCH (09:13)
[2020-11-01 10:13] LABS: BUN Creatinine Ratio 22.1 (10-20); Calcium 9.5 mg/dl (8.5-10.1); Est GFR (African American) 101.1; Est GFR (Non-African American) 87.2; Potassium 3.6 mmol/L (3.5-5.1)
[2020-11-01] MEDS: ACETAMINOPHEN 325 MG TAB PO PRN (19:51)
--- NOTE | 2020-11-01 21:52 | Hospitalist Progress Note ---
Date of Service November 01, 2020 Assessment & Plan (1) Stroke: CT head showed apparent acute vs subacute ischemic stroke right posterior cerebellum (as well as small vessel disease and old right basal ganglia lacunar infarct) Carotid duplex showed 50-69% stenosis of right ICA and 50% stenosis left ICA. Echo did not show any mural thrombi. LDL-c = 120. Cardiac rhythm on telemetry SR with PAC's (refused to wear telemetry pack most of the time). PT / OT / SEWING MACHINE REPAIRER consulted. PT eval- 1 person assist, 6 clicks mobility score 44% functional loss. OT eval- poor balance, 6 clicks ADL's 75% functional loss. SEWING MACHINE REPAIRER eval- pt not cooperative with assessment. Neuro consulted. Unable to get MRI due to pacemaker. Rx with aspirin, high-intensity statin. (2) Bilateral carotid artery stenosis: Carotid duplex showed 50-69% stenosis of right ICA and 50% stenosis left ICA. Continue aspirin and statin. (3) Coronary artery disease: Denies anginal symptoms. Currently receiving aspirin and statin. Initially allowed permissive hypertension in light of acute vs subacute stroke. Started on metoprolol succinate 25 mg daily. (4) HTN (hypertension): Initially allowed permissive hypertension in light of acute vs subacute stroke. Started on metoprolol succinate 25 mg daily. (5) Dehydration: BUN elevated at time of admission. Received IV fluids. Follow. 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 Apparently not on any therapy at this time. Hgb A1c 6.4. Random blood sugars as high as 209. Tight control not indicated given advanced age and cormorbidities. Insulin coverage as necessary. Blood sugar this morning 129. (7) Abnormal urinalysis: UA showed WBC's, 1+ leuk esterase, 1+ bacteria, many epithelial cells. Possible UTI (present on admission). Received IV ceftriaxone empirically. Urine culture grew more than 3 types of organisms, probable mixed skin jim. Discontinue ceftriaxone. (8) Closed compression fracture of L1 vertebra: Seen by Ortho. Conservative management recommended. Continue analgesics, back brace, PT, OT. (9) Osteoporosis: L1 compression fracture. 25-OH vitamin D level = 15.9. Will need calcium + vitamin D supplementation. (10) Altered mental status: Confused, ? more than baseline. Underlying dementia per history provided by son (onset years ago, worse over last 2 months). Possible metabolic encephalopathy (delirium) secondary to dehydration, pain, stroke. Monitor. (11) Dementia: Reported cognitive decline over past several months. Monitor for delirium. (12) Ambulatory dysfunction: Suspected fall at home. PT / OT. Fall precautions. (13) DVT prophylaxis: SQ enoxaparin. (14) Discharge planning issues: Discharge disposition to be determined. May need skilled care or long-term placement for safety. Family Medicine follow-up with Dr. Pino. Contact: Dann (son) [phone] Given update 10/31 by phone. Admission and Anticipated Discharge Date Admission Date: October 29, 2020 Subjective Recheck for lumbar compression fractures and other problems. Patient seen in their room around 1310. Still confused, but less agitated. Refusing to wear telemetry pack. Continues to have significant back pain. Ambulatory with walker and assistance. Review of Systems: Constitutional- no fever. Cardiac- no CP. Pulmonary- no cough or SOB. GI- no nausea or vomiting. - no urinary symptoms. Otherwise, as noted above. Physical Exam Constitutional: no acute distress Eyes: + anicteric sclerae Respiratory: normal respiratory effort, lungs clear to auscultation Cardiovascular: Rate/Rhythm: regular rate and regular rhythm Vessels: no JVD Extremities: no edema Gastrointestinal (Abdomen): normal bowel sounds, soft, nontender, no hepatosplenomegaly Musculoskeletal: Spine: + kyphosis Extremities: no cyanosis Skin: no rashes, warm and dry Psychiatric: Orientation: alert; + not oriented x 3 Results & Data Results & Data ([facility]) Vital Signs (Past 12 Hours) Vital Signs Temp Pulse Resp BP Pulse Ox 11/01/20 16:04 36.6 C 84 18 166/78 H 95 Laboratory Results Laboratory Results - last 24 hr 11/01/20 09:11 Sodium 140 Potassium 3.6 Chloride 103 Carbon Dioxide 29 Anion Gap 8.0 BUN 12 Creatinine 0.53 L Est Cr Clr Drug Dosing 68.0 Est GFR ( Amer) 101.1 Est GFR (Non-Af Amer) 87.2 BUN/Creatinine Ratio 22.1 H Glucose 129 H Calcium 9.5 (1) Closed compression fracture of L1 vertebra Encounter type: initial encounter Qualified Code(s): S32.010A - Wedge compression fracture of first lumbar vertebra, initial encounter for closed fracture
[2020-11-01] MEDS: ENOXAPARIN INJ 30 MG/0.3 ML SYR SQ SCH (22:50)
[2020-11-02] MEDS: ACETAMINOPHEN 325 MG TAB PO PRN ×3 (01:04→20:53)
[2020-11-02] MEDS: DICLOFENAC SOD 1% GEL 100 GM TUBE EXT PRN ×2 (01:05→20:54)
[2020-11-02] MEDS: LIDOCAINE 5% 1 PATCH TD SCH (07:34)
[2020-11-02] MEDS: DOCUSATE SODIUM/SENNA 50/8.6MG TAB PO SCH ×2 (07:36→20:49)
[2020-11-02] MEDS: ASPIRIN 81 MG ECTAB PO SCH (07:37)
[2020-11-02] MEDS: ROSUVASTATIN CALCIUM 20 MG TAB PO SCH (07:38)
[2020-11-02] MEDS: POLYETHYLENE (MIRALAX) 17 GM PACK PO SCH (07:39)
[2020-11-02] MEDS: METOPROLOL SUCC 25MG EXT REL TAB PO SCH (07:39)
--- NOTE | 2020-11-02 12:45 | Hospitalist Progress Note ---
Date of Service November 02, 2020 Assessment & Plan (1) Stroke: CT head showed apparent acute vs subacute ischemic stroke right posterior cerebellum (as well as small vessel disease and old right basal ganglia lacunar infarct) Carotid duplex showed 50-69% stenosis of right ICA and 50% stenosis left ICA. Echo did not show any mural thrombi. LDL-c = 120. Cardiac rhythm on telemetry SR with PAC's (refused to wear telemetry pack most of the time). PT / OT / SHRINKING MACHINE OPERATOR consulted. PT eval- 1 person assist, 6 clicks mobility score 44% functional loss. OT eval- poor balance, 6 clicks ADL's 75% functional loss. SHRINKING MACHINE OPERATOR eval- pt not cooperative with assessment. Neuro consulted. Unable to get MRI due to pacemaker. Continue therapies. Continue Rx with aspirin, high-intensity statin. (2) Bilateral carotid artery stenosis: Carotid duplex showed 50-69% stenosis of right ICA and 50% stenosis left ICA. Continue aspirin and statin. (3) Coronary artery disease: Denies anginal symptoms. Currently receiving aspirin and statin. Initially allowed permissive hypertension in light of acute vs subacute stroke. Started on metoprolol succinate 25 mg daily. (4) HTN (hypertension): Initially allowed permissive hypertension in light of acute vs subacute stroke. Started on metoprolol succinate 25 mg daily. Blood pressures improved. (5) Dehydration: BUN elevated at time of admission. Received IV fluids. Follow. 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 Apparently not on any therapy at this time. Hgb A1c 6.4. Random blood sugars as high as 209. Tight control not indicated given advanced age and cormorbidities. Insulin coverage as necessary. Blood sugar 11/01 = 129. (7) Abnormal urinalysis: UA showed WBC's, 1+ leuk esterase, 1+ bacteria, many epithelial cells. Possible UTI (present on admission). Received IV ceftriaxone empirically. Urine culture grew more than 3 types of organisms, probable mixed skin jim. Discontinued ceftriaxone. (8) Closed compression fracture of L1 vertebra: Seen by Ortho. Conservative management recommended. Continue analgesics, back brace, PT, OT. (9) Osteoporosis: L1 compression fracture. 25-OH vitamin D level = 15.9. Will need calcium + vitamin D supplementation. (10) Altered mental status: Confused, ? more than baseline. Underlying dementia per history provided by son (onset years ago, worse over last 2 months). Possible metabolic encephalopathy (delirium) secondary to dehydration, pain, stroke. Monitor. (11) Dementia: Reported cognitive decline over past several months. Monitor for delirium. (12) Ambulatory dysfunction: Suspected fall at home. PT / OT. Fall precautions. (13) Renal lesion: CT 10/29/20 - 2 cm lesion lower pole RT kidney. Follow-up imaging by US if patient able to tolerate study. (14) DVT prophylaxis: SQ enoxaparin. (15) Discharge planning issues: Discharge disposition to be determined. May need skilled care or long-term placement for safety. Family Medicine follow-up with Dr. Pino. Contact: Dann (son) [phone] Given update 10/31 by phone. Admission and Anticipated Discharge Date Admission Date: October 29, 2020 Subjective Recheck for lumbar compression fractures and other problems. Patient seen in their room around 1020. Continues to have severe back pain. No new complaints. Review of Systems: Constitutional- no fever. Cardiac- no CP. Pulmonary- no cough or SOB. GI- lasted reported stool 10/31; no nausea or vomiting. - no urinary symptoms. Otherwise, as noted above. Physical Exam Constitutional: no acute distress Eyes: + anicteric sclerae Respiratory: normal respiratory effort, lungs clear to auscultation Cardiovascular: Rate/Rhythm: regular rate and regular rhythm Vessels: no JVD Extremities: no edema Gastrointestinal (Abdomen): normal bowel sounds, soft, nontender, no hepatosplenomegaly Musculoskeletal: Spine: + kyphosis Extremities: no cyanosis Skin: no rashes, warm and dry Psychiatric: Orientation: alert; + not oriented x 3 Results & Data Results & Data ([facility]) Vital Signs (Past 12 Hours) Vital Signs Temp Pulse Resp BP Pulse Ox 11/02/20 08:33 36.9 C 70 18 161/76 H 94 Laboratory Results 11/01/20 09:11 (1) Closed compression fracture of L1 vertebra Encounter type: initial encounter Qualified Code(s): S32.010A - Wedge compression fracture of first lumbar vertebra, initial encounter for closed fracture
[2020-11-02] MEDS: ENOXAPARIN INJ 30 MG/0.3 ML SYR SQ SCH (22:39)
[2020-11-03] MEDS: DICLOFENAC SOD 1% GEL 100 GM TUBE EXT PRN ×2 (04:07→14:32)
[2020-11-03] MEDS: ACETAMINOPHEN 325 MG TAB PO PRN ×2 (06:11→15:09)
[2020-11-03 06:26] LABS: Hematocrit (blood only) 40.9 % (37-47); Hemoglobin 13.6 g/dL (12.0-16.0); Mean Corpuscular Hemoglobin 31.6 pg (25-34); Mean Corpuscular Hgb Conc 33.3 g/dL (32-36); Mean Corpuscular Volume 94.9 fL (80-100); Mean Platelet Volume 11.1 fL (7.4-10.4); Platelet Count 340 K/uL (130-400); RDW Coefficient of Variation 13.7 % (11.5-14.5); RDW Standard Deviation 47.4 fL (36.4-46.3); Red Blood Count 4.31 M/uL (4.2-5.4)
[2020-11-03 06:47] LABS: Calcium 9.2 mg/dl (8.5-10.1); Creatinine Clr Calc Pharmacy 59.1 ml/min; Est GFR (African American) 96.5; Est GFR (Non-African American) 83.2; Potassium 3.6 mmol/L (3.5-5.1)
[2020-11-03] MEDS: ROSUVASTATIN CALCIUM 20 MG TAB PO SCH (08:23)
[2020-11-03] MEDS: ASPIRIN 81 MG ECTAB PO SCH (08:23)
[2020-11-03] MEDS: DOCUSATE SODIUM/SENNA 50/8.6MG TAB PO SCH ×2 (08:23→20:27)
[2020-11-03] MEDS: LIDOCAINE 5% 1 PATCH TD SCH (08:24)
[2020-11-03] MEDS: METOPROLOL SUCC 25MG EXT REL TAB PO SCH (08:24)
[2020-11-03] MEDS: POLYETHYLENE (MIRALAX) 17 GM PACK PO SCH (08:28)
--- NOTE | 2020-11-03 10:00 | Ultrasound Report ---
RENAL ULTRASOUND HISTORY: RT kidney lesion noted on CT 10/29/20 COMPARISON: Abdomen and pelvis CT 10/29/2020. FINDINGS: Right kidney: 9.1 cm. There are 2 adjacent lesions seen within the lower pole measuring 2.5 and 1.3 c m. Both these appear to be anechoic with posterior acoustic enhancement. Therefore, these favor simpl e cysts.. No hydronephrosis. Normal corticomedullary differentiation and cortical thickness. Left kidney: 9.1 cm. No hydronephrosis. Normal corticomedullary differentiation and cortical thicknes s. Bladder: No bladder wall thickening. The bilateral ureteral jets were identified. IMPRESSION: Right renal lesions measuring 2.5 and 1.3 cm. These appear to represent simple cysts. No definite cherelle id renal lesions identified. ACT 112: Negative or not required by law. Electronically signed by: Mane Garrido M.D. 11/03/2020 9:58 AM
[2020-11-03] MEDS: ENOXAPARIN INJ 30 MG/0.3 ML SYR SQ SCH (20:27)
--- NOTE | 2020-11-03 21:11 | Hospitalist Progress Note ---
Date of Service November 03, 2020 Assessment & Plan (1) Stroke: CT head showed apparent acute vs subacute ischemic stroke right posterior cerebellum (as well as small vessel disease and old right basal ganglia lacunar infarct) Carotid duplex showed 50-69% stenosis of right ICA and 50% stenosis left ICA. Echo did not show any mural thrombi. LDL-c = 120. Cardiac rhythm on telemetry SR with PAC's (refused to wear telemetry pack most of the time). PT / OT / MANAGER SPRING consulted. PT eval- 1 person assist, 6 clicks mobility score 44% functional loss. OT eval- poor balance, 6 clicks ADL's 75% functional loss. MANAGER SPRING eval- pt not cooperative with assessment. Neuro consulted. Unable to get MRI due to pacemaker. Continue therapies. Continue Rx with aspirin, high-intensity statin. (2) Bilateral carotid artery stenosis: Carotid duplex showed 50-69% stenosis of right ICA and 50% stenosis left ICA. Continue aspirin and statin. (3) Coronary artery disease: Denies anginal symptoms. Currently receiving aspirin and statin. Initially allowed permissive hypertension in light of acute vs subacute stroke. Started on metoprolol succinate 25 mg daily. (4) HTN (hypertension): Initially allowed permissive hypertension in light of acute vs subacute stroke. Started on metoprolol succinate 25 mg daily. Blood pressures improved. (5) Dehydration: BUN elevated at time of admission. Received IV fluids. Follow. 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 Apparently not on any therapy at this time. Hgb A1c 6.4. Random blood sugars as high as 209. Tight control not indicated given advanced age and cormorbidities. Insulin coverage as necessary. Blood sugar 11/01 = 113. (7) Abnormal urinalysis: UA showed WBC's, 1+ leuk esterase, 1+ bacteria, many epithelial cells. Possible UTI (present on admission). Received IV ceftriaxone empirically. Urine culture grew more than 3 types of organisms, probable mixed skin jim. Discontinued ceftriaxone. (8) Closed compression fracture of L1 vertebra: Seen by Ortho. Conservative management recommended. Continue analgesics, back brace, PT, OT. (9) Osteoporosis: L1 compression fracture. 25-OH vitamin D level = 15.9. Will need calcium + vitamin D supplementation. (10) Altered mental status: Confused, ? more than baseline. Underlying dementia per history provided by son (onset years ago, worse over last 2 months). Possible metabolic encephalopathy (delirium) secondary to dehydration, pain, stroke. Monitor. (11) Dementia: Reported cognitive decline over past several months. Monitor for delirium. (12) Ambulatory dysfunction: Suspected fall at home. PT / OT. Fall precautions. (13) Renal lesion: CT 10/29/20 - 2 cm lesion lower pole RT kidney. Renal US 11/03 - 2 adjacent lesions right kidney, largest 2.5 cm, probable simple cysts. (14) DVT prophylaxis: SQ enoxaparin. (15) Discharge planning issues: Anticipated need skilled care or long-term placement for safety. Family Medicine follow-up with Dr. Pino. Contact: Dann (son) [phone] Given update 10/31 by phone. Admission and Anticipated Discharge Date Admission Date: October 29, 2020 Subjective Recheck for lumbar compression fractures and other problems. Patient seen in their room around 1340. Continues to have severe back pain. No new complaints. Less agitated, but still distrustful. Review of Systems: Constitutional- no fever. Cardiac- no CP. Pulmonary- no cough or SOB. GI- formed stool this morning; no nausea or vomiting. - no urinary symptoms. Otherwise, as noted above. Physical Exam Physical Exam: [patient refused complete exam] Constitutional: no acute distress Eyes: + anicteric sclerae Respiratory: normal respiratory effort, lungs clear to auscultation Cardiovascular: Rate/Rhythm: regular rate and regular rhythm Vessels: no JVD Extremities: no edema Gastrointestinal (Abdomen): normal bowel sounds, soft, nontender, no hepatosp lenomegaly Musculoskeletal: Spine: + kyphosis Extremities: no cyanosis Skin: no rashes, warm and dry Psychiatric: Orientation: alert; + not oriented x 3 Affect: + depressed affect and + anxious affect Thought Content: + delusions Insight: + poor insight Results & Data Results & Data ([facility]) Vital Signs (Past 12 Hours) Vital Signs Temp Pulse Resp BP Pulse Ox 11/03/20 15:27 37.1 C 76 18 147/76 H 96 Laboratory Results 11/03/20 06:01 11/03/20 06:01 (1) Closed compression fracture of L1 vertebra Encounter type: initial encounter Qualified Code(s): S32.010A - Wedge c ompression fracture of first lumbar vertebra, initial encounter for closed fracture
[2020-11-04] MEDS: ACETAMINOPHEN 325 MG TAB PO PRN ×3 (01:32→13:59)
[2020-11-04] MEDS: METOPROLOL SUCC 25MG EXT REL TAB PO SCH (09:19)
[2020-11-04] MEDS: ROSUVASTATIN CALCIUM 20 MG TAB PO SCH (09:20)
[2020-11-04] MEDS: LIDOCAINE 5% 1 PATCH TD SCH (09:20)
[2020-11-04] MEDS: ASPIRIN 81 MG ECTAB PO SCH (09:20)
[2020-11-04] MEDS: DOCUSATE SODIUM/SENNA 50/8.6MG TAB PO SCH ×2 (09:22→21:15)
[2020-11-04] MEDS: POLYETHYLENE (MIRALAX) 17 GM PACK PO SCH (09:22)
--- NOTE | 2020-11-04 19:56 | Hospitalist Progress Note ---
Date of Service November 04, 2020 Assessment & Plan (1) Stroke: CT head showed apparent acute vs subacute ischemic stroke right posterior cerebellum (as well as small vessel disease and old right basal ganglia lacunar infarct) Carotid duplex showed 50-69% stenosis of right ICA and 50% stenosis left ICA. Echo did not show any mural thrombi. LDL: 120. Telemetry SR with PAC's--Refused monitor on most occasions PT/OT and Speech eval completed Neurology consulted. Unable to get MRI due to pacemaker. Continue Aspirin, statin. Needs follow-up with neurology in 4 to 6 weeks upon discharge My need ZIO patch as outpatient (2) Bilateral carotid artery stenosis: Carotid duplex showed 50-69% stenosis of right ICA and 50% stenosis left ICA. Continue aspirin and statin. (3) Coronary artery disease: Continue aspirin and statin. Started on metoprolol succinate 25 mg daily. (4) HTN (hypertension): Continue metoprolol succinate 25 mg daily. Monitor (5) Dehydration: Received IV fluids. Follow. 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 No Tight glycemic control given advanced age and comorbidities. (7) Abnormal urinalysis: UTI ruled out Urine culture grew more than 3 types of organisms, probable mixed skin jim. Discontinued ceftriaxone. (8) Closed compression fracture of L1 vertebra: Appreciate Orthopedics Input Conservative management recommended. Continue analgesics, back brace, PT, OT. (9) Osteoporosis: L1 compression fracture. 25-OH vitamin D level = 15.9. Continue Calcium, Vitamin D supplementation. (10) Altered mental status: Confused, Unknown baseline. Underlying dementia (onset years ago, worse over last 2 months as per family). Possible metabolic encephalopathy/delirium. Monitor. (11) Dementia: Reported cognitive decline over past several months. Monitor for delirium. (12) Ambulatory dysfunction: Suspected fall at home. PT / OT. Fall precautions. (13) Renal lesion: CT 10/29/20 - 2 cm lesion lower pole RT kidney. Renal US 11/03 - 2 adjacent lesions right kidney, largest 2.5 cm, probable simple cysts. (14) DVT prophylaxis: SQ Lovenox (15) Discharge planning issues: SNF as able Family Medicine follow-up with Dr. Pino. Family Contact: Dann (son) [phone] Admission and Anticipated Discharge Date Admission Date: October 29, 2020 Subjective Patient seen and examined at bedside Back pain is controlled Had BM today Denies chest pain, dyspnea, dizziness, nausea, abdominal pain Offers no other complaints Review of Systems Review of Systems: All systems reviewed & are unremarkable except as noted in HPI & below Physical Exam Physical Exam: Physical Exam: Vitals signs as noted above General Appearance:Moderately built and nourished, no apparent distress Head: normocephalic, Atraumatic Eyes: normal inspection, EOMI Neck: supple, Trachea midline Respiratory/Chest: Normal breath sounds, CTA, No accessory muscle use Cardiovascular: S1, S2, No murmur Abdomen/GI:Soft, Non tender, Bowel sounds present Extremities/Musculoskelatal:normal inspection, no edema Neurologic/Psych:AA, grossly no focal neurological deficits, Poor Insight Skin: normal color, warm Results & Data Results & Data ([facility]) Vital Signs (Past 12 Hours) Vital Signs Temp Pulse Resp BP Pulse Ox 11/04/20 15:13 36.7 C 84 18 145/71 H 95 (1) Closed compression fracture of L1 vertebra Encounter type: initial encounter Qualified Code(s): S32.010A - Wedge compression fracture of first lumbar vertebra, initial encounter for closed fracture
[2020-11-04] MEDS: ENOXAPARIN INJ 30 MG/0.3 ML SYR SQ SCH (22:00)
[2020-11-05] MEDS: ACETAMINOPHEN 325 MG TAB PO PRN ×3 (03:34→17:33)
[2020-11-05] MEDS: POLYETHYLENE (MIRALAX) 17 GM PACK PO SCH (07:10)
[2020-11-05] MEDS: DOCUSATE SODIUM/SENNA 50/8.6MG TAB PO SCH ×2 (07:10→20:28)
[2020-11-05] MEDS: LIDOCAINE 5% 1 PATCH TD SCH (08:23)
[2020-11-05] MEDS: ASPIRIN 81 MG ECTAB PO SCH (08:23)
[2020-11-05] MEDS: ROSUVASTATIN CALCIUM 20 MG TAB PO SCH (08:23)
[2020-11-05] MEDS: METOPROLOL SUCC 25MG EXT REL TAB PO SCH (08:24)
--- NOTE | 2020-11-05 19:06 | Hospitalist Progress Note ---
Date of Service November 05, 2020 Assessment & Plan (1) Stroke: CT head showed apparent acute vs subacute ischemic stroke right posterior cerebellum (as well as small vessel disease and old right basal ganglia lacunar infarct) Carotid duplex showed 50-69% stenosis of right ICA and 50% stenosis left ICA. Echo did not show any mural thrombi. LDL: 120. Telemetry SR with PAC's--Refused monitor on most occasions PT/OT and Speech eval completed Neurology consulted. Unable to get MRI due to pacemaker. Continue Aspirin, statin. Needs follow-up with neurology in 4 to 6 weeks upon discharge My need ZIO patch as outpatient Waiting for Rehab placement (2) Bilateral carotid artery stenosis: Carotid duplex showed 50-69% stenosis of right ICA and 50% stenosis left ICA. Continue aspirin and statin. (3) Coronary artery disease: Continue aspirin and statin. Started on metoprolol succinate 25 mg daily. (4) HTN (hypertension): Continue metoprolol succinate 25 mg daily. Monitor (5) Dehydration: Received IV fluids. Follow. 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 No Tight glycemic control given advanced age and comorbidities. (7) Abnormal urinalysis: UTI ruled out Urine culture grew more than 3 types of organisms, probable mixed skin jim. Discontinued ceftriaxone. (8) Closed compression fracture of L1 vertebra: Appreciate Orthopedics Input Conservative management recommended. Continue analgesics, back brace, PT, OT. Needs Rehab placement (9) Osteoporosis: L1 compression fracture. 25-OH vitamin D level = 15.9. Continue Calcium, Vitamin D supplementation. (10) Altered mental status: Unknown baseline. Underlying dementia (onset years ago, worse over last 2 months as per family). Possible metabolic encephalopathy/delirium. Mental status Improved (11) Dementia: Reported cognitive decline over past several months. Monitor for delirium. (12) Ambulatory dysfunction: Suspected fall at home. PT / OT. Fall precautions. (13) Renal lesion: CT 10/29/20 - 2 cm lesion lower pole RT kidney. Renal US 11/03 - 2 adjacent lesions right kidney, largest 2.5 cm, probable simple cysts. (14) DVT prophylaxis: SQ Lovenox (15) Discharge planning issues: Rehab when approved Family Medicine follow-up with Dr. Pino. Family Contact: Dann (son) [phone] Admission and Anticipated Discharge Date Admission Date: October 29, 2020 Subjective Patient seen and examined at bedside Lying comfortably in bed today Denies any significant back pain Explained the importance of using brace with ambulation Waiting for placement Denies chest pain, dyspnea, dizziness, nausea, abdominal pain Offers no other complaints Review of Systems Review of Systems: All systems reviewed & are unremarkable except as noted in HPI & below Physical Exam Physical Exam: Physical Exam: Vitals signs as noted above General Appearance:Moderately built and nourished, no apparent distress Head: normocephalic, Atraumatic Eyes: normal inspection, EOMI Neck: supple, Trachea midline Respiratory/Chest: Normal breath sounds, CTA, No accessory muscle use Cardiovascular: S1, S2, No murmur Abdomen/GI:Soft, Non tender, Bowel sounds present Extremities/Musculoskelatal:normal inspection, no edema Neurologic/Psych:AA, grossly no focal neurological deficits, Poor Insight Skin: normal color, warm Results & Data Results & Data ([facility]) Vital Signs (Past 12 Hours) Vital Signs Temp Pulse Resp BP Pulse Ox 11/05/20 16:24 36.9 C 74 20 160/72 H 94 (1) Closed compression fracture of L1 vertebra Encounter type: initial encounter Qualified Code(s): S32.010A - Wedge compression fracture of first lumbar vertebra, initial encounter for closed fracture
[2020-11-05] MEDS: DICLOFENAC SOD 1% GEL 100 GM TUBE EXT PRN (20:30)
[2020-11-05] MEDS: ENOXAPARIN INJ 30 MG/0.3 ML SYR SQ SCH (21:47)
[2020-11-06] MEDS: METOPROLOL SUCC 25MG EXT REL TAB PO SCH (07:51)
[2020-11-06] MEDS: ASPIRIN 81 MG ECTAB PO SCH (07:51)
[2020-11-06] MEDS: POLYETHYLENE (MIRALAX) 17 GM PACK PO SCH (07:56)
[2020-11-06] MEDS: ROSUVASTATIN CALCIUM 20 MG TAB PO SCH (07:56)
[2020-11-06] MEDS: LIDOCAINE 5% 1 PATCH TD SCH (07:56)
[2020-11-06] MEDS: DOCUSATE SODIUM/SENNA 50/8.6MG TAB PO SCH (07:57)
--- NOTE | 2020-11-06 12:15 | Hospitalist Progress Note ---
Date of Service November 06, 2020 Assessment & Plan (1) Stroke: CT head showed apparent acute vs subacute ischemic stroke right posterior cerebellum (as well as small vessel disease and old right basal ganglia lacunar infarct) Carotid duplex showed 50-69% stenosis of right ICA and 50% stenosis left ICA. Echo did not show any mural thrombi. LDL: 120. Telemetry SR with PAC's--Refused monitor on most occasions PT/OT and Speech eval completed Neurology consulted. Unable to get MRI due to pacemaker. Continue Aspirin, statin. Needs follow-up with neurology in 4 to 6 weeks upon discharge My need ZIO patch as outpatient Discharge to Rehab facility today (2) Bilateral carotid artery stenosis: Carotid duplex showed 50-69% stenosis of right ICA and 50% stenosis left ICA. Continue aspirin and statin. (3) Coronary artery disease: Continue aspirin and statin. Started on metoprolol succinate 25 mg daily. (4) HTN (hypertension): Continue metoprolol succinate 25 mg daily. Monitor (5) Dehydration: Received IV fluids. Follow. 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 No Tight glycemic control given advanced age and comorbidities. (7) Abnormal urinalysis: UTI ruled out Urine culture grew more than 3 types of organisms, probable mixed skin jim. Discontinued ceftriaxone. (8) Closed compression fracture of L1 vertebra: Appreciate Orthopedics Input Conservative management recommended. Continue analgesics, back brace, PT, OT. Needs Rehab placement (9) Osteoporosis: L1 compression fracture. 25-OH vitamin D level = 15.9. Continue Calcium, Vitamin D supplementation. (10) Altered mental status: Unknown baseline. Underlying dementia (onset years ago, worse over last 2 months as per family). Possible metabolic encephalopathy/delirium. Mental status Improved (11) Dementia: Reported cognitive decline over past several months. Monitor for delirium. (12) Ambulatory dysfunction: Suspected fall at home. PT / OT. Fall precautions. (13) Renal lesion: CT 10/29/20 - 2 cm lesion lower pole RT kidney. Renal US 11/03 - 2 adjacent lesions right kidney, largest 2.5 cm, probable simple cysts. (14) DVT prophylaxis: SQ Lovenox (15) Discharge planning issues: Rehab today Family Medicine follow-up with Dr. Pino. Family Contact: Dann (son) [phone] Admission and Anticipated Discharge Date Admission Date: October 29, 2020 Subjective Patient seen and examined at bedside No new complaints Back pain is controlled Denies chest pain, dyspnea, dizziness, nausea, abdominal pain Plan to discharge to Rehab facility today Review of Systems Review of Systems: All systems reviewed & are unremarkable except as noted in HPI & below Physical Exam Physical Exam: Physical Exam: Vitals signs as noted above General Appearance:Moderately built and nourished, no apparent distress Head: normocephalic, Atraumatic Eyes: normal inspection, EOMI Neck: supple, Trachea midline Respiratory/Chest: Normal breath sounds, CTA, No accessory muscle use Cardiovascular: S1, S2, No murmur Abdomen/GI:Soft, Non tender, Bowel sounds present Extremities/Musculoskelatal:normal inspection, no edema Neurologic/Psych:AA, grossly no focal neurological deficits, Poor Insight Skin: normal color, warm Results & Data Results & Data ([facility]) Vital Signs (Past 12 Hours) Vital Signs Temp Pulse Resp BP Pulse Ox 11/06/20 07:17 36.3 C L 79 16 170/66 H 94 (1) Closed compression fracture of L1 vertebra Encounter type: initial encounter Qualified Code(s): S32.010A - Wedge compression fracture of first lumbar vertebra, initial encounter for closed fracture
--- NOTE | 2020-11-06 12:26 | Discharge Summary ---
Date of Service November 06, 2020 Admission HPI Per Admitting Provider This is an 84-year-old female who has significant past medical history of T2DM, CAD, HTN, HLD, bilateral carotid artery stenosis, advanced dementia, pacemaker, lumbar spinal stenosis, generalized anxiety disorder who presents to ED secondary to back pain times several days. She was seen and evaluated in ED yesterday which showed an L1 compression fracture. She was discharged to home. Patient lives at home by herself. She is for the past 2 to 3 years. History obtained mostly from son. History difficult with patient secondary to dementia. According to son she has a life alert bracelet. She pressed her life alert bracelet this morning and explained to them she had severe back pain. EMS was then summoned and she was brought back to the ED. According to son she typically ambulates with a walker. Lives by herself and typically is independent of ADLs. He is noticed over the past 2 months a significant decline in her mental status. He admits that she complains of back pain for most of her life and used to see a chiropractor. He also states that she has chronic constipation. He denies any known COVID-19 contacts. ROS unreliable secondary to cognition. Per son patient has not taken any of her medications for at least the past year. "I have tried everything to get her to take her meds." In ED CBC and CMP was generally unremarkable. It did reveal mild leukocytosis at 12.94k, BUN 26, creatinine 0.67, glucose 115, albumin 2.7. SARS-CoV-[address] abdomen pelvis reveals L1 vertebral compression fracture with 25% loss of vertebral height, acute to subacute. Acute to subacute L3 fracture with slight loss of vertebral body height. 2 cm lesion within lower pole of right kidney. Nonemergent ultrasound recommended. Large amount of stool within the rectum. Moderate amount of stool within the colon. Yesterday CT of lumbar spine performed which again confirmed L1 compression fx. In ED she received 600mg of Ibuprofen. Admission Exam Per Admitting Provider Physical Exam Physical Exam: Constitutional: Elderly, female, vitals as above, NAD, sitting up in bed, pleasant, answers questions, very tangential Head: Normocephalic, Atraumatic Eyes: PERRL, conjunctivae normal, anicteric sclerae ENMT: external ear and nose normal, oropharynx normal dry mucous membranes Neck: trachea midline, no thyromegaly normal visual inspection Respiratory: normal respiratory effort, lungs clear to auscultation, no wheeze, rales, rhonchi. Normal insp/exp effort, no accessory muscle use Cardiovascular: RRR, no murmur, no edema Vessels: no JVD or carotid bruit Chest: normal inspection of chest Abdomen: normal bowel sounds, soft, nontender, no hepatosplenomegaly, mildly distended but no pain Musculoskeletal: no cyanosis or clubbing, active range of motion x4, extremities motor strength 5/5, right lower extremity 4/5, unable to assess posterior thorax as patient would not cooperate with exam Skin: no rashes, warm and dry normal turgor , life alert bracelet to RUE Neurologic: PERRL, EOMI, accommodation nl, no face palsy, no dysarthria CN's II-XI intact bilaterally and moves all extremities Psychiatric: A+Ox 1 to self only, euthymic affect : deferred Principal Diagnosis Acute/Subacute CVA Lumbar (L1) compression fracture Ambulatory Dysfunction Renal lesion Discharge Data Allergies Allergy/AdvReac Type Severity Reaction Status Date / Time MILADY Inhibitors Allergy Unknown . Verified 10/29/20 09:59 adhesive Allergy Unknown . Verified 10/29/20 09:59 doxycycline Allergy Unknown . Verified 10/29/20 09:59 Iodinated Contrast Media Allergy Unknown . Verified 10/29/20 09:59 methylparaben Allergy Unknown . Verified 10/29/20 09:59 nystatin Allergy Unknown Verified 10/29/20 09:59 Penicillins Allergy Unknown Verified 10/29/20 09:59 simvastatin Allergy Unknown . Verified 10/29/20 09:59 Tetracyclines Allergy Unknown Verified 10/29/20 09:59 triamcinolone Allergy Unknown . Verified 10/29/20 09:59 Ethylene Diamine Tetraacetic Allergy Unknown . Uncoded 10/29/20 09:59 Acid Consultations 10/29/20 12:58 Consult Case Management - Discharge Planning Routine Consult Orthopedic Surgery Routine 10/29/20 13:36 Consult Neurology Routine Procedures Performed Lumbar CT: 1. Mild subacute superior endplate L1 compression fracture 2. Multilevel spondylytic changes with moderate spinal stenosis at the L2-3 level, severe spinal stenosis at the L3-4 level, and mild to moderate spinal stenosis at the L4-[address]: 1. L1 vertebral compression fracture with 25% loss of vertebral body height. This is acute to subacute. 2. Acute to subacute L3 fracture with slight loss of vertebral body height. Associated prevertebral infiltration. 3. 2 cm lesion within lower pole of the right kidney. This is suboptimally assessed on this unenhanced exam. This could reflect a hyperdense cyst or solid renal lesion. Nonemergent renal ultrasound is recommended. Adjacent water attenuation lesion favors a cyst. 4. Large amount stool within the rectum. Moderate amount stool within the colon. No bowel obstruction. Right Hip X ray: 1. No acute fracture within the pelvis or hips. 2. Severe osteoarthritis of the right hip. Moderate osteoarthritis of the left hip. Head CT: 1. 2 cm hypodensity within the posterior right cerebellar hemisphere suggestive of an acute to subacute infarct. If indicated, an MRI of the brain could be obtained. 2. No acute intracranial hemorrhage or mass effect. Carotid Doppler: 1. Findings suggestive of 50-69% stenosis of the proximal right internal carotid artery. 2. Findings suggestive of approximately 50% stenosis of the proximal left internal carotid artery although evaluation is difficult given extensive atherosclerotic plaque with shadowing. 3. Elevated blood pressure, as above. Repeat CT Head: 1. No significant change from the prior study 2. Persistent right posterior cerebellar hypodensities suggestive of a PICA distribution infarct. 3. No evidence of acute hemorrhage Renal USD: Right renal lesions measuring 2.5 and 1.3 cm. These appear to represent simple cysts. No definite solid renal lesions identified. Ordered Studies 10/29/20 09:16 CT abd pelvis wo con Stat 10/29/20 12:25 CT head/brain wo con Stat 10/29/20 15:00 US carotid doppler BI Routine 10/30/20 09:00 CT head/brain wo con Routine 11/03/20 09:30 US renal/blad retro comp Routine Hospital Course (1) Stroke: CT head showed apparent acute vs subacute ischemic stroke right posterior cerebellum (as well as small vessel disease and old right basal ganglia lacunar infarct) Carotid duplex showed 50-69% stenosis of right ICA and 50% stenosis left ICA. Echo did not show any mural thrombi. LDL: 120. Telemetry SR with PAC's--Refused monitor on most occasions PT/OT and Speech eval completed Neurology consulted. Unable to get MRI due to pacemaker. Continue Aspirin, statin. Needs follow-up with neurology in 4 to 6 weeks upon discharge My need ZIO patch as outpatient Discharge to Rehab facility today (2) Bilateral carotid artery stenosis: Carotid duplex showed 50-69% stenosis of right ICA and 50% stenosis left ICA. Continue aspirin and statin. (3) Coronary artery disease: Continue aspirin and statin. Started on metoprolol succinate 25 mg daily. (4) HTN (hypertension): Continue metoprolol succinate 25 mg daily. Monitor (5) Dehydration: Received IV fluids. Follow. 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 No Tight glycemic control given advanced age and comorbidities. (7) Abnormal urinalysis: UTI ruled out Urine culture grew more than 3 types of organisms, probable mixed skin jim. Discontinued ceftriaxone. (8) Closed compression fracture of L1 vertebra: Appreciate Orthopedics Input Conservative management recommended. Continue analgesics, back brace, PT, OT. Needs Rehab placement (9) Osteoporosis: L1 compression fracture. 25-OH vitamin D level = 15.9. Continue Calcium, Vitamin D supplementation. (10) Altered mental status: Unknown baseline. Underlying dementia (onset years ago, worse over last 2 months as per family). Possible metabolic encephalopathy/delirium. Mental status Improved (11) Dementia: Reported cognitive decline over past several months. Monitor for delirium. (12) Ambulatory dysfunction: Suspected fall at home. PT / OT. Fall precautions. (13) Renal lesion: CT 10/29/20 - 2 cm lesion lower pole RT kidney. Renal US 11/03 - 2 adjacent lesions right kidney, largest 2.5 cm, probable simple cysts. (14) DVT prophylaxis: SQ Lovenox (15) Discharge planning issues: Rehab today Family Medicine follow-up with Dr. Pino. Family Contact: Dann (son) [phone] Total Time Total Time Spent Total Time Spent (In Minutes): 44 minutes Total Time Includes: Examination of the Patient, Discharge Planning, Medication Reconciliation, Communication With Other Providers and Other Discharge Plan Discharge Items Patient Disposition: Transfer [facility] Reason For Visit: L1 COMPRESSION FRACTURE, AMBULATORY DYSFUNCTION Discharge Diagnosis: Acute/Subacute CVA Lumbar (L1) compression fracture Ambulatory Dysfunction Renal lesion Activity: Per Instructions section Exercise/Sports: Gradually increase as tolerated Non-emergency contact: Primary Care Provider and Neurologist Call non-emergency contact if: you have any medication questions, your symptoms worsen, your pain is not controlled, your pain is worsening, your pain is unusual for you, your pain is concerning for you and you have a fever Follow-up/Referrals: Diaz Pino MD [Primary Care Provider] - ( ) Dietitian Info: Minced and Moist Diet: Carb Consistent or DM2 Addtl Attending Provider Instructions: Follow-up with your primary care physician Dr. Morton in 1 week upon discharge from rehab facility Follow-up with your neurologist Teresa Guevara PA-C in 4 to 6 weeks after discharge from rehab facility. Follow-up with your orthopedic surgeon as needed for back pain. You were noted to have kidney lesions on your CT scan. Further work-up as per ER physician as outpatient. Seek immediate medical attention if your symptoms reoccur or worsen Risk Factors for Stroke: You can reduce your chances of stroke by working with your medical provider to adopt a healthy lifestyle. Some specific ways to lower your chance of stroke are: * If you are a smoker, now is the time to stop smoking cigarettes * If you are diabetic, improve the control of your blood sugars * Avoid excessive amounts of alcohol * Control high blood pressure * Lose weight if you are overweight * Be sure to lead an active lifestyle * Eat a healthy diet low in salt, cholesterol and fat You should know about other risk factors for stroke that you are unable to control. These include: * Age 55 years or older * Male gender * Certain racial groups: , or / * Family History of Stroke, Mini stroke or Heart Attack * Sickle Cell Disease Follow Up: It is important for you to keep your follow up appointments with your medical provider. Who to Call and When: Medical Emergencies: Call 911 immediately if you experience any of the following warning signs and symptoms of Stroke: * Sudden numbness or weakness of the face, arm or leg, especially on one side of the body * Sudden confusion, trouble speaking or understanding * Sudden trouble seeing in one or both eyes * Sudden trouble walking, dizziness, loss of balance or coordination * Sudden severe headache with no cause Do not delay calling 911 if you experience any warning signs or symptoms of a stroke. Delay in seeking medical attention may affect what treatments can be given to you. . Pending Studies at Discharge: No Stand-Alone Forms: My [facility] Skilled Items Patient informed of condition?: Yes DNR: No Discharge Level of Care: Skilled Communicable Disease: No Discharge Prognosis: Improving Lines: None Urinary Catheter: No Medications and DC Order Prescriptions: New polyethylene glycol 3350 [Miralax] 17 gram Powder In Packet 17 g PO DAILY PRN (Reason: constipation) Qty: 30 RF: 0 aspirin 81 mg Tablet,Delayed Release (Dr/Ec) 81 mg PO QAM 30 Days Qty: 30 RF: 0 metoprolol succinate 25 mg Tablet Extended Release 24 Hr 25 mg PO QAM 30 Days Qty: 30 RF: 0 rosuvastatin [Crestor] 20 mg Tablet 20 mg PO QAM 30 Days Qty: 30 RF: 0 diclofenac sodium [Voltaren] 1 % Gel 2 g EXT TID PRN (Reason: pain) 10 Days Qty: 1 RF: 0 ergocalciferol (vitamin D2) 1,250 mcg (50,000 unit) Capsule 50,000 unit PO Q7D Qty: 5 RF: 0 Continued tramadol [Ultram] 50 mg tablet 50 mg PO Q6H PRN (Reason: pain) Qty: 30 RF: 0 Discharge Orders: Discharge Order (Routine); Ordered 11/06/20 Ordered By: Kaiden Ambriz Admission Data Admit Date/Time: 10/29/20 11:28 Attending Provider: Kaiden Ambriz Admit Provider: Nura Caballero Primary Care Provider: Diaz Pino Other Providers: Nura Caballero ; [facility] ; Keshav Knowles ; Adiel Pastrana Other Interventions: Discharge Summary Assessment (RN) Last Done: 11/06/20 12:23
== END 2020-11-06 13:06 | DRG 64 ==
LOC: ED 08:46 → 3N 11:28 → SUATTDRO 11:28 → 3N 12:24 → 2W 15:03
DX: W19.XXXA Unspecified fall, initial encounter; I25.10 Atherosclerotic heart disease of native coronary artery without angina pectoris; Z88.0 Allergy status to penicillin; Z79.899 Other long term (current) drug therapy; D72.829 Elevated white blood cell count, unspecified; R26.9 Unspecified abnormalities of gait and mobility; Z95.0 Presence of cardiac pacemaker; I10 Essential (primary) hypertension; Z88.8 Allergy status to other drugs, medicaments and biological substances; Z91.041 Radiographic dye allergy status; E11.9 Type 2 diabetes mellitus without complications; I63.89 Other cerebral infarction; M47.816 Spondylosis without myelopathy or radiculopathy, lumbar region; S32.010A Wedge compression fracture of first lumbar vertebra, initial encounter for closed fracture; Z79.82 Long term (current) use of aspirin; Z88.1 Allergy status to other antibiotic agents; Z87.891 Personal history of nicotine dependence; F41.1 Generalized anxiety disorder; M48.061 Spinal stenosis, lumbar region without neurogenic claudication; X58.XXXA Exposure to other specified factors, initial encounter; G93.41 Metabolic encephalopathy; F03.90 Unspecified dementia, unspecified severity, without behavioral disturbance, psychotic disturbance, mood disturbance, and anxiety; E86.0 Dehydration; Z86.73 Personal history of transient ischemic attack (TIA), and cerebral infarction without residual deficits; Y92.009 Unspecified place in unspecified non-institutional (private) residence as the place of occurrence of the external cause; E78.5 Hyperlipidemia, unspecified; M80.08XA Age-related osteoporosis with current pathological fracture, vertebra(e), initial encounter for fracture